=== PATIENT | female | born 1985 | race Caucasian/White ===

== ENCOUNTER → 2017-12-01 13:37 | Outpatient (CLI) | payer MEDICAID, SELFPAY ==
[2017-12-06 11:13] LABS: HPV Reflexed? NOT INDICATED
== END ==
PROVIDERS: PCP Family Medicine; Visit Provider Obstetrics & Gynecology
DX: Z12.4 Encounter for screening for malignant neoplasm of cervix (principal)
CPT/HCPCS: 88175; G0145

== ENCOUNTER → 2018-10-02 | Outpatient (CLI) | payer OTHER, SELFPAY | END | disposition home or self-care (01) | LOC: SL 11:31 | PROVIDERS: Family Provider Family Medicine; PCP Family Medicine; Referring Provider Family Medicine; Visit Provider Family Medicine | DX: G47.10 Hypersomnia, unspecified (principal); E66.01 Morbid (severe) obesity due to excess calories; Z68.41 Body mass index [BMI] 40.0-44.9, adult; R53.83 Other fatigue; R06.83 Snoring | CPT/HCPCS: 95806 ==

== ENCOUNTER → 2018-10-03 | Outpatient (CLI) | payer OTHER, SELFPAY ==
[2017-03-15 10:11] VITALS: BMI 38.4
[2018-10-05 21:08] LABS: Endomysial Antibody IgA Negative (Negative)
[2018-10-08 13:53] LABS: Immunoglobulin A 284 mg/dL (87-352); t-Transglutaminase IgA <2 U/mL (0-3)
== END | disposition home or self-care (01) ==
LOC: MTLAB 16:44
PROVIDERS: Family Provider Family Medicine; PCP Family Medicine; Referring Provider Internal Medicine Gastroenterology; Visit Provider Internal Medicine Gastroenterology
DX: R10.9 Unspecified abdominal pain (principal); R19.7 Diarrhea, unspecified
CPT/HCPCS: 36415; 82784; 83516; 86140; 86255

== ENCOUNTER 2018-10-21 19:49 | Emergency (ER) | payer OTHER, SELFPAY ==
[2018-10-21 19:50] VITALS: BP 160/112; PULSE 80; RESP 20; TEMP 37.3; O2SAT 100; BMI 41.1
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
[2018-10-21 21:48] VITALS: RESP 16
== END 2018-10-21 21:54 | disposition home or self-care (01) ==
LOC: ED 21:35
PROVIDERS: Emergency Provider Emergency Medicine; Family Provider Family Medicine; PCP Family Medicine
DX: S20.229A Contusion of unspecified back wall of thorax, initial encounter (principal); S40.012A Contusion of left shoulder, initial encounter; E06.3 Autoimmune thyroiditis; Z79.899 Other long term (current) drug therapy; Y04.2XXA Assault by strike against or bumped into by another person, initial encounter; Y93.89 Activity, other specified; Y92.009 Unspecified place in unspecified non-institutional (private) residence as the place of occurrence of the external cause; Y99.8 Other external cause status
CPT/HCPCS: 71046; 73010; 99282

== ENCOUNTER → 2019-01-15 10:12 | Outpatient (CLI) | payer MEDICAID, SELFPAY ==
--- NOTE | 2019-01-15 10:14 | US_ITS ---
STUDY: THYROID ULTRASOUND REASON FOR EXAM: Female, 33 years old. Thyromegaly. Jocelyn's. TECHNIQUE: Ultrasound evaluation of the thyroid was performed with real-time and static ortiz-scale imaging. COMPARISON: None. FINDINGS: RIGHT LOBE: The right lobe of the thyroid gland measures 5.0 x 1.5 x 1.7 cm. There is a homogeneous echotexture. There are no demonstrated solid, cystic or complex lesions. LEFT LOBE: The left lobe of the thyroid gland measures 4.4 x 1.5 x 1.3 cm. There is a homogeneous echotexture. There is a 1 cm hypoechoic lower pole nodule. ISTHMUS: The isthmus measures 3 mm . The regional lymph nodes are normal. US/Thyroid IMPRESSION: 1 cm left thyroid nodule which needs follow-up in 1 year. Otherwise unremarkable. Electronically Signed: Henry Gonzalez MD at 23:49 EST , Service support ,
== END ==
PROVIDERS: Family Provider Family Medicine; PCP Family Medicine; Referring Provider Family Medicine; Visit Provider Family Medicine
DX: E06.3 Autoimmune thyroiditis (principal)
CPT/HCPCS: 76536

== ENCOUNTER → 2020-02-04 15:56 | Outpatient (CLI) | payer MEDICAID, SELFPAY ==
[2019-03-15 13:58] VITALS: BMI 38.2
[2020-01-23 15:58] VITALS: BMI 35.2
--- NOTE | 2020-02-04 15:57 | US_ITS ---
HISTORY: NODULAR GOITER COMPARISON: 01/15/2019 TECHNIQUE: Real-time transabdominal imaging of the thyrod gland was performed. # of images incl. paperwork: 68 FINDINGS: RIGHT LOBE: The right lobe of the thyroid gland measures 5.0 x 1.5 x 1.7 cm. Normal parenchymal echogenicity. No focal thyroid nodules. LEFT LOBE: The left lobe of the thyroid gland measures 4.6 x 1.3 x 1.3 cm. Normal parenchymal echogenicity. There is a lower pole well-circumscribed round echogenic lesion that remains unchanged measuring 1.1 x 0.9 x 1.0 cm compatible with TIA-RADS 3. ISTHMUS: The isthmus measures 0.3 cm. OTHER: No adenopathy is seen in either jugular chain. US/Thyroid IMPRESSION: 1. Stable left lower pole 1.1 cm nodule compatible with TI-RADS Category 3: Mildly suspicious. (FNA if equal/greater than 2.5 cm, follow if equal/greater than 1.5 cm at 1, 3, 5 years). at 2323 Reported and signed by: Fred Walton MD Electronically Signed: Fred Walton MD at 23:22 EST Tel , Service support ,
== END ==
PROVIDERS: PCP Family Medicine; Referring Provider Internal Medicine Endocrinology, Diabetes & Metabolism; Visit Provider Internal Medicine Endocrinology, Diabetes & Metabolism
DX: E04.9 Nontoxic goiter, unspecified (principal)
CPT/HCPCS: 76536

== ENCOUNTER 2020-03-03 12:14 | Day surgery (SDC) | payer MEDICAID, SELFPAY ==
[2020-01-23 15:58] VITALS: BMI 35.2
--- NOTE | 2020-03-02 17:19 | PCM.HP.BLA ---
History and Physical Date of Admission: 03/03/20 HISTORY OF PRESENT ILLNESS 34 year old woman presents for evaluation for TBSE. She has concerns about lesions on her right upper lip near the perialar area, left neck, and upper mid back that have increased in size over the last several months and have become more raised in configuration. She denies trauma. She denies fever. She denies any drainage from these lesions. She presents at this time for further evaluation and treatment. PAST MEDICAL HISTORY Neoplasm of skin of upper back excluding scapular region Neoplasm of skin of neck Neoplasm of skin of lip Anemia Anxiety and depression Back pain Fatigue Frequent headaches Gastrointestinal problem Goiter Jocelyn's disease Hormone deficiency Knee pain Thyroid disease PAST SURGICAL HISTORY Gave to child recently tonsillectomy and adenoidectomy ALLERGIES latex penicillin G sulfamethoxazole [From Bactrim] trimethoprim [From Bactrim] MEDICATIONS dextroamphetamine-amphetamine Ropinirole HCl [Requip] Triamcinolone Acetonide [Nasacort] biotin cholecalciferol (vitamin D3) vitamin B complex levothyroxine fluoxetine FAMILY HISTORY Other - Anemia, Anesthesia complication, Asthma, CVA (cerebral vascular accident), Depression, Diabetes, Hypertension, Thyroid disorder SOCIAL HISTORY Smoking Status: Never smoker alcohol intake: current substance use type: does not use REVIEW OF SYSTEMS General - Denies fever and weight loss. Has fatigue. Eyes - Denies cataracts and glaucoma. ENT - Denies nasal congestion and sore throat. Endocrine - Has excessive thirst and urination. Has thyroid disease. Has heat and cold intolerance. Skin - Denies skin cancer. Has enlarging lesions right upper lip near the perialar area, left neck, and upper mid back. Musculoskeletal - Has joint pain, joint stiffness. Denies weakness of muscles and joints, back pain, and arthritis. Neuro - Denies headaches. Cardiovascular - Denies chest pain, fatigue, and shortness of breath with exertion. Psych - Has anxiety. Has depression. Has claustrophobia. Respiratory - Denies chronic cough and shortness of breath. Gastrointestinal - Denies nausea, vomiting, diarrhea, and constipation. Has IBS. Hematologic - Denies abnormal bruising and bleeding. Genitourinary - Denies hematuria. Has urinary frequency. PHYSICAL EXAMINATION General - Alert and Oriented. HEENT - PERRL. EOMI. Throat is clear. On the right upper lip near the perialar area is a lesion that is nodular. Measures 4 mm. Has central scab. Has irregular borders. Is raised in configuration. No ulceration. Lesion is nontender. No other suspicious lesions noted. Neck - Supple and nontender. No cervical adenopathy. On the left neck is a lesion that measures 7 mm. Has irregular borders. Some pigmentation. Is raised in configuration. No ulceration. Lesion is nontender. No other suspicious lesions noted. Lungs - Clear to auscultation. Heart - Regular rate and rhythm. Abdomen - Soft and nondistended. No suspicious lesions noted. Extremities - FROM. No axillary adenopathy. Radial pulses are palpable. No suspicious lesions noted. Back - On the upper mid back is a lesion that measures 8 mm. Has irregular borders. Some pigmentation. Is raised in configuration. No ulceration. Lesion is nontender. No other suspicious lesions noted. Neuro - CN II-XII grossly intact. Psych - Normal mood and affect. ASSESSMENT 1. 4 mm lesion right upper lip near the perialar area. 2. 7 mm lesion left neck. 3. 8 mm lesion upper mid back. PLAN Recommend excising these lesions (right upper lip near the perialar area, left neck, and upper mid back) and send them to Pathology for analysis to rule out carcinoma. If actinic damage or carcinoma is present, then further excision will be done with skin flap reconstruction. Surgery will be done on an outpatient basis under general anesthesia. Patient was informed of the risks and complications of the procedure including alternatives to surgery. These were discussed with the patient personally. Patient voices understanding and wishes to proceed. Some of the risks and complications were included in a form from the [employer]. We discussed the current risks associated with COVID-19. While it is understood that there is a community spread of COVID-19, the risk of ava COVID-19 while at [facility] ([facility]) is very low; however, the risk cannot be completely mitigated because of the community spread of the disease. We discussed in detail the risk of exposure to and/or potential harm posed by the COVID-19 virus with having a surgery/procedure at this time versus the risk of delaying the surgery/procedure. It is not possible to know either the risk of delaying the surgery or procedure or chance of getting an infection with perfect accuracy, but a joint decision was made to proceed at this time with the scheduled surgery/procedure as indicated on the consent form. Patient was notified that we will need to comply with any screening or testing [facility] wishes to perform or that surgery may be delayed for any positive results. Discussed with the patient that I was tested for COVID-19 on 08/15/19 which was negative and on 08/29/19 which was negative and on 09/12/19 which was negative and on 09/26/19 which was negative and on 10/10/19 which was negative and on 10/31/19 which was negative and on 11/21/19 which was negative and on 12/26/19 which was negative and on 01/16/20 which was negative and on 02/04/20 which was negative. My testing regimen at this time is to be COVID-19 tested every 2 weeks or so. I received the COVID-19 vaccine (Moderna) on 02/12/20. Procedure Criteria Procedure Type: Elective COVID Risk Discussion: The surgeon/proceduralist and patient have discussed in detail the risk of exposure to and/or potential harm posed by the COVID-19 virus with having a surgery/procedure at this time versus the risk of delaying the surgery/procedure. It is not possible to know either the risk of delaying the surgery or procedure or chance of getting an infection with perfect accuracy, but a joint decision was made between the patient and the surgeon/proceduralist to proceed at this time with the scheduled surgery/procedure as indicated on the consent form.
[2020-03-03] VITALS (8 sets, daily range): BP systolic 98–127; BP diastolic 61–88; PULSE 71–83; RESP 16–18; TEMP 36.6–36.8; O2SAT 95–98; BMI 35.8
--- NOTE | 2020-03-03 | LES_PTH ---
PATIENT: ELLIOTT KATZ LOC: [facility] [place] U#:[id number] AGE/SX: 35/F ROOM: RE03/03/[address]: Dr. Aman Hollins MD : 1985 BED: DIS: 03/03/2020 SPEC #: [id number] RECD: 03/03/20 14:47 STATUS: TYSHAWN RESara #: [id number] ENA: 03/03/20 00:[address]: Aman Hollins DEPT: SURGICAL PATHOLOGY RECD BY: Sona Moreno ENTERED: 03/03/20 15:06 SP TYPE: Lesion OTHR DR: Dr. Og Hopson DO Tissues: A - Skin of neck, NOS B - Skin of lip, NOS Procedures: Frozen Section (charge) Surgery Specimen Level IV HEADER OPERATION: Excision lesions, right upper lip by perialar area, left neck and upper mid back PRE-OP DIAGNOSIS: 4 mm lesion right upper lip near the perialar area; 7 mm lesion left neck; 8 mm lesion upper mid back TISSUE SUBMITTED: A - 7 mm lesion left neck, FS, B - 4 mm lesion right upper lip near the perialar area, FS, C - 8 mm lesion upper mid back, suture at 12 o'clock FROZEN SECTION DIAGNOSIS A. Skin lesion of left neck, shave biopsy: Intradermal nevus. B. Skin lesion, right upper lip, shave biopsy: Intradermal nevus. AM:clementine 03/03/2020 Case has been reviewed in consultation with Dr. Dukes who concurs with the above diagnosis. IDC:SJ MICROSCOPIC DIAGNOSIS A. Skin lesion of left neck, shave biopsy: Intradermal nevus. B. Skin lesion of right upper lip, shave biopsy: Intradermal nevus. C. Skin lesion of upper mid back, biopsy: Intradermal nevus. AM:clementine 03/05/2020 MICROSCOPIC DESCRIPTION Slides are reviewed. GROSS DESCRIPTION A - Received fresh for frozen section diagnosis labeled with the patient's name is a specimen designated left neck. The specimen consists of a piece of mckinney-brown skin measuring 0.6 x 0.2 x 0.1 cm. The specimen is inked and submitted entirely for frozen section diagnosis in one cassette. / AM:clementine 03/03/20 B - Received fresh for frozen section diagnosis labeled with the patient's name is a specimen designated right hip lip near the perialar area. The specimen consists of a piece of mckinney-brown skin measuring 0.5 x 0.2 x 0.1 cm. The specimen is inked and submitted entirely for frozen section diagnosis in one cassette. / AM:clementine 03/03/20 C - Received in fixative is one container labeled with the patient's name and designated lesion, upper mid back. The specimen consists of an ellipse of light mckinney soft tissue measuring 1.8 x 0.5 cm and a depth of excision measuring 0.7 cm. A suture is present along one aspect. This aspect is inked in black ink. The opposite surface is inked in blue ink. Serial sections reveal an exophytic mckinney lesion measuring 5 mm in greatest dimension. The specimen is serially sectioned and totally submitted in two cassettes as follows: 1 - tips, 2 - remainder of the specimen. / AM:clementine 03/04/20 TC:5 CPT: 07584 x3, 54615 x2
[2020-03-03 12:35] LABS: Internal QC Validated? YES +Cl - CLEAR BKGD; Pregnancy, Urine Negative Negative
[2020-03-03] MEDS: Lactated Ringers 1,000 ML 100 ML IV ×2 (12:46→15:16)
[2020-03-03] MEDS: Mupirocin Ointment 22gm Tube 1 APPLIC (14:55)
[2020-03-03] MEDS: Silver Nitrate (BKC) 1 EACH (14:56)
[2020-03-03] MEDS: Lidocaine 1%/Epi 1:200 (30ml) 30 ML AMPUL (15:00)
--- NOTE | 2020-03-03 15:23 | PCM.OPRPT ---
Report of Operation Date of Procedure: 03/03/20 Pre-Operative Diagnosis: 1. 4 mm lesion right upper lip near the perialar area. 2. 7 mm lesion left neck. 3. 8 mm lesion upper mid back. Post-Operative Diagnosis: 1. 4 mm intradermal nevus right upper lip near the perialar area. 2. 7 mm intradermal nevus left neck. 3. 8 mm lesion upper mid back. Surgery/Procedure Performed:: 1. Intradermal excision 4 mm intradermal nevus right upper lip near the perialar area. 2. Intradermal excision 7 mm intradermal nevus left neck. 3. Excision 8 mm lesion upper mid back with 3 cm layered closure. Description of Surgical Findings:: 34 year old woman presents for evaluation for TBSE. She has concerns about lesions on her right upper lip near the perialar area, left neck, and upper mid back that have increased in size over the last several months and have become more raised in configuration. She denies trauma. She denies fever. She denies any drainage from these lesions. Patient was informed of the risks and complications of the procedure including alternatives to surgery. These were discussed with the patient personally. Patient voices understanding and wishes to proceed. Some of the risks and complications were included in a form from the [employer]. Frozen section right upper lip near the perialar area - intradermal nevus. Frozen section left neck - intradermal nevus. front desk coordinator: None Type of Anesthesia:: Local MAC - xylocaine with epinephrine and IV sedation. Specimen's removed: 1. Lesion right upper lip near the perialar area to Pathology as a frozen section. 2. Lesion left neck to Pathology as a frozen section. 3. Lesion upper mid back to Pathology. Drains: None. Estimated Blood Loss (mL): 2 ml. Description of Procedure: Patient was taken to OR in supine position and was given IV sedation. The face and neck areas were prepped and draped in the usual fashion. SCD's were placed for DVT prophylaxis. Perioperative antibiotics were given intravenously. For the procedure, I wore an N95 mask and wore proper eyewear protection. The lesions right upper lip near the perialar area and the left neck were infiltrated with xylocaine and epinephrine. After waiting 5 minutes for the anesthetic to take effect, I proceeded with intradermal excision of both of these lesions (right upper lip near the perialar area and the left neck). Both lesions were sent to Pathology as a frozen section for analysis to rule out carcinoma. Frozen section showed both of these lesions (right upper lip near the perialar area and the left neck) were intradermal nevi and no carcinoma seen. Hemostasis was obtained with silver nitrate chemical cauterization. The patient was then placed in the lateral position and the back was prepped and draped in the usual fashion. The lesion upper mid back was infiltrated with xylocaine with epinephrine. After waiting 5 minutes for the anesthetic to take effect, I excised this lesion in an oblique elliptical fashion down into the subcutaneous tissue. A suture was marked at the 12 oclock position for pathology orientation. The lesion was sent to Pathology for analysis to rule out carcinoma. I excised the lesion with a 1 mm margin in all directions thus making it a 10 mm excision and a 3 cm layered closure. Hemostasis was obtained with electrocautery. The wound was closed in a layered fashion with 4-0 Monocryl interrupted sutures for the deep dermis and subcutaneous tissue. The skin was approximated with 4-0 Prolene simple interrupted sutures. Antibiotic ointment was applied to the suture line followed by a gauze compression dressing. Antibiotic ointment was also applied to the two shave lesions on the right upper lip near the perialar area and the left neck. Patient tolerated the procedure well and was sent to PACU in satisfactory condition. Patient will be sent home on antibiotics and pain medication. She will keep her head elevated during the initial postoperative period. Patient will followup in a week for a wound check and for discussion of the pathology report and for removal of the sutures. Grafts/Implants Used: None. - Complications None. - Admit VTE Documentation VTE Present on Admission: No VTE Mechan Device Prophylaxis: SCD's VTE Pharm Prophylaxis ordered?: No Surgery Charges CPT - 79956 ICD-10 - D23.30, D49.2 61247 D23.4, D49.2 24956 D49.2 58383 D49.2
--- NOTE | 2020-03-03 15:33 | PCM.DC ---
You will use the following diet at home:: No restrictions Discharge Activity: May not drive while taking narcotic pain medications., May Shower - in two days., - - no heavy lifting. Return to work on:: 03/04/20 - tentative May shower in (days): 2 May resume sexual activity in: No Restrictions Weight Bearing Status: Weight bearing as tolerated Lifting Restrictions: 20 lbs. Keep extremity elevated above heart level: - - elevate head. Call your doctor if your incision/area has: Continuous Slow Oozing, Sudden Increased Bleeding, Increased Pain/ Swelling, Increased Redness, Foul Smelling Discharge, Swelling at the incision site Call your doctor if you observe: Fever of 101 or Higher, Coldness, Increased Pain, Shortness of breath, Chest pain, Calf discomfort, Uncontrolled pain Suture Line Care: - - apply antibiotic ointment to suture line daily. Remove Dressing in (days):: 2 - back dressing. Cleanse incision/area with: - - may get incisions wet in shower in two days. Allergies/Adverse Reactions: Allergies latex Allergy (Intermediate, Verified 03/03/20 12:30) body rash penicillin G Allergy (Verified 03/03/20 12:30) Hives sulfamethoxazole [From Bactrim] Allergy (Verified 03/03/20 12:30) Anaphylaxis trimethoprim [From Bactrim] Allergy (Verified 03/03/20 12:30) Anaphylaxis Medications to take at Discharge dextroamphetamine-amphetamine 10 mg tablet 10 mg PO QDAY 01/20/17 dextroamphetamine-amphetamine 30 mg tablet 30 mg PO QDAY 01/20/17 Ropinirole HCl [Requip] 2 mg PO QHS 10/21/18 Triamcinolone Acetonide [Nasacort] 10.8 ml NS QHS 10/21/18 biotin 2,500 mcg capsule 2,500 mcg PO DAILY 03/15/19 cholecalciferol (vitamin D3) 250 mcg (10,000 unit) capsule 5,000 unit PO DAILY cap 03/15/19 vitamin B complex 1 tab PO DAILY 03/15/19 levothyroxine 112 mcg tablet 112 mcg PO DAILY #30 tab 11/13/19 fluoxetine 40 mg capsule 40 mg PO DAILY 01/23/20 Clindamycin HCl [Cleocin] 300 mg PO TID #12 cap 03/03/20 Oxycodone HCl/Acetaminophen [Percocet 5/325] 1 tablet PO Q6H PRN PRN 4 Days #15 tablet 03/03/20 The following prescriptions were given: Clindamycin HCl [Cleocin] 300 mg PO TID #12 cap Transmission Status: Pending to [facility] Oxycodone HCl/Acetaminophen [Percocet 5/325] 1 tablet PO Q6H PRN PRN 4 Days #15 tablet PRN Reason: Pain Score 6-10 Transmission Status: Sent to [facility] Primary Care Physician: Og Hopson DO [Primary Care Provider] - Test Results: Test results from this visit will be discussed in further detail at your follow-up appointment, if applicable. Please Follow Up With: Aman Hollins MD When: one week. call [phone] for appt. Proposed Discharge Date: 03/03/20
== END 2020-03-03 16:53 | disposition home or self-care (01) ==
LOC: SDC 12:15 → AC 12:15
PROVIDERS: Anesthesiology; PCP Family Medicine; Referring Provider Surgery; Visit Provider Surgery
PROC: (CPT 11400; principal; 2020-03-03 13:20)
DX: D23.0 Other benign neoplasm of skin of lip (principal); D23.4 Other benign neoplasm of skin of scalp and neck; D23.5 Other benign neoplasm of skin of trunk; F41.9 Anxiety disorder, unspecified; F32.9 Major depressive disorder, single episode, unspecified; E06.3 Autoimmune thyroiditis; Z79.899 Other long term (current) drug therapy; Z20.822 Contact with and (suspected) exposure to COVID-19
CPT/HCPCS: 00300; 11400; 11420; 11440; 12032; 81025; 87426; 88305; 88331; C9803; J7120

== ENCOUNTER 2020-04-15 17:41 | Emergency (ER) | payer MEDICAID, SELFPAY ==
[2020-04-15 17:44] VITALS: BP 121/69; PULSE 80; RESP 18; TEMP 37.2; O2SAT 93; BMI 40.4
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
[2020-04-15] MEDS: HYDROmorphone 1 MG/ML Syringe IV (18:01)
--- NOTE | 2020-04-15 18:16 | RAD_ITS ---
STUDY: X-RAY - RIGHT WRIST REASON FOR EXAM: Female, 35 years old. Pain. TECHNIQUE: 3 view(s) of the wrist were obtained. COMPARISON: None. FINDINGS: Normal visualized distal radius and ulna. Normal radiocarpal articulation. Normal distal radioulnar articulation. Normal carpal bones. Normal carpal articulations. Normal carpometacarpal articulation of the thumb. Normal second through fifth carpometacarpal articulations. Normal visualized metacarpal bones. The soft tissue structures are unremarkable. RAD/Wrist min 3 Views IMPRESSION: Normal x-ray examination of the wrist. Electronically Signed: Subhash Vivar DO at 18:39 EST Tel [phone], Service support ,
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
--- NOTE | 2020-04-15 18:36 | ED.RN ---
RN CALLED FOR EKG, NO OLD EKGS IN MUSE
--- NOTE | 2020-04-15 18:45 | EKG12_ITS ---
Test Reason : CHEST HEAVYNESS Blood Pressure : / mmHG Vent. Rate : 073 BPM Atrial Rate : 073 BPM P-R Int : 142 ms QRS Dur : 086 ms QT Int : 392 ms P-R-T Axes : -18 -22 139 degrees QTc Int : 431 ms Normal sinus rhythm Nonspecific T wave abnormality Abnormal ECG Consider repeat EKG Confirmed by RAMÓN QUARLES, ZAN ([id number]), dictionary editor SILVERIO HA ([id number]) on 04/20/2020 2:33:50 PM Referred By: ARTUR Confirmed By:ZAN MELGAR MD
[2020-04-15] MEDS: Lidocaine 1% (20 ml mdv) 20 ML Vial INFILT ×2 (18:57→20:20)
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
[2020-04-15 20:05] VITALS: BP 103/56; PULSE 97; RESP 18; O2SAT 98
[2020-04-15] MEDS: Morphine 4 MG/ML Syringe IV (20:32)
[2020-04-15] MEDS: LORazepam 2 MG/ML Syringe 1 MG IV (20:32)
[2020-04-15 21:43] VITALS: BP 103/70; PULSE 68; RESP 16; TEMP 36.8; O2SAT 98
== END 2020-04-15 21:45 | disposition home or self-care (01) ==
PROVIDERS: Emergency Provider Emergency Medicine; PCP Family Medicine
DX: S81.011A Laceration without foreign body, right knee, initial encounter (principal); S63.501A Unspecified sprain of right wrist, initial encounter; E03.9 Hypothyroidism, unspecified; F32.9 Major depressive disorder, single episode, unspecified; Z79.899 Other long term (current) drug therapy; V27.4XXA Motorcycle driver injured in collision with fixed or stationary object in traffic accident, initial encounter; Y93.55 Activity, bike riding; Y92.410 Unspecified street and highway as the place of occurrence of the external cause; Y99.8 Other external cause status
CPT/HCPCS: 12004; 73110; 73564; 73700; 93005; 96374; 96375; 99285

== ENCOUNTER 2020-04-29 17:39 | Outpatient (RCR) | payer MEDICAID, SELFPAY ==
[2020-04-21 13:41] VITALS: BMI 36.2
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
== END 2020-04-29 19:00 | disposition home or self-care (01) ==
LOC: PT 17:39
PROVIDERS: PCP Family Medicine; Referring Provider Orthopaedic Surgery; Visit Provider Orthopaedic Surgery
DX: S81.011A Laceration without foreign body, right knee, initial encounter (principal)
CPT/HCPCS: 97110; 97161

== ENCOUNTER → 2020-04-30 | Outpatient (CLI) | payer MEDICAID, SELFPAY | END | disposition home or self-care (01) | LOC: LABSPEC 10:38 | PROVIDERS: Visit Provider Orthopaedic Surgery | DX: S81.011D Laceration without foreign body, right knee, subsequent encounter (principal) | CPT/HCPCS: 87070; 87075; 87077; 87186; 87205 ==

== ENCOUNTER 2020-05-01 12:30 | Observation (INO) | payer MEDICAID, SELFPAY ==
[2020-04-21 13:41] VITALS: BMI 36.2
[2020-05-01] VITALS (11 sets, daily range): BP systolic 99–133; BP diastolic 49–82; PULSE 57–72; RESP 14–16; TEMP 36.4–36.7; O2SAT 94–100; BMI 36.6; BMI 36.3
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
[2020-05-01 10:32] LABS: Internal QC Validated? YES +Cl - CLEAR BKGD
[2020-05-01 10:34] LABS: Pregnancy, Urine Negative Negative
[2020-05-01] MEDS: Cefazolin 2 GM in 0.9% Normal Saline 100 ML IV (12:02)
--- NOTE | 2020-05-01 12:30 | SOF_PTH ---
PATIENT: ELLIOTT KATZ LOC: MS3 U#:[id number] AGE/SX: 35/F ROOM: [facility] RE05/01/[address]: Dr. Courtney Ruiz DO : 1985 BED: 1 DIS: 05/02/2020 SPEC #: [id number] RECD: 05/01/20 13:59 STATUS: TYSHAWN BOBBY #: [id number] ENA: 05/01/20 12:[address]: Courtney Ruiz DEPT: SURGICAL PATHOLOGY RECD BY: Mary Kay Sargent ENTERED: 05/04/20 07:54 SP TYPE: SOFT TISS OTHR DR: Dr. Og Hopson, Tissues: Soft tissues, NOS Procedures: Surgery Specimen Level IV HEADER OPERATION: Proximal leg incision/drainage/irrigation/debridement PRE-OP DIAGNOSIS: Laceration of left knee TISSUE SUBMITTED: Right proximal leg tissue MICROSCOPIC DIAGNOSIS Right proximal leg tissue, biopsy: Fibrofatty tissue with fat necrosis and associated reactive change. AM:clementine 05/05/2020 MICROSCOPIC DESCRIPTION Slides are reviewed. GROSS DESCRIPTION Received in fixative is one container labeled with the patient's name and designated right proximal leg tissue. The specimen consists of multiple irregular fragments of yellow fatty tissue that in aggregate measure 2 x 1 x 0.2 cm. The specimen is totally submitted in one cassette. / AM:clementine 05/04/20 TC:5 CPT: 25628
--- NOTE | 2020-05-01 12:36 | PCM.DC.ORTHO ---
Discharge Diet: No Restrictions - wbat left right leg, follow up in ortho in one week, elevate, ankle pumps, ice as tolerated Discharge Activity: May Not Drive May shower in (days): 1 Ice area for (Minutes): 20 - Every hour while awake. Weight Bearing Status: Weight bearing as tolerated Keep extremity elevated above heart level: Operative Extremity Call your doctor if your incision/area has: Continuous Slow Oozing, Sudden Increased Bleeding, Increased Pain/ Swelling, Increased Redness, Foul Smelling Discharge Call your doctor if you observe: Fever of 101 or Higher, Coldness, Increased Pain, Numbness or Tingling, Change in Color, Calf discomfort Allergies/Adverse Reactions: Allergies latex Allergy (Intermediate, Verified 05/01/20 10:11) body rash penicillin G Allergy (Verified 05/01/20 10:11) Hives shellfish derived Allergy (Verified 05/01/20 10:11) Rash sulfamethoxazole [From Bactrim] Allergy (Verified 05/01/20 10:11) Anaphylaxis trimethoprim [From Bactrim] Allergy (Verified 05/01/20 10:11) Anaphylaxis Medications to take at Discharge dextroamphetamine-amphetamine 10 mg tablet 10 mg PO 1300 01/20/17 dextroamphetamine-amphetamine 30 mg tablet 30 mg PO 0630 01/20/17 Ropinirole HCl [Requip] 2 - 4 mg PO QHS 10/21/18 levothyroxine 112 mcg tablet 112 mcg PO DAILY #30 tab 11/13/19 fluoxetine 40 mg capsule 40 mg PO DAILY 01/23/20 Oxycodone HCl/Acetaminophen [Oxycodone-Acetaminophen 5-325] 1 each PO PRN PRN 04/30/20 Oxycodone HCl/Acetaminophen [Percocet 5/325] 1 - 2 tablet PO Q6H PRN PRN 5 Days #28 tablet 05/01/20 The following prescriptions were given: Oxycodone HCl/Acetaminophen [Percocet 5/325] 1 - 2 tablet PO Q6H PRN PRN 5 Days #28 tablet PRN Reason: Pain Transmission Status: Sent to [facility] Primary Care Physician: Og Hopson DO [Primary Care Provider] - Test Results: Test results from this visit will be discussed in further detail at your follow-up appointment, if applicable. Please Follow Up With: Courtney Ruiz DO - [phone]
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
[2020-05-01] MEDS: HYDROcodone Bitartrate/Apap 5/325 Tablet PO ×2 (16:05→23:06)
[2020-05-01 17:19] LABS: Anion Gap 8 (5-15); BUN 13 mg/dL (7-18); BUN/Creat Ratio 15.6 RATIO (10-20); Calcium,Total 8.4 mg/dL (8.5-10.1); Chloride 106 mmol/L (98-107); Creatinine, Serum 0.83 mg/dL (0.55-1.02); EST Glomerular Filtration Rate 83 mL/min (>60); Est Glom Filt Rate - Afr Amer 100 mL/min (>60); Estimated Creatinine Clearance 81.69 ml/min; Glucose 120 mg/dL (74-106); Potassium 4.1 mmol/L (3.5-5.1); Sodium Level 139 mmol/L (136-145)
--- NOTE | 2020-05-01 17:50 | PCM.RX.CS ---
Consult Pharmacy has been consulted to manage selected antiobiotic: Vancomycin Type of Consult: New start Suspected Infection: Skin/Soft tissue Labs: Sodium 139 mmol/L (136-145) 05/01/20 16:40 Potassium 4.1 mmol/L (3.5-5.1) 05/01/20 16:40 Chloride 106 mmol/L (98-107) 05/01/20 16:40 Carbon Dioxide 25.0 mmol/L (21.0-32.0) 05/01/20 16:40 Anion Gap 8 (5-15) 05/01/20 16:40 BUN 13 mg/dL (7-18) 05/01/20 16:40 Creatinine 0.83 mg/dL (0.55-1.02) 05/01/20 16:40 Est GFR (MDRD) Af Amer 100 mL/min (>60) 05/01/20 16:40 Est GFR (MDRD) Non-Af 83 mL/min (>60) 05/01/20 16:40 BUN/Creatinine Ratio 15.6 RATIO (10-20) 05/01/20 16:40 Glucose 120 mg/dL (74-106) H 05/01/20 16:40 Microbiology: Microbiology 05/01/20 12:40 Tissue - Leg, Right Gram Stain - Final 05/01/20 12:40 Wound - Leg, Right Gram Stain - Final 04/30/20 11:55 Interface Orders SARS-CoV-2 Antigen (Rapid) - Final Goal Trough: 15-20 mcg/mL Pharmacy Plan for Drug Dosing: NEW START IV VANCOMYCIN Consulting Physician: Dr. Sterling Indication: Wound infection Goal Trough: 15-20 SrCr: 0.83 CrCl: 82 mL/min Comments: Loding dose 2000mg IV x1 ordered and administered 05/01 @1640 Vancomcyin Dose: 1750 mg IV Q12hr to start 05/02/20 @0500 Pending Level: 05/03/20 @0430, prior to 4th total dose per protocol Pharmacy Service will continue to monitor and adjust dosing as required.
[2020-05-01] MEDS: Pramipexole Di-HCl 1 MG Tablet PO (21:19)
[2020-05-01] MEDS: 0.9% Saline Lock 10 ML Syringe IV (23:09)
[2020-05-02 01:00] VITALS: BP 104/66; PULSE 60; RESP 16; TEMP 36.4; O2SAT 95
[2020-05-02] MEDS: 0.9% Saline Lock 10 ML Syringe IV ×2 (05:09→14:41)
[2020-05-02] MEDS: HYDROcodone Bitartrate/Apap 5/325 Tablet PO ×2 (05:09→12:33)
[2020-05-02] MEDS: Levothyroxine 112 MCG Tablet PO (05:10)
[2020-05-02 05:14] VITALS: BP 104/63; PULSE 59; RESP 16; TEMP 36.4; O2SAT 97
[2020-05-02 09:09] VITALS: BP 125/66; PULSE 64; RESP 16; TEMP 36.6; O2SAT 95
[2020-05-02] MEDS: FLUoxetine 20 MG Capsule 40 MG PO (09:10)
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
[2020-05-02 14:38] VITALS: BP 108/56; PULSE 67; RESP 16; TEMP 37.2; O2SAT 95
== END 2020-05-02 15:30 | disposition home or self-care (01) ==
LOC: SDC 13:49 → MS3 13:51
PROVIDERS: Anesthesiology; Internal Medicine Infectious Disease; Admitting Provider Orthopaedic Surgery; PCP Family Medicine; Visit Provider Orthopaedic Surgery
PROC: (CPT 11043; principal; 2020-05-01 12:20)
DX: S81.011A Laceration without foreign body, right knee, initial encounter (principal); V23.4XXA Motorcycle driver injured in collision with car, pick-up truck or van in traffic accident, initial encounter; Y93.89 Activity, other specified; Y92.9 Unspecified place or not applicable; Y99.9 Unspecified external cause status; F41.9 Anxiety disorder, unspecified; F32.9 Major depressive disorder, single episode, unspecified; E06.3 Autoimmune thyroiditis; E04.9 Nontoxic goiter, unspecified; Z20.828 Contact with and (suspected) exposure to other viral communicable diseases; Z79.899 Other long term (current) drug therapy; G25.81 Restless legs syndrome
CPT/HCPCS: 00400; 11043; 36415; 80048; 81025; 87015; 87070; 87075; 87077; 87102; 87116; 87186; 87205; 87206; 87426; 88305; 96365; 96366; 96367; 99218; C9803; J7040; J7050; J7120; A4216; G0378; G0379; J0295; J2405

== ENCOUNTER → 2020-12-04 14:51 | Outpatient (CLI) | payer MEDICAID, SELFPAY ==
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
== END ==
PROVIDERS: PCP Family Medicine; Referring Provider Family Medicine; Visit Provider Family Medicine
DX: E04.1 Nontoxic single thyroid nodule (principal)
CPT/HCPCS: 76536

== ENCOUNTER 2021-02-25 07:24 | Outpatient (CLI) | payer MEDICAID, SELFPAY ==
--- NOTE | 2021-02-25 07:26 | CT_ITS ---
HISTORY: CHRONIC SINUSITIS. TECHNIQUE: Helically acquired images were obtained of the paranasal sinuses. A radiation dose optimization technique was used for this scan. IV Contrast dosage and agent: None. # of images incl. paperwork: 668. COMPARISON: None. FINDINGS: MAXILLARY SINUSES: Severe opacification of the right maxillary sinus. OSTIOMEATAL COMPLEXES: Patent bilaterally. FRONTAL SINUSES: Well aerated. ETHMOID SINUSES: Mild bubbly fluid in the left posterior ethmoid. SPHENOID SINUSES: Clear. NASAL CAVITY: Clear. NASAL SEPTUM: No severe deviation or obstructing spur. MASTOID AIR CELLS: Clear. ORBITS: Symmetric contents. CT/Sinus/Facial Bone IMPRESSION: Right maxillary sinusitis. Individualized dose optimization techniques were used for this CT. at 0805 Reported and signed by: Carlene Trotter MD Electronically Signed: Carlene Trotter MD at 8:04 EST Tel , Service support ,
== END 2021-02-25 23:59 | disposition short-term general hospital (02) ==
LOC: CT 07:25
PROVIDERS: PCP Family Medicine; Referring Provider Otolaryngology; Visit Provider Otolaryngology
DX: J32.2 Chronic ethmoidal sinusitis (principal)
CPT/HCPCS: 70486

== ENCOUNTER 2021-03-19 07:21 | Day surgery (SDC) | payer MEDICAID, SELFPAY ==
[2021-03-19 07:49] VITALS: BP 110/73; PULSE 59; RESP 18; TEMP 36.5; O2SAT 100; BMI 38.0
[2021-03-19 07:49] LABS: Internal QC Validated? YES +Cl - CLEAR BKGD; Pregnancy, Urine Negative Negative
[2021-03-19] MEDS: Lactated Ringers 1,000 ML 15 ML IV (08:00)
[2021-03-19] MEDS: Oxymetazoline 0.05% 1 SPRAY SPRAY.BTL 15 SPRAY (08:58)
[2021-03-19] MEDS: Lidocaine 4% 50 ML Bottle (08:58)
[2021-03-19] MEDS: Lidocaine 1%/Epi 1:200 (30ml) 30 ML AMPUL OPERA.SITE (08:58)
--- NOTE | 2021-03-19 09:10 | NASAL_PTH ---
PATIENT: ELLIOTT KATZ LOC: [facility] [place] U#:[id number] AGE/SX: 36/F ROOM: RE03/19/[address]: Dr. Burke Hayden MD : [id number] BED: DIS: 03/19/2021 SPEC #: [id number] RECD: 03/22/21 07:22 STATUS: TYSHAWN BOBBY #: [id number] ENA: 03/19/21 09:[address]: Burke Hayden DEPT: SURGICAL PATHOLOGY RECD BY: Mary Kay Sargent ENTERED: 03/22/21 08:02 SP TYPE: NASAL SPEC OTHR DR: Dr. Og Hopson, Tissues: A - Ethmoid sinus, NOS B - Ethmoid sinus, NOS C - Nasal septum, NOS Procedures: Decalcification bone/plaque Surgery Specimen Level III Surgery Specimen Level IV HEADER OPERATION: Septoplasty, anterior ethmoidectomy, limited endoscopy PRE-OP DIAGNOSIS: Chronic maxillary sinusitis, deviated nasal septum, polyp of nasal sinus TISSUE SUBMITTED: A ? Left sinus contents, B ? right sinus contents, C ? Nasal septal submucosal tissue MICROSCOPIC DIAGNOSIS A. Left sinus contents: Fragments of respiratory mucosa with chronic inflammation and bone. B. Right sinus contents: Fragments of respiratory mucosa with chronic inflammation and bone. C. Nasal septal submucosal tissue: Fragments of cartilage and bone, clinically deviated nasal septum. HARRY:clementine 03/25/2021 MICROSCOPIC DESCRIPTION Slides are reviewed. GROSS DESCRIPTION A - Received in fixative is one container labeled with the patient's name and designated left sinus contents. The specimen consists of multiple irregular fragments of mckinney-pink soft tissue mixed with fragments of bone that in aggregate measure 2.5 x 2.5 x 0.2 cm. The specimen is totally submitted in one cassette after decalcification. B - Received in fixative is one container labeled with the patient's name and designated right sinus contents. The specimen consists of multiple irregular fragments of mckinney-pink soft tissue mixed with fragments of bone that in aggregate measure 4 x 3 x 0.2 cm. The specimen is totally submitted in two cassettes after decalcification. C - Received in fixative is one container labeled with the patient's name and designated nasal septal submucosal tissue. The specimen consists of multiple irregular fragments of bone and cartilage that in aggregate measure 5 x 3 x 0.3 cm. The specimen is totally submitted in two cassettes after decalcification. / HARRY:clementine 03/22/2021 TC:3 CPT: 15634 x2, 43506, 06492 x3
[2021-03-19] MEDS: Bacitracin 500 UNITS/GM PACKET (09:48)
--- NOTE | 2021-03-19 09:48 | PCM.OPRPT ---
Problems Associated Problem List Diagnoses (1) Chronic maxillary sinusitis: (2) Chronic ethmoidal sinusitis: (3) Deviated nasal septum: (4) Ethmoid polyps: Report of Operation Date of Procedure: 03/19/21 Pre-Operative Diagnosis: Chronic maxillary, ethmoid sinusitis, nasal polyps, deviated nasal septum Post-Operative Diagnosis: Same Surgery/Procedure Performed:: Septoplasty, bilateral endoscopic maxillary antrostomies, anterior ethmoidectomies Description of Surgical Findings:: Junie is a 36-year-old female with chronic postnasal drip and nasal congestion with exam showing left deviation of nasal septum with obstructing nasal polyps and CT scan showing a chronic right maxillary sinusitis. She had failed to resolve despite appropriate medical therapy and surgery was offered in hopes of relief of these complaints and she was eager to proceed. The risks, alternatives, potential complications, and benefits were discussed at length and any questions answered to the patient and/or caregiver's satisfaction. Witnessed informed consent was obtained in the office, and the patient and/or caregiver was agreeable to proceed. Procedure went as follows: The patient was identified in the preoperative holding and brought to the operating room, was placed under general anesthesia and intubated. When appropriate anesthesia was obtained, pledgets soaked in a 50-50 mixture of oxymetazoline and 4% topical lidocaine were placed to decongest the nasal mucosa. The nasal septum was then injected beginning on the left side with 1% lidocaine with 100,000 epinephrine for a total of 4 mL. The pledgets were then removed and the left nasal cavity examined. There was noted to be significant nasal septal deviation to the left high and posteriorly. Using a 15 blade scalpel, a hemitransfixion incision was then made on the left side and using the [place] elevator a subperichondrial/periosteal flap was elevated. The septum was then transected at the bony cartilaginous junction and a similar flap raised on the contralateral side. Using a Andrea forceps, the septum was then sharply transected superiorly and the deviated portions removed with a Stephen forceps. The hemitransfixion incision was then closed with interrupted 4-0 chromic gut suture followed by a 4-0 plain quilting suture to reapproximate the mucosal flaps. Attention was then turned to the sinus surgery portion of the procedure. Beginning on the left side using a 0? endoscope the nasal cavity examined. The insertion of the middle turbinate and uncinate process was then injected with 1% lidocaine with 100,000 epinephrine for a total of 2 mL, and a similar injection was then carried on the contralateral side. Upon returning to the left side, the middle turbinate was medialized with a [place] elevator. There was noted to be a large polyp which was removed with the microdebrider that arose from the insertion of the middle turbinate. This allowed examination of the maxillary sinus ostia which was then probed with a double ball seeker. The uncinate process was then outfractured with a J curette and transected with a backbiting forceps. This was then removed with the microdebrider creating a wide maxillary antrostomy. The ethmoid bulla was then entered and a anterior ethmoidectomy was then carried out working posteriorly to anterior. Any polyps, scar, and mucous secretions were removed. Pledgets soaked in oxymetazoline were then placed for hemostasis and attention turned to the contralateral side. Similar procedure and findings were then carried out. Scott splints coated with Bacitracin ointment were then applied to each nasal cavity and secured at the columella with a single 3-0 Prolene suture. An NG tube was then placed to decompress the stomach and the patient returned to anesthesia, revived and extubated having tolerated the procedure well. Surgeon: Burke Hayden Type of Anesthesia: General Anesthesiologist: Cedric Barnes Specimen's removed: sinus and septal contents Drains: none Estimated Blood Loss (mL): 50 mL Fluids Replaced: 1100 mL Grafts/Implants Used: Scott splints Complications none Admit VTE Documentation VTE Present on Admission: No VTE Mechan Device Prophylaxis: SCD's VTE Pharm Prophylaxis ordered?: No
--- NOTE | 2021-03-19 09:57 | DCINST_ITS ---
Discharge Instructions Diet Discharge Diet: No restrictions Activity Discharge Activity: Return to Normal Activity Dressing / Incision Call your doctor if your incision/area has: Sudden Increased Bleeding, Increased Pain/ Swelling and Foul Smelling Discharge Call your doctor if you observe: Fever of 101 or Higher and Uncontrolled pain Follow Up Care Please Follow Up With: Burke Hayden MD When: 5 days Test Results: Test results from this visit will be discussed in further detail at your follow-up appointment, if applicable. Discharge Plan Admission Primary Reason for Your Visit: deviated nasal septum, chronic sinusitis Attending Provider: Burke Hayden Primary Care Provider: Og Hopson Discharge Orders/Prescriptions Prescriptions: New hydrocodone-acetaminophen 5-325 mg Tablet 1 tab PO Q6H PRN PRN (Reason: Pain Score 4-10/10) 5 Days Qty: 10 RF: 0 acetaminophen 500 mg Tablet 500 mg PO Q4H PRN PRN (Reason: Pain Score 1-5/10) Qty: 0 RF: 0 ibuprofen 200 mg Tablet 400 mg PO Q6H PRN PRN (Reason: Pain Score 4-10/10) Qty: 0 RF: 0 Continued dextroamphetamine-amphetamine [Adderall] 30 mg tablet 30 mg PO DAILY RF: 0 dextroamphetamine-amphetamine [Adderall] 10 mg tablet 10 mg PO DAILY@1400 RF: 0 norgestimate-ethinyl estradiol 0.18/0.215/0.25 mg-25 mcg tablet 1 ea PO DAILY RF: 0 ropinirole 1 MG tablet 2 - 4 mg PO QHS PRN (Reason: RESTLESS LEGS) RF: 0 alprazolam 0.5 MG tablet 0.5 - 1 tablet PO DAILY PRN PRN (Reason: Anxiety) RF: 0 thyroid (pork) [[employer] Thyroid] 60 mg Tablet 60 mg PO DAILY RF: 0 omeprazole 40 mg Capsule,Delayed Release(Dr/Ec) 40 mg PO DAILY RF: 0 Referrals / Follow Up: Og Hopson DO [Primary Care Provider] - Disposition Disposition (needs filled in before D/C Order can be placed): Home, Self Care
[2021-03-19 10:05] VITALS: BP 110/73; BP 125/95; PULSE 77; RESP 16; TEMP 36.6; O2SAT 98
[2021-03-19 10:15] VITALS: BP 110/73; BP 119/69; PULSE 69; RESP 16; O2SAT 96
[2021-03-19 10:30] VITALS: BP 110/73; BP 118/81; PULSE 64; RESP 16; O2SAT 93
[2021-03-19 10:45] VITALS: BP 110/73; BP 118/71; PULSE 65; RESP 16; TEMP 36.6; O2SAT 93
[2021-03-19 11:35] VITALS: BP 110/73; BP 120/74; PULSE 66; RESP 16; TEMP 36.7; O2SAT 94
== END 2021-03-19 23:59 | disposition home or self-care (01) ==
LOC: SDC 07:22 → AC 07:23
PROVIDERS: Anesthesiology; PCP Family Medicine; Referring Provider Otolaryngology; Visit Provider Otolaryngology
PROC: (CPT 30520; principal; 2021-03-19 08:40)
DX: J34.2 Deviated nasal septum (principal); J32.0 Chronic maxillary sinusitis; J32.2 Chronic ethmoidal sinusitis; J33.8 Other polyp of sinus; J34.3 Hypertrophy of nasal turbinates; E06.3 Autoimmune thyroiditis; K21.9 Gastro-esophageal reflux disease without esophagitis; G25.81 Restless legs syndrome; F41.9 Anxiety disorder, unspecified; Z79.899 Other long term (current) drug therapy; Z86.16 Personal history of COVID-19
CPT/HCPCS: 30520; 31267; 31254; 00160; 81025; 88304; 88305; 88311; J7120; J2405

== ENCOUNTER 2021-05-13 14:02 | Outpatient (CLI) | payer MEDICAID, SELFPAY ==
[2021-05-13 13:26] LABS: Amphetamine Urine VISTA NEGATIVE (<1000 ng/mL); Barbiturate Urine VISTA NEGATIVE (< 200 ng/mL); Benzodiazepine Urine VISTA NEGATIVE (< 200 ng/mL); Cocaine Urine VISTA NEGATIVE (< 300 ng/mL); Ecstacy Urine VISTA NEGATIVE (< 500 ng/mL); Methadone Urine VISTA NEGATIVE (< 300 ng/mL); PCP Urine VISTA NEGATIVE (< 25 ng/mL); THC Urine VISTA NEGATIVE (< 50 ng/mL); Vista UDS pH Range 6
[2021-05-16 09:08] LABS: Chlamydia By Nucleic Acid AMP Negative (Negative)
[2021-05-16 10:20] LABS: Gonococcus By Nucleic Acid AMP Negative (Negative)
[2021-05-19 16:39] LABS: HPV APTIMA, High Risk Negative (Negative)
== END 2021-05-13 23:59 | disposition home or self-care (01) ==
LOC: LABSPEC 14:03
PROVIDERS: PCP Family Medicine; Visit Provider Obstetrics & Gynecology
DX: Z34.90 Encounter for supervision of normal pregnancy, unspecified, unspecified trimester (principal)
CPT/HCPCS: 80307; 87086; 87088; 87491; 87591; 87624; 88175; G0145

== ENCOUNTER 2021-05-21 11:38 | Outpatient (CLI) | payer MEDICAID, SELFPAY ==
[2021-05-21 12:10] LABS: Absolute Lymphocyte Count 2.24 X10^3/uL (0.83-4.51); Absolute Neutrophil Count 6.3 X10^3/uL (2.0-7.7); Basophil# 0.02 X10^3/uL; Basophil% 0.2 % (0-1); Eosinophils% 1.1 % (0-5); Hemoglobin 10.9 g/dL (12.0-15.0); Lymphocyte # 2.24 X10^3/ul (0.83-4.51); Mean Corp Hgb Conc 31.1 g/dL (32-36); Mean Corpuscular Hgb 26.8 pg (27.0-32.0); Mean Corpuscular Volume 86.2 fL (81-99); Mean Platelet Vol. 9.7 fl (6.2-12.0); Monocyte# 0.69 X10^3/uL; Monocyte% 7.4 % (0-10); NRBC Flagged by Analyzer 0 % (0-5); Neutrophil # 6.25 X10^3/uL (2.7-7.7); Neutrophil % 66.9 % (47-70); Platelet Count 310 K/mm3 (150-450); RBC Distribution Width SD 44.3 fl (35.1-43.9); Red Blood Count 4.06 M/mm3 (4.2-5.4); White Blood Count 9.3 K/mm3 (4.4-11.0)
[2021-05-21 12:41] LABS: Glucose Challenge Gest 1H 50g 94 mg/dL (70-140); T4 Free Direct 0.94 ng/dL (0.76-1.46); Thyroid Stim Hormone (TSH) 1.79 uIU/mL (0.358-3.74)
[2021-05-21 13:49] LABS: HIV - WCH Non-Reactive (Nonreactive); Hepatitis B Surface Antigen Non-Reactive (Nonreactive); Hepatitis C Antibody Non-Reactive (Nonreactive); Rubella IgG Reactive (Nonreactive); Syphilis Antibodies Non-reactive
[2021-05-25 12:01] LABS: Thyroid Peroxidase AB 9 IU/mL (0-34)
[2021-05-25 12:19] LABS: Thyroglobulin Antibody < 1.0 IU/mL (0.0-0.9)
== END 2021-05-21 23:59 | disposition home or self-care (01) ==
PROVIDERS: PCP Family Medicine; Referring Provider Obstetrics & Gynecology; Visit Provider Obstetrics & Gynecology
DX: Z34.90 Encounter for supervision of normal pregnancy, unspecified, unspecified trimester (principal); Z31.430 Encounter of female for testing for genetic disease carrier status for procreative management; E06.3 Autoimmune thyroiditis
CPT/HCPCS: 36415; 82950; 84439; 84443; 85025; 86376; 86703; 86762; 86780; 86800; 86803; 86850; 86900; 86901; 87340

== ENCOUNTER → 2021-09-21 | Outpatient (CLI) | payer MEDICAID, SELFPAY ==
[2021-09-21 15:55] LABS: Absolute Lymphocyte Count 2.01 X10^3/uL (0.83-4.51); Absolute Neutrophil Count 7.7 X10^3/uL (2.0-7.7); Basophil# 0.03 X10^3/uL; Basophil% 0.3 % (0-1); Eosinophil# 0.07 X10^3/uL; Eosinophils% 0.7 % (0-5); Hematocrit 33.2 % (37-47); Hemoglobin 10.4 g/dL (12.0-15.0); Lymphocyte # 2.01 X10^3/ul (0.83-4.51); Lymphocyte % 19.1 % (19-41); Mean Corp Hgb Conc 31.3 g/dL (32-36); Mean Corpuscular Hgb 26.5 pg (27.0-32.0); Mean Corpuscular Volume 84.7 fL (81-99); Mean Platelet Vol. 10.1 fl (6.2-12.0); Monocyte# 0.63 X10^3/uL; NRBC Flagged by Analyzer 0 % (0-5); Neutrophil # 7.69 X10^3/uL (2.7-7.7); Neutrophil % 73.1 % (47-70); Platelet Count 259 K/mm3 (150-450); RBC Distribution Width SD 54.1 fl (35.1-43.9); Red Blood Count 3.92 M/mm3 (4.2-5.4); White Blood Count 10.5 K/mm3 (4.4-11.0)
[2021-09-21 16:21] LABS: Glucose Challenge Gest 1H 50g 153 mg/dL (70-140); T4 Free Direct 0.79 ng/dL (0.76-1.46)
[2021-09-23 08:40] LABS: Thyroid Peroxidase AB 19 IU/mL (0-34)
== END | disposition home or self-care (01) ==
LOC: PAVLAB 14:53
PROVIDERS: Nurse Practitioner Women's Health; PCP Family Medicine; Referring Provider Obstetrics & Gynecology; Visit Provider Obstetrics & Gynecology
DX: O26.899 Other specified pregnancy related conditions, unspecified trimester (principal); Z67.91 Unspecified blood type, Rh negative; O99.280 Endocrine, nutritional and metabolic diseases complicating pregnancy, unspecified trimester; E06.3 Autoimmune thyroiditis
CPT/HCPCS: 36415; 82950; 84439; 84443; 85025; 86376; 86900; 86901

== ENCOUNTER → 2021-09-30 | Outpatient (CLI) | payer MEDICAID, SELFPAY ==
[2021-09-30 08:36] LABS: Glucose GTT-Gestation. Fasting 86 mg/dL (<105)
[2021-09-30 09:34] LABS: Glucose GTT-Gestational 1 Hr 193 mg/dL (<190)
[2021-09-30 11:10] LABS: Glucose GTT-Gestational 2 Hr 149 mg/dL (<165)
[2021-09-30 11:45] LABS: Glucose GTT-Gestational 3 Hr 99 L (<145)
== END | disposition home or self-care (01) ==
LOC: LAB 07:49
PROVIDERS: PCP Family Medicine; Visit Provider Nurse Practitioner Women's Health
DX: Z13.1 Encounter for screening for diabetes mellitus (principal)
CPT/HCPCS: 36415; 82951; 82952

== ENCOUNTER → 2021-10-26 | Outpatient (CLI) | payer MEDICAID, SELFPAY ==
[2021-10-26 09:44] LABS: Absolute Lymphocyte Count 2.05 X10^3/uL (0.83-4.51); Absolute Neutrophil Count 7.4 X10^3/uL (2.0-7.7); Basophil# 0.02 X10^3/uL; Basophil% 0.2 % (0-1); Eosinophil# 0.06 X10^3/uL; Eosinophils% 0.6 % (0-5); Hematocrit 36.3 % (37-47); Hemoglobin 11.6 g/dL (12.0-15.0); Lymphocyte # 2.05 X10^3/ul (0.83-4.51); Lymphocyte % 19.9 % (19-41); Mean Corpuscular Hgb 27.6 pg (27.0-32.0); Mean Corpuscular Volume 86.4 fL (81-99); Mean Platelet Vol. 10.4 fl (6.2-12.0); Monocyte% 6.8 % (0-10); NRBC Flagged by Analyzer 0 % (0-5); Neutrophil # 7.42 X10^3/uL (2.7-7.7); Platelet Count 255 K/mm3 (150-450); RBC Distribution Width CV 17.1 % (11.6-14.6); RBC Distribution Width SD 54.4 fl (35.1-43.9); White Blood Count 10.3 K/mm3 (4.4-11.0)
== END | disposition home or self-care (01) ==
LOC: PAVLAB 09:25
PROVIDERS: Nurse Practitioner Women's Health; PCP Family Medicine; Referring Provider Obstetrics & Gynecology; Visit Provider Obstetrics & Gynecology
DX: O99.012 Anemia complicating pregnancy, second trimester (principal)
CPT/HCPCS: 36415; 85025

== ENCOUNTER → 2021-11-11 | Outpatient (CLI) | payer MEDICAID, SELFPAY ==
--- NOTE | 2021-11-11 13:03 | US_ITS ---
STUDY: SECOND AND THIRD TRIMESTER OBSTETRICAL ULTRASOUND - LIMITED REASON FOR EXAM: Female, 36 years old growth -- now and every 4 weeks -- well being LMP: 03/16/2021. PRIOR ULTRASOUND: Prior comparison studies are not available for review at this time. TECHNIQUE: Transabdominal TECHNICAL QUALITY: Adequate. FINDINGS: There is a single intrauterine fetus. The fetus is in an transverse lie with the head on the maternal left side. There is demonstrated cardiac activity with a heart rate of 158 bpm. There is a normal amniotic fluid volume. The largest amniotic fluid pocket measures 8.4 cm. The amniotic fluid index (VERONIQUE) is 19.2 cm. The placenta is anterior in location and is not low lying. There are Grade 0 placental changes. The cervix measures 3.4 cm in length. BIOMETRY: BPD: 8.4 cm: 33 weeks, 6 days HC: 31.47 cm: 35 weeks, 2 days AC: 31.7 cm: 35 weeks, 4 days FL: 6.38 cm: 33 weeks, 0 days Age by LMP: 34 weeks, 2 days. SHANE by LMP: 12/21/2021. age by current US: 35 weeks, 0 days. SHANE by current US: 12/16/2021. Estimated weight: 2492 grams, +/- 374 grams, 57 percentile. IMPRESSION: Single live intrauterine gestation with a mean gestational age of 35 weeks. Electronically Signed: Donnell Garber MD at 15:16 EDT , STUDY: OBSTETRICAL ULTRASOUND - BIOPHYSICAL PROFILE REASON FOR EXAM: Female, 36 years old growth -- now and every 4 weeks -- well being LMP: 03/16/2021 PRIOR ULTRASOUND: None. TECHNIQUE: Transabdominal TECHNICAL QUALITY: Adequate. FINDINGS: BIOPHYSICAL PROFILE: Breathing Movements (FBM): 2 Gross Body Movements (GBM): 2 Tone (FT): 2 Amniotic Fluid Volume (AFV): 2 TOTAL SCORE: US/OB Limited With Biometrics IMPRESSION: Normal biophysical profile of 09/20. Electronically Signed: Donnell Garber MD at 15:17 EDT ,
== END | disposition home or self-care (01) ==
LOC: US 13:02
PROVIDERS: PCP Family Medicine; Visit Provider Obstetrics & Gynecology
DX: O09.513 Supervision of elderly primigravida, third trimester (principal); O99.213 Obesity complicating pregnancy, third trimester; Z3A.35 35 weeks gestation of pregnancy
CPT/HCPCS: 76816; 76819

== ENCOUNTER → 2021-11-17 | Outpatient (CLI) | payer MEDICAID, SELFPAY ==
[2021-11-17 11:34] LABS: Color, Urine Yellow (Yellow); Glucose, Dipstick Normal (Normal); Leukocyte Esterase-Dipstick 100 /ul (Negative); Nitrite-Dipstick Negative (Negative); Occult Blood-Urine 10 /ul (Negative); Protein-Dipstick Negative (Negative); Specific Gravity, Urine 1.015 (1.002-1.030); Urine Bilirubin Dipstick Negative (Negative); Urine Urobilinogen Normal (Normal)
[2021-11-17 11:37] LABS: Urine Clarity Clear (Clear)
[2021-11-17 11:40] LABS: Ketone-Dipstick 150 mg/dl (Negative)
[2021-11-17 12:05] LABS: ROM Internal Control Test YES-OK TO RESULT pt. (Internal QC); ROM Patient Test Negative (Negative)
== END | disposition home or self-care (01) ==
LOC: LABSPEC 11:25
PROVIDERS: PCP Family Medicine; Referring Provider Nurse Practitioner Women's Health; Visit Provider Nurse Practitioner Women's Health
DX: O42.90 Premature rupture of membranes, unspecified as to length of time between rupture and onset of labor, unspecified weeks of gestation (principal); O23.40 Unspecified infection of urinary tract in pregnancy, unspecified trimester
CPT/HCPCS: 81002; 84112; 87086; 87088

== ENCOUNTER 2021-11-19 14:16 | Outpatient (CLI) | payer MEDICAID, SELFPAY ==
--- NOTE | 2021-11-19 14:19 | US_ITS ---
STUDY: OBSTETRICAL ULTRASOUND - BIOPHYSICAL PROFILE REASON FOR EXAM: Female, 36 years old WELL BEING LMP: 03/16/2021. PRIOR ULTRASOUND: Comparison is made with prior study 11/11/2021. TECHNIQUE: Transabdominal TECHNICAL QUALITY: Adequate. FINDINGS: There is a single intrauterine fetus. The fetus is in a cephalic presentation. There is demonstrated cardiac activity with a heart rate of 124 bpm. There is a normal amniotic fluid volume. The largest amniotic fluid pocket measures 5.3 cm. The amniotic fluid index (VERONIQUE) is 13.8 cm. The placenta is anterior in location and is not low lying. There are Grade 1 placental changes. Age by LMP: 35 weeks, 3 days. SHANE by LMP: 12/21/2021. BIOPHYSICAL PROFILE: Breathing Movements (FBM): 0 Gross Body Movements (GBM): 2 Tone (FT): 2 Amniotic Fluid Volume (AFV): 2 TOTAL SCORE: 6 / 8 US/Biophysical Prof W/O Non Stres IMPRESSION: biophysical profile of 6/8. The results were communicated to the referring physician. Electronically Signed: Donnell Garber MD at 15:26 EDT ,
[2021-11-19 16:12] VITALS: BP 106/68; PULSE 80
[2021-11-19 16:15] VITALS: BMI 44.1
--- NOTE | 2021-11-19 19:05 | OB.TRI.HP_ITS ---
HPI - General HPI Narrative ELLIOTT FLORES, is a 36 y/o @35 weeks 4 days who presents to L&D for an NST due to 6/8 bpp. The bpp's are being performed for maternal obesity. Maternal Data Information SHANE Calculator Estimated Delivery Date Method Current WG Current Estimate 12/21/21 LMP (Certain) 35w 5d PFSH PFSH Medical History Alcohol use Anemia Anxiety and depression COVID CPAP (continuous positive airway pressure) dependence Easy bruising Fatigue Frequent headaches Gastric reflux Gastrointestinal problem Goiter Jocelyn's disease Hormone deficiency Hx of hypotension Hypothyroidism (acquired) Intradermal nevus of face Intradermal nevus of neck Intradermal nevus of torso Leg cramps Migraine headache Non-smoker Restless legs Seasonal allergies Shortness of breath on exertion Thyroid disease UTI (urinary tract infection) during Home Medications lactobacillus combination no.9 4 billion cell capsule (Adult 50 Plus Probiotic) PO 05/13/21 [History Last Taken Unknown] prenat.vits,kelly,qss-eihr-xgyfj 1 tab PO DAILY 05/13/21 [History Last Taken Unknown] clindamycin phosphate 1 % topical gel 1 applic topical DAILY 07/06/21 [History Last Taken Unknown] nitrofurantoin macrocrystal 100 mg capsule 100 mg PO BID 7 days #14 caps 11/17/21 [Rx Last Taken Unknown] Allergy/AdvReac Type Severity Reaction Status Date / Time latex Allergy Intermediate body rash Verified 11/19/21 16:16 penicillin G Allergy Hives Verified 11/19/21 16:16 shellfish derived Allergy Rash Verified 11/19/21 16:16 sulfamethoxazole Allergy Anaphylaxis Verified 11/19/21 16:16 [From Bactrim] trimethoprim [From Bactrim] Allergy Anaphylaxis Verified 11/19/21 16:16 Family History Other Anemia Anesthesia complication Asthma CVA (cerebral vascular accident) Depression Diabetes Hypertension Thyroid disorder Surgical History Gave to child recently History of excision of lesion History of incision and drainage History of nasal surgery Hx of arthroscopy of right knee Hx of tonsillectomy Social History household members: spouse and children housing: house current occupational status: employed Smoking Status: Never smoker alcohol intake: current details: pre substance use type: does not use caffeine: Yes seatbelt use: always do you feel safe at home: Yes additional social history: Dario- works at a [employer] patient works at a [employer] office History 4 Elective abortions 0 Hx Para 3 Spontaneous abortions 0 Hx # Term Pregnancies 3 Ectopic pregnancies 0 Hx # Pregnancies 0 Multiple births 0 # of living children 3 Past Pregnancies Del. Date Name GA/Weeks Outcome Route Bth Weight Infant Gen Labor Lgth Anesthesia Del Locatn Provider FOB Unknown 2004 Mae 37 live - full term 6lbs 14oz Fe male 11.5 epidural [facility] Dr. Marte Unknown 2007 Sanna 38 live - full term 7lbs 14oz Female 6.5 epidural [facility] Dr. Marte Unknown 2015 True 39 live - full term 8lbs 5oz Female 10 epidural [facility] Se[facility] Delivery Date: Last Updated by: Verena Smiley no complications to note Delivery Date: Last Updated by: Verena Smiley No complications to note Delivery Date: Last Updated by: eVrena Smiley induction at 39w due to maternal herniated abdominal wall, polyhydramios Visit Details Expected Delivery Route/Plan consider IOL 39 weeks AMA Labor Preferences- CB/BF classes: [] labor support person: [] labor intervention preferences: [] pain management options preferred: [] cut cord/dad catch: [] : [] PP control planned: [] discussed possible routes of delivery and associated risks: [] special requests: [] Plans Covid status: discussed Flu vaccine: discussed Tdap vaccine: [] Rhogam: [] LARC form signed: [] Problem list reviewed and updated with the most current plan of care details and appropriate orders placed. Relevant counseling for the gestational age provided. Continue routine care and follow up unless otherwise noted in visit notes/problem list details OB Flowsheet Initial Weight: 226 lb Date -?-?-?-?-?-?-?-?-?-?-?-?- EGA Weight BP Urine Prot -?-?-?-?-?-?-?-?-?-?-?-?- Glucose FHR FuHt Pres Dilation -?-?-?-?-?-?-?-?-?-?-?-?- Effaced St Visit Note 05/13/21 -?-?-?-?-?-?-?-?-?-?-?-?- 8w 2d 226 lb (+0 oz) 130/80 -?-?-?-?-?-?-?-?-?-?-?-?- 160 -?-?-?-?-?--?-?-?-?-?-?-?- SM- CRL cons wit h LMP 06/07/21 -?-?-?-?-?-?-?-?-?-?-?-?- 11w 6d 228 lb (+2 lb) 122/82 -?-?-?-?-?-?-?-?-?-?-?-?- 145 -?-?-?-?-?-?-?-?-?-?-?-?- SM- no vb crampi ng 07/06/21 -?-?-?-?-?-?-?-?-?-?-?-?- 16w 0d 236 lb (+10 lb) 112/68 Trace -?-?-?-?-?-?-?-?-?-?-?-?- Negative 147 -?-?-?-?-?-?-?-?-?-?-?-?- MH-NO VB, LOF. F eeling some flutters. Enc Fe for anemia. anatomy US 08/0508/05/21 -?-?-?-?-?-?-?-?-?-?-?-?- 20w 2d 241 lb (+15 lb) 132/86 -?-?-?-?-?-?-?-?-?-?-?-?- 150 -?-?-?-?-?-?-?-?-?-?-?-?- SM- no vb lof go od fm no reuglar ctx 09/03/21 -?-?-?-?-?-?-?-?-?-?-?-?- 24w 3d 249 lb 2 oz (+23 lb 2 oz) 118/80 Negative -?-?-?-?-?-?-?-?-?-?-?-?- Negative 140 24 -?-?-?-?-?-?-?-?-?-?-?-?- SM- no vb lof go od fm no regular ctx lost grandmother yesterday, coping appropriately 09/21/21 -?-?-?-?-?-?-?-?-?-?-?-?- 27w 0d 252 lb 4 oz (+26 lb 4 oz) 110/64 Negative -?-?-?-?-?-?-?-?-?-?-?-?- Negative 161 -?-?-?-?-?-?-?-?-?-?-?-?- -Spouse fell o n her abdomen while trying to get up. Happened yesterday but sore at area. No bleeding. Good FM. Needs rhogam and will do 28 wk labs today also. 10/15/21 -?-?-?-?-?-?-?-?-?-?-?-?- 30w 3d 255 lb (+29 lb) 120/68 -?-?-?-?-?-?-?-?-?-?-?-?- 150 32 34 -?-?-?-?-?-?-?-?-?-?-?-?- JV- no lof, vagi nal bleeding, or dec fm. HC measured today with bedside ultrasound and found to be 30 weeks 2 days. could not adequately measure AC. will ge a 36 weeks growth scan due to obesity and start weekly nsts at 36 weeks. 10/26/21 -?-?-?-?-?-?-?-?-?-?-?-?- 32w 0d 256 lb 4 oz (+30 lb 4 oz) 110/70 Negative -?-?-?-?-?-?-?-?-?-?-?-?- Negative 150 34 -?-?-?-?-?-?-?-?-?-?-?-?- SM- no vb lof go od fm no regular ctx 11/09/21 -?-?-?-?-?-?-?-?-?-?-?-?- 34w 0d 258 lb (+32 lb) 114/76 -?-?-?-?-?-?-?-?-?-?-?-?- 130 36 -?-?-?-?-?-?-?-?-?-?-?-?- SM- no vb lof go od fm no regular ctx 11/17/21 -?-?-?-?-?-?-?-?-?-?-?-?- 35w 1d 258 lb 2 oz (+32 lb 2 oz) 110/75 -?-?-?-?-?-?-?-?-?-?-?-?- Negative 143 Transverse -?-?-?-?-?-?-?-?-?-?-?-?- 0 MH-work in for leaking fluid, low back pain. Good FM. Urine culture and ROM pending. ROS Constitutional Constitutional: Reports systems reviewed and no addt'l complaints, except as documented Gastrointestinal Gastrointestinal: Denies bloating, constipation, cramping, diarrhea, nausea or vomiting Genitourinary Genitourinary: Reports other Details: Denies vaginal odor, vaginal bleeding, or vaginal discharge ; Denies difficulty urinating or flank pain NST FHR Rate Baby A Baseline: 150 with change down to 130's Variability:: Moderate Accelerations:: 15 x 15 Decelerations:: None NST Reactive:: Yes FHR Category:: Category I Assessment & Plan (1) Abnormal glucose in , antepartum: COMMENT: Pt passed 3 HR GTT. (2) UTI (urinary tract infection) during : COMMENT: treated with macrobid (3) Rh negative status during : QUALIFIERS: Trimester: second trimester Qualified Code(s): O26.892 - Other specified related conditions, second trimester; Z67.91 - Unspecified blood type, Rh negative COMMENT: rhogam at 28 weeks and PRN (4) Anxiety and depression: COMMENT: well controlled, encouraged counseling, not currently on medication (5) Anemia in preg-unspec: QUALIFIERS: Trimester: second trimester Qualified Code(s): O99.012 - Anemia complicating , second trimester COMMENT: add Fe. repeat nl cbc (6) Jocelyn's disease: COMMENT: labs UP TO DATE done eveyr trimester. nl baseline TSH, Free t4, TPO ab qtrimester (not currently taking her thyroid medication), s/p endo referral. Labs normal on 09/21. (7) Obesity affecting : QUALIFIERS: Trimester: second trimester Qualified Code(s): O99.212 - Obesity complicating , second trimester COMMENT: AMA and BMI 44, weekly BPP after 34 and growth US q 4 weeks. encourage healthy weight gain and diet (8) : QUALIFIERS: Weeks of gestation: 35 weeks Qualified Code(s): Z3A.35 - 35 weeks gestation of COMMENT: NIPT low risk, carrier neg. afp declined. Anatomy US normal, 11/11/21 growth adequate, baby transverse (9) Supervision of high risk , unspecified, first trimester: COMMENT: PRR SHANE: 12/21/21 girl Abdelrahman PC: Sanna Wall Fallyn Boyfriend: Dario (first child) PLAN: Plan nst reactive- bpp now 09/22 ok for dc to home with follow up monday am. Charges/Coding Multi Select Codes Urinary/Genital Urinary/Genital CPT Codes: 08408-83 non-stress test Interp
== END 2021-11-19 16:50 | disposition home or self-care (01) ==
LOC: OPUS 14:16 → WPOUT 16:01 → WP 16:01
PROVIDERS: PCP Family Medicine; Visit Provider Obstetrics & Gynecology
DX: O99.810 Abnormal glucose complicating pregnancy (principal); O23.43 Unspecified infection of urinary tract in pregnancy, third trimester; O26.893 Other specified pregnancy related conditions, third trimester; O99.343 Other mental disorders complicating pregnancy, third trimester; O99.283 Endocrine, nutritional and metabolic diseases complicating pregnancy, third trimester; O99.213 Obesity complicating pregnancy, third trimester; O09.523 Supervision of elderly multigravida, third trimester; O99.013 Anemia complicating pregnancy, third trimester; F41.9 Anxiety disorder, unspecified; F32.A Depression, unspecified; E06.3 Autoimmune thyroiditis; Z86.16 Personal history of COVID-19; Z3A.35 35 weeks gestation of pregnancy; Z67.91 Unspecified blood type, Rh negative
CPT/HCPCS: 59050; 76819; 99218; G0378

== ENCOUNTER 2021-11-23 13:35 | Outpatient (CLI) | payer MEDICAID, SELFPAY ==
[2021-11-23 13:41] VITALS: BMI 44.1
[2021-11-23 13:57] VITALS: TEMP 36.2; O2SAT 99
[2021-11-23 14:06] VITALS: BP 117/63; PULSE 79
[2021-11-23 14:44] LABS: ROM Internal Control Test YES-OK TO RESULT pt. (Internal QC); ROM Patient Test Negative (Negative)
[2021-11-23] MEDS: Lactated Ringers 1,000 ML 999 ML IV (15:00)
--- NOTE | 2021-11-23 15:08 | OB.TRI.NOTE ---
HPI - General HPI Narrative ELLIOTT FLORES, is a 36 y/o @ 36 weeks who presents to L&D with leaking fluid and decreased movement. Maternal Data Information SHANE Calculator Estimated Delivery Date Method Current WG Current Estimate 12/21/21 LMP (Certain) 36w 1d PFSH PFSH Medical History (Updated 11/24/21 @ 15:[address] Adrianne Ingram, DO) Alcohol use Anemia Anxiety and depression COVID CPAP (continuous positive airway pressure) dependence Easy bruising Fatigue Frequent headaches Gastric reflux Gastrointestinal problem Goiter Jocelyn's disease Hormone deficiency Hx of hypotension Hypothyroidism (acquired) Intradermal nevus of face Intradermal nevus of neck Intradermal nevus of torso Leg cramps Migraine headache Non-smoker Restless legs Seasonal allergies Shortness of breath on exertion Thyroid disease UTI (urinary tract infection) during Home Medications lactobacillus combination no.9 4 billion cell capsule (Adult 50 Plus Probiotic) PO gut health 05/13/21 [History Last Taken Unknown] prenat.vits,kelly,gfg-nmce-peflt 1 tab PO DAILY 05/13/21 [History Last Taken Unknown] clindamycin phosphate 1 % topical gel 1 applic topical DAILY acne 07/06/21 [History Last Taken Unknown] loratadine 10 mg tablet (Claritin) 10 mg PO PRN PRN seasonal allergues 11/23/21 [History Last Taken Unknown] nitrofurantoin macrocrystal 100 mg capsule 100 mg PO BID suspected uti 11/23/21 [History Last Taken Unknown] pediatric multivitamin no.76 (Flintstones Complete chewable tablet) tab PO anemia 11/23/21 [History Last Taken 11/22/21 21:00] Allergy/AdvReac Type Severity Reaction Status Date / Time latex Allergy Intermediate body rash Verified 11/23/21 13:44 penicillin G Allergy Hives Verified 11/23/21 13:44 shellfish derived Allergy Rash Verified 11/23/21 13:44 sulfamethoxazole Allergy Anaphylaxis Verified 11/23/21 13:44 [From Bactrim] trimethoprim [From Bactrim] Allergy Anaphylaxis Verified 11/23/21 13:44 Family History Other Anemia Anesthesia complication Asthma CVA (cerebral vascular accident) Depression Diabetes Hypertension Thyroid disorder Surgical History Gave to child recently History of excision of lesion History of incision and drainage History of nasal surgery Hx of arthroscopy of right knee Hx of tonsillectomy Social History household members: spouse and children housing: house current occupational status: employed Smoking Status: Never smoker alcohol intake: current details: pre substance use type: does not use caffeine: Yes seatbelt use: always do you feel safe at home: Yes additional social history: 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 Date Name GA/Weeks Outcome Route Bth Weight Infant Gen Labor Lgth Anesthesia Del Locatn Provider FOB Unknown 2004 Mae 37 live - full term 6lbs 14oz Female 11.5 epidural [facility] Dr. Marte Unknown 2007 Sanna 38 live - full term 7lbs 14oz Female 6.5 epidural [facility] [address]. Marte Unknown 2015 [place] 39 live - full term 8lbs 5oz Female 10 epidural [facility] Seals Delivery Date: Last Updated by: Verena Smiley no complications to note Delivery Date: Last Updated by: Verena Smiley No complications to note Delivery Date: Last Updated by: Verena Smiley induction at 39w due to maternal herniated abdominal wall, polyhydramios Visit Details Expected Delivery Route/Plan consider IOL 39 weeks AMA Labor Preferences- CB/BF classes: [] labor support person: [] labor intervention preferences: [] pain management options preferred: [] cut cord/dad catch: [] : [] PP control planned: [] discussed possible routes of delivery and associated risks: [] special requests: [] Plans Covid status: discussed Flu vaccine: discussed Tdap vaccine: [] Rhogam: [] LARC form signed: [] Problem list reviewed and updated with the most current plan of care details and appropriate orders placed. Relevant counseling for the gestational age provided. Continue routine care and follow up unless otherwise noted in visit notes/problem list details OB Flowsheet Initial Weight: 226 lb Date <del>?</del> EGA Weight BP Urine Prot <del>?</del> Glucose FHR FuHt Pres Dilation <del>?</del> Effaced St Visit Note 05/13/21 <del>?</del> 8w 2d 226 lb (+0 oz) 130/80 <del>?</del> 160 <del>?</del> SM- CRL cons with LMP 06/07/21 <del>?</del> 11w 6d 228 lb (+2 lb) 122/82 <del>?</del> 145 <del>?</del> SM- no vb cramping 07/06/21 <del>?</del> 16w 0d 236 lb (+10 lb) 112/68 Trace <del>?</del> Negative 147 <del>?</del> MH-NO VB, LOF. Feeling some flutters. Enc Fe for anemia. anatomy US 08/0508/05/21 <del>?</del> 20w 2d 241 lb (+15 lb) 132/86 <del>?</del> 150 <del>?</del> SM- no vb lof good fm no reuglar ctx 09/03/21 <del>?</del> 24w 3d 249 lb 2 oz (+23 lb 2 oz) 118/80 Negative <del>?</del> Negative 140 24 <del>?</del> SM- no vb lof good fm no regular ctx lost grandmother yesterday, coping appropriately 09/21/21 <del>?</del> 27w 0d 252 lb 4 oz (+26 lb 4 oz) 110/64 Negative <del>?</del> Negative 161 <del>?</del> MH-Spouse fell on her abdomen while trying to get up. Happened yesterday but sore at area. No bleeding. Good FM. Needs rhogam and will do 28 wk labs today also. 10/15/21 <del>?</del> 30w 3d 255 lb (+29 lb) 120/68 <del>?</del> 150 32 34 <del>?</del> JV- no lof, vaginal bleeding, or dec fm. HC measured today with bedside ultrasound and found to be 30 weeks 2 days. could not adequately measure AC. will ge a 36 weeks growth scan due to obesity and start weekly nsts at 36 weeks. 10/26/21 <del>?</del> 32w 0d 256 lb 4 oz (+30 lb 4 oz) 110/70 Negative <del>?</del> Negative 150 34 <del>?</del> SM- no vb lof good fm no regular ctx 11/09/21 <del>?</del> 34w 0d 258 lb (+32 lb) 114/76 <del>?</del> 130 36 <del>?</del> SM- no vb lof good fm no regular ctx 11/17/21 <del>?</del> 35w 1d 258 lb 2 oz (+32 lb 2 oz) 110/75 <del>?</del> Negative 143 Transverse <del>?</del> 0 MH-work in for leaking fluid, low back pain. Good FM. Urine culture and ROM pending. ROS Constitutional Constitutional: Reports systems reviewed and no addt'l complaints, except as documented Gastrointestinal Gastrointestinal: Denies bloating, constipation, cramping, diarrhea, nausea or vomiting Genitourinary Genitourinary: Reports other Details: Denies vaginal odor, vaginal bleeding, or vaginal discharge ; Denies difficulty urinating or flank pain NST FHR Rate Baby A Baseline: 140's-150's Variability:: Moderate Accelerations:: 15 x 15 Decelerations:: None NST Reactive:: Yes FHR Category:: Category I Assessment & Plan (1) Vaginal discharge during : COMMENT: urine culture and ROM pending (2) Abnormal glucose in , antepartum: COMMENT: Pt passed 3 HR GTT. (3) UTI (urinary tract infection) during : COMMENT: treated with macrobid; Repeat culture negative (4) Anemia in preg-unspec: QUALIFIERS: Trimester: second trimester Qualified Code(s): O99.012 - Anemia complicating , second trimester COMMENT: add Fe. repeat nl cbc (5) Rh negative status during : QUALIFIERS: Trimester: second trimester Qualified Code(s): O26.892 - Other specified related conditions, second trimester; Z67.91 - Unspecified blood type, Rh negative COMMENT: rhogam at 28 weeks and PRN (6) Anxiety and depression: COMMENT: well controlled, encouraged counseling, not currently on medication (7) Jocelyn's disease: COMMENT: labs UP TO DATE done eveyr trimester. nl baseline TSH, Free t4, TPO ab qtrimester (not currently taking her thyroid medication), s/p endo referral. Labs normal on 09/21. (8) Advanced maternal age (AMA) in : COMMENT: low risk NIPT. testing see obesity a/p. (9) Obesity affecting : QUALIFIERS: Trimester: second trimester Qualified Code(s): O99.212 - Obesity complicating , second trimester COMMENT: AMA and BMI 44, weekly BPP after 34 and growth US q 4 weeks. encourage healthy weight gain and diet (10) : QUALIFIERS: Weeks of gestation: 35 weeks Qualified Code(s): Z3A.35 - 35 weeks gestation of COMMENT: GBS Negative, NIPT low risk, carrier neg. afp declined. Anatomy US normal, 11/11/21 growth adequate, baby transverse (11) Supervision of high risk , unspecified, first trimester: COMMENT: PRR SHANE: 12/21/21 girl [place] PC: Sanna Wall Fallyn Boyfriend: Dario (first child) (12) False labor: COMMENT: rom + neg and NST reactive in triage on 11/23/21 Charges/Coding Multi Select Codes Visit Charges Office Visit/Consults: 79660 OV L3 Est Urinary/Genital Urinary/Genital CPT Codes: 56320-38 non-stress test Interp
[2021-11-23 15:47] LABS: Group B Strep DNA By PCR Negative (Negative); Internal Control PASS; Probe Check PASS; Specimen Processing Control PASS
--- NOTE | 2021-11-24 15:08 | OB.TRI.HP_ITS ---
HPI - General HPI Narrative ELLIOTT FLORES, is a 36 y/o @ 36 weeks who presents to L&D with leaking fluid and decreased movement. Maternal Data Information SHANE Calculator Estimated Delivery Date Method Current WG Current Estimate 12/21/21 LMP (Certain) 36w 1d PFSH PFS Medical History (Updated 11/24/21 @ 15:[address] Adrianne Ingram, DO) Alcohol use Anemia Anxiety and depression COVID CPAP (continuous positive airway pressure) dependence Easy bruising Fatigue Frequent headaches Gastric reflux Gastrointestinal problem Goiter Jocelyn's disease Hormone deficiency Hx of hypotension Hypothyroidism (acquired) Intradermal nevus of face Intradermal nevus of neck Intradermal nevus of torso Leg cramps Migraine headache Non-smoker Restless legs Seasonal allergies Shortness of breath on exertion Thyroid disease UTI (urinary tract infection) during Home Medications lactobacillus combination no.9 4 billion cell capsule (Adult 50 Plus Probiotic) PO gut health 05/13/21 [History Last Taken Unknown] prenat.vits,kelly,xmv-ytnv-wekit 1 tab PO DAILY 05/13/21 [History Last T aken Unknown] clindamycin phosphate 1 % topical gel 1 applic topical DAILY acne 07/06/21 [History Last Taken Unknown] loratadine 10 mg tablet (Claritin) 10 mg PO PRN PRN seasonal allergues 11/23/21 [History Last Taken Unknown] nitrofurantoin macrocrystal 100 mg capsule 100 mg PO BID suspected uti 11/23/21 [History Last Taken Unknown] pediatric multivitamin no.76 (Flintstones Complete chewable tablet) tab PO anemia 11/23/21 [History Last Taken 11/22/21 21:00] Allergy/AdvReac Type Severity Reaction Status Date / Time latex Allergy Intermediate body rash Verified 11/23/21 13:44 penicillin G Allergy Hives Verified 11/23/21 13:44 shellfish derived Allergy Rash Verified 11/23/21 13:44 sulfamethoxazole Allergy Anaphylaxis Verified 11/23/21 13:44 [From Bactrim] trimethoprim [From Bactrim] Allergy Anaphylaxis Verified 11/23/21 13:44 Family History Other Anemia Anesthesia complication Asthma CVA (cerebral vascular accident) Depression Diabetes Hypertension Thyroid disorder Surgical History Gave to child recently History of excision of lesion History of incision and drainage History of nasal surgery Hx of arthroscopy of right knee Hx of tonsillectomy Social History household members: spouse and children housing: house current occupational status: employed Smoking Status: Never smoker alcohol intake: current details: pre substance use type: does not use caffeine: Yes seatbelt use: always do you feel safe at home: Yes additional social history: 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 Date Name GA/Weeks Outcome Route Bth Weight Gen Labor Lgth Anes t hesia Del Locatn Provider FOB Unknown 2004 Mae 37 live - full term 6lbs 14oz Fe male 11.5 epidural [facility] Dr. Marte Unknown 2007 Sanna 38 live - full term 7lbs 14oz Female 6.5 epidural [facility] Dr. Marte Unknown 2015 Fallyn 39 live - full term 8lbs 5oz Female 10 epidural [facility] Delivery Date: Last Updated by: Verena Smiley no complications to note Delivery Date: Last Updated by: Verena Smiley No complications to note Delivery Date: Last Updated by: Verena Smiley induction at 39w due to maternal herniated abdominal wall, polyhydramios Visit Details Expected Delivery Route/Plan consider IOL 39 weeks AMA Labor Preferences- CB/BF classes: [] labor support person: [] labor intervention preferences: [] pain management options preferred: [] cut cord/dad catch: [] : [] PP control planned: [] discussed possible routes of delivery and associated risks: [] special requests: [] Plans Covid status: discussed Flu vaccine: discussed Tdap vaccine: [] Rhogam: [] LARC form signed: [] Problem list reviewed and updated with the most current plan of care details and appropriate orders placed. Relevant counseling for the gestational age provided. Continue routine care and follow up unless otherwise noted in visit notes/problem list details OB Flowsheet Initial Weight: 226 lb Date -?-?-?-?-?-?-?-?-?-?-?-?- EGA Weight BP Urine Prot -?-?-?-?-?-?-?-?-?-?-?-?- Glucose FHR FuHt Pres Dilation -?-?-?-?-?-?-?-?-?-?-?-?- Effaced St Visit Note 05/13/21 -?-?-?-?-?-?-?-?-?-?-?-?- 8w 2d 226 lb (+0 oz) 130/80 -?-?-?-?-?-?-?-?-?-?-?-?- 160 -?-?-?-?-?-?-?-?-?-?-?-?- SM- CRL cons wit h LMP 06/07/21 -?-?-?-?-?-?-?-?-?-?-?-?- 11w 6d 228 lb (+2 lb) 122/82 -?-?-?-?-?-?-?-?-?-?-?-?- 145 -?-?-?-?-?-?-?-?-?-?-?-?- SM- no vb crampi 07/06/21 -?-?-?-?-?-?-?-?-?-?-?-?- 16w 0d 236 lb (+10 lb) 112/68 Trace -?-?-?-?-?-?-?-?-?-?-?-?- Negative 147 -?-?-?-?-?-?-?-?-?-?-?-?- MH-NO VB, LOF. F eeling some flutters. Enc Fe for anemia. anatomy US 08/0508/05/21 -?-?-?-?-?-?-?-?-?-?-?-?- 20w 2d 241 lb (+15 lb) 132/86 -?-?-?-?-?-?-?-?-?-?-?-?- 150 -?-?-?-?-?-?-?-?-?-?-?-?- SM- no vb lof go od fm no reuglar ctx 09/03/21 -?-?-?-?-?-?-?-?-?-?-?-?- 24w 3d 249 lb 2 oz (+23 lb 2 oz) 118/80 Negative -?-?-?-?-?-?-?-?-?-?-?-?- Negative 140 24 -?-?-?-?-?-?-?-?-?-?-?-?- SM- no vb lof go od fm no regular ctx lost grandmother yesterday, coping appropriately 09/21/21 -?-?-?-?-?-?-?-?-?-?-?-?- 27w 0d 252 lb 4 oz (+26 lb 4 oz) 110/64 Negative -?-?-?-?-?-?-?-?-?-?-?--?- Negative 161 -?-?-?-?-?-?-?-?-?-?-?-?- MH-Spouse fell o n her abdomen while trying to get up. Happened yesterday but sore at area. No bleeding. Good FM. Needs rhogam and will do 28 wk labs today also. 10/15/21 -?-?-?-?-?-?-?-?-?-?-?-?- 30w 3d 255 lb (+29 lb) 120/68 -?-?-?-?-?-?-?-?-?-?-?-?- 150 32 34 -?-?-?-?-?-?-?-?-?-?-?-?- JV- no lof, vagi nal bleeding, or dec fm. HC measured today with bedside ultrasound and found to be 30 weeks 2 days. could not adequately measure AC. will ge a 36 weeks growth scan due to obesity and start weekly nsts at 36 weeks. 10/26/21 -?-?-?-?-?-?-?-?-?-?-?-?- 32w 0d 256 lb 4 oz (+30 lb 4 oz) 110/70 Negative -?-?-?-?-?-?-?-?-?-?-?-?- Negative 150 34 -?-?-?-?-?-?-?-?-?-?-?-?- SM- no vb lof go od fm no regular ctx 11/09/21 -?-?-?-?-?-?-?-?-?-?-?-?- 34w 0d 258 lb (+32 lb) 114/76 -?-?-?-?-?-?-?-?-?-?-?-?- 130 36 -?-?-?-?-?-?-?-?--?-?-?-?- SM- no vb lof go od fm no regular ctx 11/17/21 -?-?-?-?-?-?-?-?-?-?-?-?- 35w 1d 258 lb 2 oz (+32 lb 2 oz) 110/75 -?-?-?-?-?-?-?-?-?-?-?-?- Negative 143 Transverse -?-?-?-?-?-?-?-?-?-?-?-?- 0 MH-work in for leaking fluid, low back pain. Good FM. Urine culture and ROM pending. ROS Constitutional Constitutional: Reports systems reviewed and no addt'l complaints, except as documented Gastrointestinal Gastrointestinal: Denies bloating, constipation, cramping, diarrhea, nausea or vomiting Genitourinary Genitourinary: Reports other Details: Denies vaginal odor, vaginal bleeding, or vaginal discharge ; Denies difficulty urinating or flank pain NST FHR Rate Baby A Baseline: 140's-150's Variability:: Moderate Accelerations:: 15 x 15 Decelerations:: None NST Reactive:: Yes FHR Category:: Category I Assessment & Plan (1) Vaginal discharge during : COMMENT: urine culture and ROM pending (2) Abnormal glucose in , antepartum: COMMENT: Pt passed 3 HR GTT. (3) UTI (urinary tract infection) during : COMMENT: treated with macrobid; Repeat culture negative (4) Anemia in preg-unspec: QUALIFIERS: Trimester: second trimester Qualified Code(s): O99.012 - Anemia complicating , second trimester COMMENT: add Fe. repeat nl cbc (5) Rh negative status during : QUALIFIERS: Trimester: second trimester Qualified Code(s): O26.892 - Other specified related conditions, second trimester; Z67.91 - Unspecified blood type, Rh negative COMMENT: rhogam at 28 weeks and PRN (6) Anxiety and depression: COMMENT: well controlled, encouraged counseling, not currently on medication (7) Jocelyn's disease: COMMENT: labs UP TO DATE done eveyr trimester. nl baseline TSH, Free t4, TPO ab qtrimester (not currently taking her thyroid medication), s/p endo referral. Labs normal on 09/21. (8) Advanced maternal age (AMA) in : COMMENT: low risk NIPT. testing see obesity a/p. (9) Obesity affecting : QUALIFIERS: Trimester: second trimester Qualified Code(s): O99.212 - Obesity complicating , second trimester COMMENT: AMA and BMI 44, weekly BPP after 34 and growth US q 4 weeks. encourage healthy weight gain and diet (10) : QUALIFIERS: Weeks of gestation: 35 weeks Qualified Code(s): Z3A.35 - 35 weeks gestation of COMMENT: GBS Negative, NIPT low risk, carrier neg. afp declined. Anatomy US normal, 11/11/21 growth adequate, baby transverse (11) Supervision of high risk , unspecified, first trimester: COMMENT: PRR SHANE: 12/21/21 girl [place] PC: Sanna Wall Fallyn Boyfriend: Dario (first child) (12) False labor: COMMENT: rom + neg and NST reactive in triage on 11/23/21 Charges/Coding Multi Select Codes Visit Charges Office Visit/Consults: 43447 OV L3 Est Urinary/Genital Urinary/Genital CPT Codes: 38143-92 non-stress test Interp
== END 2021-11-23 16:46 | disposition home or self-care (01) ==
LOC: WPOUT 13:40 → WP 13:40
PROVIDERS: Obstetrics & Gynecology; PCP Family Medicine; Visit Provider Registered Nurse
DX: O47.03 False labor before 37 completed weeks of gestation, third trimester (principal); O99.891 Other specified diseases and conditions complicating pregnancy; O99.343 Other mental disorders complicating pregnancy, third trimester; M54.50 Low back pain, unspecified; O99.810 Abnormal glucose complicating pregnancy; E06.3 Autoimmune thyroiditis; O99.013 Anemia complicating pregnancy, third trimester; O09.523 Supervision of elderly multigravida, third trimester; F32.A Depression, unspecified; F41.9 Anxiety disorder, unspecified; O99.283 Endocrine, nutritional and metabolic diseases complicating pregnancy, third trimester; Z79.2 Long term (current) use of antibiotics; Z3A.35 35 weeks gestation of pregnancy
CPT/HCPCS: 96360; 59025; 59050; 84112; 87081; 87653; 99218; J7120; G0378

== ENCOUNTER → 2021-11-26 | Outpatient (CLI) | payer MEDICAID, SELFPAY ==
--- NOTE | 2021-11-26 14:32 | US_ITS ---
STUDY: OBSTETRICAL ULTRASOUND - BIOPHYSICAL PROFILE REASON FOR EXAM: Female, 36 years old WELL BEING LMP: 03/16/2021. PRIOR ULTRASOUND: Comparison is made with prior study dated 11/19/2021. TECHNIQUE: Transabdominal TECHNICAL QUALITY: Adequate. FINDINGS: There is a single intrauterine fetus. The fetus is in a cephalic presentation. There is demonstrated cardiac activity with a heart rate of 150 bpm. There is a normal amniotic fluid volume. The largest amniotic fluid pocket measures 5.0 cm. The amniotic fluid index (VERONIQUE) is 15.8 cm. The placenta is anterior in location and is not low lying. There are Grade 1 placental changes. Age by LMP: 36 weeks, 3 days. SHANE by LMP: 12/21/2021. BIOPHYSICAL PROFILE: Breathing Movements (FBM): 2 Gross Body Movements (GBM): 2 Tone (FT): 2 Amniotic Fluid Volume (AFV): 2 TOTAL SCORE: US/Biophysical Prof W/O Non Stres IMPRESSION: Normal biophysical profile of 09/20. Electronically Signed: Donnell Garber MD at 9:20 EDT ,
== END | disposition home or self-care (01) ==
LOC: OPUS 14:27
PROVIDERS: PCP Family Medicine; Referring Provider Obstetrics & Gynecology; Visit Provider Obstetrics & Gynecology
DX: O99.212 Obesity complicating pregnancy, second trimester (principal)
CPT/HCPCS: 76819

== ENCOUNTER → 2021-12-03 | Outpatient (CLI) | payer MEDICAID, SELFPAY ==
--- NOTE | 2021-12-03 14:23 | US_ITS ---
STUDY: OBSTETRICAL ULTRASOUND - BIOPHYSICAL PROFILE REASON FOR EXAM: Female, 36 years old WELL BEING LMP: 03/16/2021 PRIOR ULTRASOUND: 11/26/2021 TECHNIQUE: Transabdominal TECHNICAL QUALITY: Adequate. FINDINGS: There is a single intrauterine fetus. The fetus is in a cephalic presentation. There is demonstrated cardiac activity with a heart rate of 145 bpm. There is a normal amniotic fluid volume. The largest amniotic fluid pocket measures 5.9 cm. The amniotic fluid index (VERONIQUE) is 14.2 cm. The placenta is anterior in location and is not low lying. There are Grade 1 placental changes. Age by LMP: 37 weeks, 3 days. SHANE by LMP: 12/21/2021. BIOPHYSICAL PROFILE: Breathing Movements (FBM): 2 Gross Body Movements (GBM): 2 Tone (FT): 2 Amniotic Fluid Volume (AFV): 2 TOTAL SCORE: 8 / 8 US/Biophysical Prof W/O Non Stres IMPRESSION: Normal biophysical profile of 88. Electronically Signed: Willy De Jesus MD at 14:59 EDT ,
== END | disposition home or self-care (01) ==
LOC: OPUS 14:22
PROVIDERS: PCP Family Medicine; Visit Provider Obstetrics & Gynecology
DX: Z34.93 Encounter for supervision of normal pregnancy, unspecified, third trimester (principal); Z3A.36 36 weeks gestation of pregnancy
CPT/HCPCS: 76819

== ENCOUNTER 2021-12-08 14:30 | Outpatient (CLI) | payer MEDICAID, SELFPAY ==
[2021-12-08 14:38] VITALS: BMI 44.2
[2021-12-08 14:48] VITALS: BP 129/60; PULSE 89
[2021-12-08 15:04] VITALS: BP 125/61; PULSE 82
[2021-12-08 15:04] LABS: Bacteria 0 SEEN /hpf (None Seen); Mucous, Urine 0 SEEN /hpf (<or=2+)
[2021-12-08 15:05] VITALS: TEMP 37.2
[2021-12-08 15:12] LABS: Hematocrit 35.4 % (37-47); Hemoglobin 11.1 g/dL (12.0-15.0); Mean Corp Hgb Conc 31.4 g/dL (32-36); Mean Corpuscular Hgb 25.9 pg (27.0-32.0); Mean Corpuscular Volume 82.7 fL (81-99); Mean Platelet Vol. 10.8 fl (6.2-12.0); Platelet Count 270 K/mm3 (150-450); RBC Distribution Width CV 14.6 % (11.6-14.6); RBC Distribution Width SD 43.3 fl (35.1-43.9); Red Blood Count 4.28 M/mm3 (4.2-5.4); White Blood Count 12.2 K/mm3 (4.4-11.0)
[2021-12-08 15:14] LABS: Color, Urine Yellow (Yellow); Glucose, Dipstick Normal (Normal); Ketone-Dipstick Negative (Negative); Leukocyte Esterase-Dipstick 500 /ul (Negative); Nitrite-Dipstick Positive (Negative); Occult Blood-Urine 10 /ul (Negative); Protein-Dipstick 15 mg/dl (Negative); Urine Bilirubin Dipstick Negative (Negative); Urine Clarity Sl. Cloudy (Clear); Urine Urobilinogen Normal (Normal)
[2021-12-08 15:18] LABS: Protein, Urine (Random) < 6.0 mg/dL (<11.9); Protein:Creat Ratio 145 mg/g CRE (0-200)
[2021-12-08 15:20] VITALS: BP 124/69; PULSE 78
[2021-12-08 15:22] LABS: Red Blood Cells-Urine 10-25 SEEN /hpf (0-5); Squamous Epithelial Cells - UA 0-5 SEEN /hpf (5-10); White Blood Cells 25-50 SEEN /hpf (0-5)
[2021-12-08 15:25] LABS: AST(SGOT) 10 U/L (15-37); Alanine Aminotransfer ALT/SGPT 11 U/L (13-56); Creatinine, Serum 0.46 mg/dL (0.55-1.02); EST Glomerular Filtration Rate 161 mL/min (>60); Est Glom Filt Rate - Afr Amer 195 mL/min (>60)
[2021-12-08 15:30] LABS: ROM Internal Control Test YES-OK TO RESULT pt. (Internal QC); ROM Patient Test Negative (Negative)
[2021-12-08 15:34] VITALS: BP 121/66; PULSE 82
[2021-12-08 15:49] VITALS: BP 123/69; PULSE 92
--- NOTE | 2021-12-08 20:49 | OB.TRI.NOTE ---
HPI - General General Date of Admission: 12/08/21 HPI Narrative ELLIOTT FLORES, is a 36 F G4, P3 at 38+1 who presents at labor and delivery for elevated blood pressures, loose stool/vomiting Maternal Data Information SHANE Calculator Estimated Delivery Date Method Current WG Current Estimate 12/21/21 LMP (Certain) 38w 1d Other Estimates 12/21/21 Ultrasound #1 38w 1d PFSH PFSH Medical History Alcohol use Anemia Anxiety and depression COVID CPAP (continuous positive airway pressure) dependence Easy bruising Fatigue Frequent headaches Gastric reflux Gastrointestinal problem Goiter Jocelyn's disease Hormone deficiency Hx of hypotension Hypothyroidism (acquired) Intradermal nevus of face Intradermal nevus of neck Intradermal nevus of torso Leg cramps Migraine headache Non-smoker Restless legs Seasonal allergies Shortness of breath on exertion Thyroid disease UTI (urinary tract infection) during Home Medications lactobacillus combination no.9 4 billion cell capsule (Adult 50 Plus Probiotic) PO [facility] 05/13/21 [History Last Taken Unknown] prenat.vits,kelly,[id number]-[id number]-pgdkk 1 tab PO DAILY 05/13/21 [History Last Taken Unknown] clindamycin phosphate 1 % topical gel 1 applic topical DAILY acne 07/06/21 [History Last Taken Unknown] loratadine 10 mg tablet (Claritin) 10 mg PO PRN PRN seasonal allergues 11/23/21 [History Last Taken Unknown] nitrofurantoin monohydrate/macrocrystals 100 mg capsule (Macrobid) 100 mg PO BID 7 days #14 caps 12/08/21 [Rx Last Taken Unknown] Allergy/AdvReac Type Severity Reaction Status Date / Time latex Allergy Intermediate body rash Verified 12/08/21 15:04 penicillin G Allergy Hives Verified 12/08/21 15:04 shellfish derived Allergy Rash Verified 12/08/21 15:04 sulfamethoxazole Allergy Anaphylaxis Verified 12/08/21 15:04 [From Bactrim] trimethoprim [From Bactrim] Allergy Anaphylaxis Verified 12/08/21 15:04 Family History Other Anemia Anesthesia complication Asthma CVA (cerebral vascular accident) Depression Diabetes Hypertension Thyroid disorder Surgical History Gave to child recently History of excision of lesion History of incision and drainage History of nasal surgery Hx of arthroscopy of right knee Hx of tonsillectomy Social History household members: spouse and children housing: house current occupational status: employed Smoking Status: Never smoker alcohol intake: current details: pre substance use type: does not use caffeine: Yes seatbelt use: always do you feel safe at home: Yes additional social history: Dario- works at a [employer] patient works at a [employer] office History 4 Elective abortions 0 Hx Para 3 Spontaneous abortions 0 Hx # Term Pregnancies 3 Ectopic pregnancies 0 Hx # Pregnancies 0 Multiple births 0 # of living children 3 Past Pregnancies Del. Date Name GA/Weeks Outcome Route Bth Weight Gen Labor Lgth Anesthesia Del Locatn Provider FOB Unknown 2004 Mae 37 live - full term 6lbs 14oz Female 11.5 epidural [facility] Dr. Marte Unknown 2007 Sanna 38 live - full term 7lbs 14oz Female 6.5 epidural [facility] Dr. Marte Unknown 2015 Fallisa 39 live - full term 8lbs 5oz Female 10 epidural [facility] Delivery Date: Last Updated by: Verena Smiley no complications to note Delivery Date: Last Updated by: Verena Smiley No complications to note Delivery Date: Last Updated by: Verena Smiley induction at 39w due to maternal herniated abdominal wall, polyhydramios Visit Details Expected Delivery Route/Plan consider IOL 39-40 weeks AMA Labor Preferences- CB/BF classes: [] labor support person: [] labor intervention preferences: [] pain management options preferred: [] cut cord/dad catch: [] : [] PP control planned: [] discussed possible routes of delivery and associated risks: [] special requests: [] Plans Covid status: discussed Flu vaccine: discussed Tdap vaccine: given Rhogam: given LARC form signed: declined movement and labor precautions reviewed. Problem list reviewed and updated with the most current plan of care details and appropriate orders placed. Relevant counseling for the gestational age provided. Continue routine care and follow up unless otherwise noted in visit notes/problem list details OB Flowsheet Initial Weight: 226 lb Date <del>?</del> EGA Weight BP Urine Prot <del>?</del> Glucose FHR FuHt Pres Dilation <del>?</del> Effaced St Visit Note 05/13/21 <del>?</del> 8w 2d 226 lb (+0 oz) 130/80 <del>?</del> 160 <del>?</del> SM- CRL cons with LMP 06/07/21 <del>?</del> 11w 6d 228 lb (+2 lb) 122/82 <del>?</del> 145 <del>?</del> SM- no vb cramping 07/06/21 <del>?</del> 16w 0d 236 lb (+10 lb) 112/68 Trace <del>?</del> Negative 147 <del>?</del> MH-NO VB, LOF. Feeling some flutters. Enc Fe for anemia. anatomy US 08/0508/05/21 <del>?</del> 20w 2d 241 lb (+15 lb) 132/86 <del>?</del> 150 <del>?</del> SM- no vb lof good fm no reuglar ctx 09/03/21 <del>?</del> 24w 3d 249 lb 2 oz (+23 lb 2 oz) 118/80 Negative <del>?</del> Negative 140 24 <del>?</del> SM- no vb lof good fm no regular ctx lost grandmother yesterday, coping appropriately 09/21/21 <del>?</del> 27w 0d 252 lb 4 oz (+26 lb 4 oz) 110/64 Negative <del>?</del> Negative 161 <del>?</del> MH-Spouse fell on her abdomen while trying to get up. Happened yesterday but sore at area. No bleeding. Good FM. Needs rhogam and will do 28 wk labs today also. 10/15/21 <del>?</del> 30w 3d 255 lb (+29 lb) 120/68 <del>?</del> 150 32 34 <del>?</del> JV- no lof, vaginal bleeding, or dec fm. HC measured today with bedside ultrasound and found to be 30 weeks 2 days. could not adequately measure AC. will ge a 36 weeks growth scan due to obesity and start weekly nsts at 36 weeks. 10/26/21 <del>?</del> 32w 0d 256 lb 4 oz (+30 lb 4 oz) 110/70 Negative <del>?</del> Negative 150 34 <del>?</del> SM- no vb lof good fm no regular ctx 11/09/21 <del>?</del> 34w 0d 258 lb (+32 lb) 114/76 <del>?</del> 130 36 <del>?</del> SM- no vb lof good fm no regular ctx 11/17/21 <del>?</del> 35w 1d 258 lb 2 oz (+32 lb 2 oz) 110/75 <del>?</del> Negative 143 Transverse <del>?</del> 0 MH-work in for leaking fluid, low back pain. Good FM. Urine culture and ROM pending. 11/26/21 <del>?</del> 36w 3d 258 lb 4 oz (+32 lb 4 oz) 129/76 Negative <del>?</del> Negative 144 38 Cephalic 1 <del>?</del> 30 -3 JV- no lof, vaginal bleeding, or dec fm. willl try vistaril for sleeplessness. and nystatin powder for cutaneous yeast infection in crease of legs. JV- no lof, vaginal bleeding, or dec fm. willl try vistaril for sleeplessness. and nystatin powder for cutaneous yeast infection in crease of legs. pt wants membranese swept and I explained to her that it is too early and also likley ineffective at this dilation 12/02/21 <del>?</del> 37w 2d 259 lb (+33 lb) 104/74 Negative <del>?</del> Negative 140 39 Cephalic 1 <del>?</del> SM- no vb lof good fm no regular ctx. 12/08/21 <del>?</del> 38w 1d 258 lb (+32 lb) 129/60 125/61 124/69 121/66 123/69 15 mg/dl (Negative) H <del>?</del> <del>?</del> NST FHR Rate Baby A Baseline: 110-120 baseline Variability:: Moderate Accelerations:: 15 x 15 Decelerations:: None FHR Category:: Category I Uterine Activity:: occasional Assessment & Plan (1) UTI (urinary tract infection) during : COMMENT: treated with macrobid; Repeat culture negative PLAN: -urine dip on L&D with nitrates, leukes- will treat for UTI Macrobid 100mg BIDx7 days (2) Supervision of high risk , unspecified, first trimester: COMMENT: PRR SHANE: 12/21/21 girl Abdelrahman PC: Sanna Wall Fallyn Boyfriend: Dario (first child) (3) : QUALIFIERS: Weeks of gestation: 37 weeks Qualified Code(s): Z3A.37 - 37 weeks gestation of COMMENT: GBS Negative, NIPT low risk, carrier neg. afp declined. Anatomy US normal, 11/11/21 growth adequate, baby transverse (4) Obesity affecting : QUALIFIERS: Trimester: second trimester Qualified Code(s): O99.212 - Obesity complicating , second trimester COMMENT: AMA and BMI 44, weekly BPP after 34 and growth US q 4 weeks. encourage healthy weight gain and diet, 11/26 BPP nl (5) Advanced maternal age (AMA) in : COMMENT: low risk NIPT. testing see obesity a/p. (6) Anxiety and depression: COMMENT: well controlled, encouraged counseling, not currently on medication (7) Rh negative status during : QUALIFIERS: Trimester: second trimester Qualified Code(s): O26.892 - Other specified related conditions, second trimester; Z67.91 - Unspecified blood type, Rh negative COMMENT: rhogam at 28 weeks and PRN (8) Anemia in preg-unspec: QUALIFIERS: Trimester: second trimester Qualified Code(s): O99.012 - Anemia complicating , second trimester COMMENT: add Fe. repeat nl cbc PLAN: Plan Patient presents for triage evaluation secondary to [BP elevated at home] PEc labs negative. BP stable in triage FHT: [positive] Moderate variability reactive no decelerations category I tracing Gustavus: [occ] Contractions Assessment and plan: Reactive NST, reassuring maternal and status patient discharged to home to follow-up [on monday in office]. See problem list details for additional plan information. Charges/Coding Multi Select Codes Urinary/Genital Urinary/Genital CPT Codes: 13548-44 non-stress test Interp
== END 2021-12-08 16:05 | disposition home or self-care (01) ==
LOC: WPOUT 14:37 → WP 14:38
PROVIDERS: PCP Family Medicine; Visit Provider Registered Nurse
DX: R03.0 Elevated blood-pressure reading, without diagnosis of hypertension (principal); Z33.1 Pregnant state, incidental
CPT/HCPCS: 59050; 81001; 82565; 82570; 84112; 84156; 84450; 84460; 84550; 85027; 99218; G0378

== ENCOUNTER → 2021-12-10 | Outpatient (CLI) | payer MEDICAID, SELFPAY ==
--- NOTE | 2021-12-10 07:54 | US_ITS ---
STUDY: SECOND AND THIRD TRIMESTER OBSTETRICAL ULTRASOUND REASON FOR EXAM: Female, 36 years old growth, well being LMP: 03/16/2021. TECHNIQUE: Transabdominal TECHNICAL QUALITY: Adequate. PRIOR ULTRASOUND: None. FINDINGS: There is a single intrauterine fetus. The fetus is in a cephalic presentation. There is demonstrated cardiac activity with a heart rate of 129 bpm. There is a normal amniotic fluid volume. The largest amniotic fluid pocket measures 3.5 cm. The amniotic fluid index (VERONIQUE) is 10.3 cm. The placenta is anterior in location and is not low lying. There are Grade 2 placental changes. The cervix was not able to be measured due to head positioning. The adnexal regions are not visualized. BIOMETRY: BPD: 9.2 cm: 37 weeks, 2 days HC: 33.8 cm: 38 weeks, 5 days AC: 38 cm: 41 weeks, 6 days FL: 7.5 cm: 38 weeks, 3 days CI: 80% FL/BPD: 82% FL/HC: FL/AC: 20% HC/AC: 0.89 age by current US: 38 weeks, 5 days. SHANE by current US: 12/19/2021. Estimated weight: 4071 grams, +/- 611 grams, 96 %. age by prior US: 39 weeks, 1 days. SHANE by prior US: 12/16/2021. Age by LMP: 38 weeks, 3 days. SHANE by LMP: 12/21/2021. IMPRESSION: Single live uterine gestation with a mean gestational age of 39 weeks and 1 day. The measurements obtained today following thin the normal expected range . Electronically Signed: Donnell Garber MD at 8:58 EDT , STUDY: OBSTETRICAL ULTRASOUND - BIOPHYSICAL PROFILE REASON FOR EXAM: Female, 36 years old growth, well being LMP: 03/16/2021. PRIOR ULTRASOUND: Comparison is made with prior study dated 12/03/2021. TECHNIQUE: Transabdominal TECHNICAL QUALITY: Adequate. FINDINGS: There is a single intrauterine fetus. The fetus is in a cephalic presentation. There is demonstrated cardiac activity with a heart rate of 129 bpm. There is a normal amniotic fluid volume. The largest amniotic fluid pocket measures 3.5 cm. The amniotic fluid index (VERONIQUE) is 10.3 cm. The placenta is anterior in location and is not low lying. There are Grade 0 placental changes. BIOPHYSICAL PROFILE: Breathing Movements (FBM): 2 Gross Body Movements (GBM): 2 Tone (FT): 2 Amniotic Fluid Volume (AFV): 2 TOTAL SCORE: US/OB Limited With Biometrics IMPRESSION: Normal biophysical profile of 09/20. Electronically Signed: Donnell Garber MD at 8:59 EDT ,
== END | disposition home or self-care (01) ==
LOC: OPUS 07:54
PROVIDERS: PCP Family Medicine; Referring Provider Obstetrics & Gynecology; Visit Provider Obstetrics & Gynecology
DX: O99.810 Abnormal glucose complicating pregnancy (principal); O99.212 Obesity complicating pregnancy, second trimester
CPT/HCPCS: 76816; 76819

== ENCOUNTER 2021-12-15 06:50 | Inpatient (IN) | payer MEDICAID, SELFPAY ==
[2021-12-15] VITALS (47 sets, daily range): BP systolic 104–185; BP diastolic 51–140; PULSE 75–104; TEMP 36.3–37.5; O2SAT 82–100; BMI 44.2
[2021-12-15] MEDS: Lactated Ringers 1,000 ML 50 ML IV (07:45)
[2021-12-15 08:10] LABS: Absolute Lymphocyte Count 1.83 X10^3/uL (0.83-4.51); Absolute Neutrophil Count 7.5 X10^3/uL (2.0-7.7); Basophil# 0.02 X10^3/uL; Basophil% 0.2 % (0-1); Eosinophil# 0.05 X10^3/uL; Eosinophils% 0.5 % (0-5); Hematocrit 36.9 % (37-47); Hemoglobin 11.8 g/dL (12.0-15.0); Lymphocyte # 1.83 X10^3/ul (0.83-4.51); Mean Corpuscular Hgb 26.3 pg (27.0-32.0); Mean Corpuscular Volume 82.4 fL (81-99); Mean Platelet Vol. 11.3 fl (6.2-12.0); Monocyte# 0.72 X10^3/uL; Monocyte% 7.1 % (0-10); NRBC Flagged by Analyzer 0 % (0-5); Neutrophil # 7.49 X10^3/uL (2.7-7.7); Neutrophil % 73.5 % (47-70); Platelet Count 251 K/mm3 (150-450); RBC Distribution Width CV 14.6 % (11.6-14.6); RBC Distribution Width SD 43.3 fl (35.1-43.9); Red Blood Count 4.48 M/mm3 (4.2-5.4); White Blood Count 10.2 K/mm3 (4.4-11.0)
[2021-12-15] MEDS: miSOPROStol 50 MCG TABLET BUCCAL (09:32)
[2021-12-15] MEDS: LACTATED RINGERS 500 ML 999 ML IV (12:04)
[2021-12-15] MEDS: fentaNYL-bupivacaine (epidural) 100 ML BAG EPIDURAL (13:44)
[2021-12-15] MEDS: Lactated Ringers 1,000 ML 200 ML IV (16:29)
--- NOTE | 2021-12-15 17:28 | HP.PCM.OB_ITS ---
HPI - General General Date of Admission: 12/15/21 HPI Narrative ELLIOTT FLORES, is a 36 y/o who is a @ 39 weeks 1 day who presents to L&D for IOL due to macrosomia, favorable cervix and obesity. Her baby's estimated weight is 9 pounds. Maternal Data Information SHANE Calculator Estimated Delivery Date Method Current WG Current Estimate 12/21/21 LMP (Certain) 39w 1d Other Estimates 12/21/21 Ultrasound #1 39w 1d PFSH PFSH Medical History (Updated 12/15/21 @ 08:19 by Ermelinda Heller) Alcohol use Anemia Anxiety and depression COVID CPAP (continuous positive airway pressure) dependence Easy bruising Fatigue Frequent headaches Gastric reflux Gastrointestinal problem Goiter Jocelyn's disease Hormone deficiency Hx of hypotension Hypothyroidism (acquired) Intradermal nevus of face Intradermal nevus of neck Intradermal nevus of torso Leg cramps Migraine headache Non-smoker Restless legs Seasonal allergies Shortness of breath on exertion Thyroid disease UTI (urinary tract infection) during Home Medications lactobacillus combination no.9 4 billion cell capsule (Adult 50 Plus Probiotic) PO [employer] [facility] 05/13/21 [History Last Taken Unknown] prenat.vits,kelly,fgo-pndb-iyphl 1 tab PO DAILY 05/13/21 [History Last Taken 12/14/21 19:30] clindamycin phosphate 1 % topical gel 1 applic topical DAILY acne 07/06/21 [History Last Taken Unknown] loratadine 10 mg tablet (Claritin) 10 mg PO PRN PRN seasonal allergues 11/23/21 [History Last Taken Unknown] Macrobid 100 mg PO/SL BID Check with primary doctor 12/15/21 [History Last Taken 12/15/21 05:30] Allergy/AdvReac Type Severity Reaction Status Date / Time latex Allergy Intermediate body rash Verified 12/15/21 07:23 penicillin G Allergy Hives Verified 12/15/21 07:23 shellfish derived Allergy Rash Verified 12/15/21 07:23 sulfamethoxazole Allergy Anaphylaxis Verified 12/15/21 07:23 [From Bactrim] trimethoprim [From Bactrim] Allergy Anaphylaxis Verified 12/15/21 07:23 Family History Other Anemia Anesthesia complication Asthma CVA (cerebral vascular accident) Depression Diabetes Hypertension Thyroid disorder Surgical History (Updated 12/15/21 @ 08:19 by Ermelinda Heller) Gave to child recently History of excision of lesion History of incision and drainage History of nasal surgery Hx of arthroscopy of right knee Hx of tonsillectomy Social History household members: spouse and children housing: house current occupational status: employed Smoking Status: Never smoker alcohol intake: current details: pre substance use type: does not use caffeine: Yes seatbelt use: always do you feel safe at home: Yes additional social history: Dario- works at 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 Date Name GA/Weeks Outcome Route Bth Weight Infant Gen Labor Lgth Anesthesia Del Locatn Provider FOB Unknown 2004 Mae 37 live - full term 6lbs 14oz Fe male 11.[address] [facility] [address]. Marte Unknown 2007 Sanna 38 live - full term 7lbs 14oz Female 6.[address] [facility] [address] Marte Unknown 2015 Fallyn 39 live - full term 8lbs 5oz Female 10 epidural [facility] Delivery Date: Last Updated by: Verena Smiley no complications to note Delivery Date: Last Updated by: Verena Smiley No complications to note Delivery Date: Last Updated by: Verena Smiley induction at 39w due to maternal herniated abdominal wall, polyhydramios Visit Details Expected Delivery Route/Plan consider IOL 39-40 weeks AMA Labor Preferences- CB/BF classes: [] labor support person: [] labor intervention preferences: [] pain management options preferred: [] cut cord/dad catch: [] : [] PP control planned: [] discussed possible routes of delivery and associated risks: [] special requests: [] Plans Covid status: discussed Flu vaccine: discussed Tdap vaccine: given Rhogam: given LARC form signed: declined movement and labor precautions reviewed. Problem list reviewed and updated with the most current plan of care details and appropriate orders placed. Relevant counseling for the gestational age provided. Continue routine care and follow up unless otherwise noted in visit notes/problem list details OB Flowsheet Initial Weight: 226 lb Date -?-?-?-?-?-?-?-?-?-?-?-?- EGA Weight BP Urine Prot -?-?-?-?-?-?-?-?-?-?-?-?- Glucose FHR FuHt Pres Dilation -?-?-?-?-?-?-?-?-?-?-?-?- Effaced St Visit Note 05/13/21 -?-?-?-?-?--?-?-?-?-?-?-?- 8w 2d 226 lb (+0 oz) 130/80 -?-?-?-?-?-?-?-?-?-?-?-?- 160 -?-?-?-?-?-?-?-?-?-?-?-?- SM- CRL cons wit h LMP 06/07/21 -?-?-?-?-?-?-?-?-?-?-?-?- 11w 6d 228 lb (+2 lb) 122/82 -?-?-?-?-?-?-?-?-?-?-?-?- 145 -?-?-?-?-?--?-?-?-?-?-?-?- SM- no vb crampi ng 07/06/21 -?-?-?-?-?-?-?-?-?-?-?-?- 16w 0d 236 lb (+10 lb) 112/68 Trace -?-?-?-?-?-?-?-?-?-?-?-?- Negative 147 -?-?-?-?-?-?-?-?-?-?-?-?- MH-NO VB, LOF. F eeling some flutters. Enc Fe for anemia. anatomy US 08/0508/05/21 -?-?-?-?-?-?-?-?-?-?-?-?- 20w 2d 241 lb (+15 lb) 132/86 -?-?-?-?-?-?-?-?-?-?-?-?- 150 -?-?-?-?-?-?-?-?-?-?-?-?- SM- no vb lof go od fm no reuglar ctx 09/03/21 -?-?-?-?-?-?-?-?-?-?-?-?- 24w 3d 249 lb 2 oz (+23 lb 2 oz) 118/80 Negative -?-?-?-?-?-?-?-?-?-?-?-?- Negative 140 24 -?-?-?-?-?-?-?-?-?-?-?-?- SM- no vb lof go od fm no regular ctx lost grandmother yesterday, coping appropriately 09/21/21 -?-?-?-?-?-?-?-?-?-?-?-?- 27w 0d 252 lb 4 oz (+26 lb 4 oz) 110/64 Negative -?-?-?-?-?-?-?-?-?-?-?-?- Negative 161 -?-?-?-?-?-?-?-?-?-?-?-?- MH-Spouse fell o n her abdomen while trying to get up. Happened yesterday but sore at area. No bleeding. Good FM. Needs rhogam and will do 28 wk labs today also. 10/15/21 -?-?-?-?-?-?--?-?-?-?-?-?- 30w 3d 255 lb (+29 lb) 120/68 -?-?-?-?-?-?-?-?-?-?-?-?- 150 32 34 -?-?-?-?-?-?-?-?-?-?-?-?- JV- no lof, vagi nal bleeding, or dec fm. HC measured today with bedside ultrasound and found to be 30 weeks 2 days. could not adequately measure AC. will ge a 36 weeks growth scan due to obesity and start weekly nsts at 36 weeks. 10/26/21 -?-?-?-?-?-?-?-?-?-?-?-?- 32w 0d 256 lb 4 oz (+30 lb 4 oz) 110/70 Negative -?-?-?-?-?-?-?-?-?-?-?-?- Negative 150 34 -?-?-?-?-?-?-?-?-?-?-?-?- SM- no vb lof go od fm no regular ctx 11/09/21 -?-?-?-?-?-?-?-?-?-?-?-?- 34w 0d 258 lb (+32 lb) 114/76 -?-?-?-?-?-?-?-?-?-?-?-?- 130 36 -?-?-?-?-?-?-?-?-?-?-?-?- SM- no vb lof go od fm no regular ctx 11/17/21 -?-?-?-?-?-?-?-?-?-?-?-?- 35w 1d 258 lb 2 oz (+32 lb 2 oz) 110/75 -?-?-?-?-?-?-?-?-?-?-?-?- Negative 143 Transverse -?-?-?-?-?-?--?-?-?-?-?-?- 0 MH-work in for leaking fluid, low back pain. Good FM. Urine culture and ROM pending. 11/26/21 -?-?-?-?-?-?-?-?-?-?-?-?- 36w 3d 258 lb 4 oz (+32 lb 4 oz) 129/76 Negative -?-?-?-?-?-?-?-?-?-?-?-?- Negative 144 38 Cephalic 1 -?-?-?-?-?-?-?-?-?-?-?-?- 30 -3 JV- no lof , vaginal bleeding, or dec fm. willl try vistaril for sleeplessness. and nystatin powder for cutaneous yeast infection in crease of legs. JV- no lof, vaginal bleeding , or dec fm. willl try vistaril for sleeplessness. and nystatin powder for cutaneous yeast infection in crease of legs. pt wants membranese swept and I explained to her that it is too early and also likley ineffective at this dilation 12/02/21 -?-?-?-?-?-?-?-?-?-?-?-?- 37w 2d 259 lb (+33 lb) 104/74 Negative -?-?-?-?-?-?-?-?-?-?-?-?- Negative 140 39 Cephalic 1 -?-?-?-?-?-?-?-?-?-?-?-?- SM- no vb lof go od fm no regular ctx. 12/10/21 -?-?-?-?-?-?-?-?-?-?-?-?- 38w 3d 262 lb (+36 lb) 128/84 -?-?-?-?-?-?-?-?-?-?-?-?- 140 38 1.5 -?-?-?-?-?-?-?-?-?-?-?-?- SM- no vb lof go od fm no regular ctx plan IOL ROS Constitutional Constitutional: Denies change in weight, fatigue, fever(s), headache(s), poor appetite or weakness Eyes Eyes: Denies blurry vision, change in vision, seeing flashes or spots in vision ENT HEENT: Denies dizziness, headache(s), loss taste/smell or sore throat Cardiovascular Cardiovascular: Denies chest pain, dizziness, dyspnea, irregular heart rhythm, leg edema, palpitations, rapid heart rate or vomiting Respiratory/Chest Respiratory/Chest: Denies chest tightness, cough, dyspnea or breast pain Gastrointestinal Gastrointestinal: Denies abdominal pain, anorexia, constipation, cramping, diarrhea, hemorrhoids, vomiting or weight changes Genitourinary Genitourinary: Denies dysuria, flank pain, genital lesions, genital pain, urinary frequency or urinary urgency Musculoskeletal Musculoskeletal: Denies back pain, difficulty walking, joint pain, limited range of motion, muscle cramps or numbness Integumentary Integumentary: Denies lesions or unusual bruising Neurologic Neurologic: Denies abnormal movements, abnormal speech, dizziness, numbness, seizure-like activity or syncope Psychiatric Psychiatric: Denies anxiety, behavioral changes, change in appetite, change in libido, cognitive impairment, confusion, depression, difficulty concentrating, hallucinations or suicidal thoughts Endocrine Endocrinology: Denies excessive sweating, polydipsia or polyuria Hematologic/Lymphatic Hematologic/Lymphatic: Denies easy bleeding, easy bruising or lymphadenopathy Allergic/Immunologic Allergic/Immunologic: Denies itchy eyes, lip swelling, seasonal rhinorrhea, rhinitis, throat swelling, tongue swelling, eczemia, wheezing or asthma Vital Signs Vital Signs Vital Signs: 12/15/21 07:32 12/15/21 07:33 12/15/21 07:33 Temperature Temperature Source Temporal Pulse Rate 104 H Blood Pressure 120/72 BP Systolic 120 BP Diastolic 72 Pulse Ox 12/15/21 07:32 12/15/21 09:33 12/15/21 09:33 Temperature 97.4 F L Temperature Source Pulse Rate 87 Blood Pressure 109/68 BP Systolic 109 BP Diastolic 68 Pulse Ox 12/15/21 09:33 12/15/21 09:33 12/15/21 10:43 Temperature 98.1 F Temperature Source Temporal Temporal Pulse Rate Blood Pressure BP Systolic BP Diastolic Pulse Ox 12/15/21 10:44 12/15/21 10:44 12/15/21 10:43 Temperature 98.0 F Temperature Source Pulse Rate 83 Blood Pressure 123/63 H BP Systolic 123 BP Diastolic 63 Pulse Ox 12/15/21 11:20 12/15/21 11:20 12/15/21 11:20 Temperature Temperature Source Pulse Rate 83 Blood Pressure BP Systolic BP Diastolic Pulse Ox 82 98 12/15/21 11:22 12/15/21 11:22 12/15/21 11:20 Temperature 99.0 F Temperature Source Pulse Rate 88 Blood Pressure 128/63 H BP Systolic 128 BP Diastolic 63 Pulse Ox 12/15/21 11:20 12/15/21 12:53 12/15/21 12:53 Temperature Temperature Source Temporal Pulse Rate 86 Blood Pressure 113/59 L BP Systolic 113 BP Diastolic 59 Pulse Ox 12/15/21 12:53 12/15/21 12:53 12/15/21 12:53 Temperature 98.0 F Temperature Source Temporal Pulse Rate Blood Pressure BP Systolic BP Diastolic Pulse Ox 98 12/15/21 13:13 12/15/21 13:13 12/15/21 13:18 Temperature Temperature Source Pulse Rate 92 Blood Pressure 135/80 H BP Systolic 135 BP Diastolic 80 Pulse Ox 98 12/15/21 13:18 12/15/21 13:18 12/15/21 13:23 Temperature Temperature Source Pulse Rate 89 Blood Pressure 131/74 H BP Systolic 131 BP Diastolic 74 Pulse Ox 100 12/15/21 13:23 12/15/21 13:23 12/15/21 13:28 Temperature Temperature Source Pulse Rate 89 Blood Pressure 138/69 H BP Systolic 138 BP Diastolic 69 Pulse Ox 100 12/15/21 13:28 12/15/21 13:28 12/15/21 13:33 Temperature Temperature Source Pulse Rate 93 92 Blood Pressure BP Systolic BP Diastolic Pulse Ox 99 12/15/21 13:33 12/15/21 13:34 12/15/21 13:34 Temperature Temperature Source Pulse Rate 93 Blood Pressure 136/79 H BP Systolic 136 BP Diastolic 79 Pulse Ox 99 12/15/21 13:38 12/15/21 13:38 12/15/21 13:38 Temperature Temperature Source Pulse Rate 98 Blood Pressure 150/78 H BP Systolic 150 BP Diastolic 78 Pulse Ox 100 12/15/21 13:44 12/15/21 13:43 12/15/21 13:43 Temperature Temperature Source Pulse Rate 90 Blood Pressure 179/125 H BP Systolic 179 BP Diastolic 125 Pulse Ox 100 12/15/21 13:44 12/15/21 13:44 12/15/21 13:47 Temperature Temperature Source Temporal Pulse Rate 93 Blood Pressure 185/140 H BP Systolic 185 BP Diastolic 140 Pulse Ox 12/15/21 13:47 12/15/21 13:49 12/15/21 13:49 Temperature 98.3 F Temperature Source Pulse Rate 86 Blood Pressure 111/55 L BP Systolic 111 BP Diastolic 55 Pulse Ox 12/15/21 13:48 12/15/21 13:53 12/15/21 13:53 Temperature Temperature Source Pulse Rate 90 Blood Pressure BP Systolic BP Diastolic Pulse Ox 99 100 12/15/21 13:54 12/15/21 13:54 12/15/21 13:59 Temperature Temperature Source Pulse Rate 88 80 Blood Pressure 113/67 BP Systolic 113 BP Diastolic 67 Pulse Ox 12/15/21 13:58 12/15/21 13:59 12/15/21 14:03 Temperature Temperature Source Pulse Rate 94 Blood Pressure 119/70 BP Systolic 119 BP Diastolic 70 Pulse Ox 100 12/15/21 14:03 12/15/21 14:04 12/15/21 14:04 Temperature Temperature Source Pulse Rate 87 Blood Pressure 119/56 L BP Systolic 119 BP Diastolic 56 Pulse Ox 98 12/15/21 14:08 12/15/21 14:08 12/15/21 14:08 Temperature Temperature Source Pulse Rate 79 Blood Pressure 116/55 L BP Systolic 116 BP Diastolic 55 Pulse Ox 100 12/15/21 14:13 12/15/21 14:13 12/15/21 14:15 Temperature Temperature Source Pulse Rate 84 Blood Pressure 109/56 L BP Systolic 109 BP Diastolic 56 Pulse Ox 100 12/15/21 14:15 12/15/21 14:31 12/15/21 14:31 Temperature 97.3 F L Temperature Source Temporal Pulse Rate 84 Blood Pressure BP Systolic BP Diastolic Pulse Ox 12/15/21 14:45 12/15/21 14:45 12/15/21 14:46 Temperature Temperature Source Pulse Rate 76 Blood Pressure 104/51 L BP Systolic 104 BP Diastolic 51 Pulse Ox 100 12/15/21 14:46 12/15/21 15:46 12/15/21 15:46 Temperature Temperature Source Pulse Rate 75 88 Blood Pressure 115/74 BP Systolic 115 BP Diastolic 74 Pulse Ox 12/15/21 14:46 12/15/21 14:46 12/15/21 15:46 Temperature 98.0 F Temperature Source Temporal Temporal Pulse Rate Blood Pressure BP Systolic BP Diastolic Pulse Ox 12/15/21 15:46 12/15/21 16:53 12/15/21 16:53 Temperature 98.7 F Temperature Source Pulse Rate 86 Blood Pressure 123/64 H BP Systolic 123 BP Diastolic 64 Pulse Ox 12/15/21 16:58 12/15/21 16:53 12/15/21 16:58 Temperature 97.9 F Temperature Source Temporal Pulse Rate Blood Pressure BP Systolic BP Diastolic Pulse Ox 100 Weight Weight: 258 lb Body Mass Index (BMI) 44.2 Physical Exam Const alert, oriented x3, no apparent distress and healthy appearing General Appearance: cooperative; Negative for anxious HEENT normocephalic Face and Sinus: normal facial exam Eyes EOMs intact bilaterally and no scleral icterus General Eye: normal appearance of both eyes Neck full ROM and supple Lymph Lymphatic: no lymphadenopathy noted Chest Chest: abnormal inspection of the chest Resp normal respiratory effort Effort and Inspection: able to speak in complete sentences Cardio regular rate GI soft to palpation and non-tender Inspection: gravid Palpation: soft; Negative for tender external exam normal Back/Spine no CVA tenderness Extremity normal to inspection, full ROM and no clubbing, cyanosis or edema General Extremity: Negative for calf tenderness or edema Skin Lesions: no lesions Rashes: no rashes Psych mental status grossly normal Labs Labs Labs: Blood Type AB NEGATIVE Antibody Screen NEGATIVE Hct 36.9 % (37-47) L Hgb 11.8 g/dL (12.0-15.0) L Obstetrics US Syphilis Total Ab Non-reactive Rubella IgG Antibody Reactive (Nonreactive) Hep Bs Antigen Non-Reactive (Nonreactive) Chlamydia DNA (ANGELLA) Negative (Negative) Neisseria gonorrhoeae DNA (ANGELLA) Negative (Negative) HIV 1&2 Antibody Non-Reactive (Nonreactive) Glucose 1 Hr 50 gm 153 mg/dL (70-140) H Group B Strep DNA Negative (Negative) Rhogam given: No Miscellaneous Test Assessment & Plan (1) Supervision of high risk , unspecified, first trimester: COMMENT: PRR SHANE: 12/21/21 girl [place] PC: Sanna Wall Fallyn Boyfriend: Dario (first child) (2) : QUALIFIERS: Weeks of gestation: 38 weeks Qualified Code(s): Z3A.38 - 38 weeks gestation of COMMENT: GBS Negative, NIPT low risk, carrier neg. afp declined. Anatomy US normal, 11/11/21 growth adequate, baby transverse (3) Obesity affecting : QUALIFIERS: Trimester: second trimester Qualified Code(s): O99.212 - Obesity complicating , second trimester COMMENT: AMA and BMI 44, weekly BPP after 34 and growth US q 4 weeks. encourage healthy weight gain and diet, 11/26 BPP nl (4) Advanced maternal age (AMA) in : COMMENT: low risk NIPT. testing see obesity a/p. (5) Jocelyn's disease: COMMENT: labs UP TO DATE done eveyr trimester. nl baseline TSH, Free t4, TPO ab qtrimester (not currently taking her thyroid medication), s/p endo referral. Labs normal on 09/21. (6) Anxiety and depression: COMMENT: well controlled, encouraged counseling, not currently on medication (7) Rh negative status during : QUALIFIERS: Trimester: second trimester Qualified Code(s): O26.892 - Other specified related conditions, second trimester; Z67.91 - Unspecified blood type, Rh negative COMMENT: rhogam at 28 weeks and PRN (8) Anemia in preg-unspec: QUALIFIERS: Trimester: second trimester Qualified Code(s): O99.012 - Anemia complicating , second trimester COMMENT: add Fe. repeat nl cbc (9) Abnormal glucose in , antepartum: COMMENT: Pt passed 3 HR GTT. (10) Macrosomia of fetus affecting management of mother: COMMENT: EFW 96%, EFW 4071 grams +/- 611 grams (11) UTI (urinary tract infection) during : COMMENT: treated with macrobid; Repeat culture negative PLAN: Plan Patient presents IOL, plan management for with cytotec 50 mg buccal + arom and pitocin as needed . Pain management: plans epidural. GBS negative. Management of any complications: none I have reviewed the [facility] and made any clinically relevant updates.
--- NOTE | 2021-12-15 17:32 | PN_ITS ---
Progress Note late entry from 12:30 pt is breathing through regular contractions and consents to AROM. current tracing: FHT: 140's Moderate variability reactive no decelerations category I tracing [place]: q2 min Contractions cx: 4/80/-3, membranes ruptured and clear fluid returned with some blood tinge A/P: pt to get epidural now internal monitors as needed pitocin as needed. The increased for shoulder dystocia due to macrosomia was discussed with the patient. Shoulder dystocia carries risk of injury including permanent neurologic injury, brachial nerve injury, fracture, or . After counseling the patient she chooses to proceed with vaginal delivery.
[2021-12-15] MEDS: Oxytocin 10 UNITS/ML Vial IM (17:56)
--- NOTE | 2021-12-15 18:03 | EX.PCM.OBRPT ---
Assessment & Plan (1) Supervision of high risk , unspecified, first trimester: COMMENT: PRR SHANE: 12/21/21 girl [place] PC: Sanna Wall Fallyn Boyfriend: Dario (first child) (2) : QUALIFIERS: Weeks of gestation: 38 weeks Qualified Code(s): Z3A.38 - 38 weeks gestation of COMMENT: GBS Negative, NIPT low risk, carrier neg. afp declined. Anatomy US normal, 11/11/21 growth adequate, baby transverse (3) Obesity affecting : QUALIFIERS: Trimester: second trimester Qualified Code(s): O99.212 - Obesity complicating , second trimester COMMENT: AMA and BMI 44, weekly BPP after 34 and growth US q 4 weeks. encourage healthy weight gain and diet, 11/26 BPP nl (4) Advanced maternal age (AMA) in : COMMENT: low risk NIPT. testing see obesity a/p. (5) Jocelyn's disease: COMMENT: labs UP TO DATE done eveyr trimester. nl baseline TSH, Free t4, TPO ab qtrimester (not currently taking her thyroid medication), s/p endo referral. Labs normal on 09/21. (6) Anxiety and depression: COMMENT: well controlled, encouraged counseling, not currently on medication (7) Rh negative status during : QUALIFIERS: Trimester: second trimester Qualified Code(s): O26.892 - Other specified related conditions, second trimester; Z67.91 - Unspecified blood type, Rh negative COMMENT: rhogam at 28 weeks and PRN (8) Anemia in preg-unspec: QUALIFIERS: Trimester: second trimester Qualified Code(s): O99.012 - Anemia complicating , second trimester COMMENT: add Fe. repeat nl cbc (9) Abnormal glucose in , antepartum: COMMENT: Pt passed 3 HR GTT. (10) Macrosomia of fetus affecting management of mother: COMMENT: EFW 96%, EFW 4071 grams +/- 611 grams (11) UTI (urinary tract infection) during : COMMENT: treated with macrobid; Repeat culture negative Maternal Data Information SHANE Calculator Estimated Delivery Date Method Current WG Current Estimate 12/21/21 LMP (Certain) 39w 1d Other Estimates 12/21/21 Ultrasound #1 39w 1d Vaginal Delivery Maternal Presentation Maternal Presentation: Medically Indicated Induction Type of Induction: Amniotomy and Cytotec (50 mcg Buccal ) Operative Information Date of Procedure: 12/15/21 Pre-Operative Diagnosis: 39 weeks , maternal morbid obesity, macrosomia Post-Operative Diagnosis: 39 weeks , maternal morbid obesity, macrosomia Surgery / Procedure Performed: Spontaneous Vaginal Delivery Type of Anesthesia: Epidural Estimated Blood Loss: 50cc Findings Description of Procedure: Patient began pushing and delivered the head in the TEVIN presentation. The head was delivered atraumatically. The anterior and posterior shoulders delivered without complication followed by the rest of the infant and the infant was placed on the maternal abdomen. Delayed cord clamping was employed for approximately 60 seconds. Cord was clamped and cut and gentle traction was applied to the cord and the placenta delivered spontaneously immediately following it was noted to be intact with three-vessel cord. The perineum and vagina were inspected and noted to have a 1st degree laceration, repaired with a 3-0 vicryl rapide. EBL was 50cc. Patient and tolerated delivery well. Presentation: Vertex Amniotic Membrane Rupture Type: Artificial Time of Membrane Rupture: 12:30 pm Amniotic Fluid Description: Clear Placental Delivery Description: Spontaneous Placenta Disposition: [facility] Cord Vessel Description: 3 Vessels Cord Entanglement: None Infant A Gender: Female (1 minute): 8 (5 minute): 9 Delayed Cord Clamping: Yes Post Vaginal Delivery Medications Given After Delivery: - (IM pitocin 10 mcg) Episiotomy Description: None Laceration: 1st degree Multi Select Codes Urinary/Genital Urinary/Genital CPT Codes: 96576 Vaginal Delivery [facility]
--- NOTE | 2021-12-15 18:10 | DCINST_ITS ---
Discharge Instructions Diet Discharge Diet: No restrictions Activity Discharge Activity: Return to Normal Activity, May Not Drive (while taking narcotic pain medications.) and May Shower May resume sexual activity in: 4-6 weeks Dressing / Incision Call your doctor if your incision/area has: Continuous Slow Oozing, Sudden Increased Bleeding, Increased Pain/ Swelling, Increased Redness and Foul Smelling Discharge Follow Up Care Please Follow Up With: Adrianne Ingram DO When: Call [phone] to make an appointment with your doctor in 6 weeks. If you had elevated blood pressure or 4th degree laceration, you will need to be seen in 2 weeks. Test Results: Test results from this visit will be discussed in further detail at your follow- up appointment, if applicable. Discharge Plan Admission Admit Date/Time: 12/15/21 06:50 Attending Provider: Adrianne Ingram Primary Care Provider: Og Hopson Discharge Orders/Prescriptions Prescriptions: No Action prenat.vits,kelly,rjj-etva-nqyct Tablet 1 tab PO DAILY Adult 50 Plus Probiotic 4 billion cell capsule PO clindamycin phosphate 1 % gel 1 applic topical DAILY loratadine [Claritin] 10 mg Tablet 10 mg PO PRN PRN (Reason: seasonal allergues) Macrobid 100 mg PO/SL BID Referrals / Follow Up: Og Hopson DO [Primary Care Provider] -
[2021-12-15] MEDS: Ibuprofen 600 MG Tablet PO (20:16)
--- NOTE | 2021-12-15 21:00 | NURSING ---
report given to Chauncey Terrell RN and Negrito Morales RN at this time
[2021-12-16 01:30] VITALS: BP 93/49; PULSE 70; RESP 16; TEMP 36.6; O2SAT 98
[2021-12-16 05:00] VITALS: BP 92/53; PULSE 63; RESP 16; TEMP 36.6; O2SAT 99
[2021-12-16] MEDS: Ibuprofen 600 MG Tablet PO ×2 (06:00→15:09)
[2021-12-16 08:08] VITALS: BP 111/40; PULSE 63; RESP 16; TEMP 36.3; O2SAT 97
--- NOTE | 2021-12-16 08:17 | PCM.PN.OB ---
Objective Data Objective Data Vital Signs: Vital Signs Temp Pulse Resp BP Pulse Ox O2 Del Method 97.3 F L 63 16 111/40 L 97 Room Air 12/16/21 08:08 12/16/21 08:08 12/16/21 08:08 12/16/21 08:08 12/16/21 08:08 12/16/21 08:08 Oxygen Delivery Method Room Air Weight: 258 lb Body Mass Index (BMI) 44.2 Intake & Output: Intake and Output for Last 24 Hours 12/14/21 12/15/21 12/16/21 23:59 23:59 23:59 Intake Total 1799.16 / 1799.16 Output Total 750 / 750 500 / 500 Balance 1049.16 / 1049.16 -500 / -500 Lab / Micro Data Result Diagrams: 12/15/21 07:45 Labs: Laboratory Results - last 24 hr 12/15/21 07:45: Blood Type AB NEGATIVE, Antibody Screen NEGATIVE 12/15/21 19:52: Screen NEGATIVE, Baby's Blood Type A POSITIVE, Baby's ELLEN NEGATIVE Micro: Microbiology 12/15/21 07:50 Nasal Secretion SARS-CoV-2 Antigen (Rapid) - Final ROS Constitutional Constitutional: Denies chills, fatigue, fever(s), poor appetite or weakness Eyes Eyes: Denies blurry vision, change in vision, seeing flashes or spots in vision ENT HEENT: Denies dizziness, headache(s), loss taste/smell or sore throat Cardiovascular Cardiovascular: Denies chest pain, dizziness, dyspnea, irregular heart rhythm, palpitations or rapid heart rate Respiratory/Chest Respiratory/Chest: Denies chest tightness, cough, dyspnea or breast pain Gastrointestinal Gastrointestinal: Denies abdominal pain, constipation or vomiting Genitourinary Genitourinary: Denies dysuria or flank pain Musculoskeletal Musculoskeletal: Denies difficulty walking, joint pain, limited range of motion or numbness Neurologic Neurologic: Denies abnormal movements, abnormal speech, dizziness, numbness, seizure-like activity or syncope Psychiatric Psychiatric: Denies anxiety, behavioral changes, change in appetite, confusion, depression or suicidal thoughts Physical Exam Const alert, oriented x3 and no apparent distress General Appearance: cooperative and comfortable Resp normal respiratory effort Cardio regular rate GI normal to inspection, nondistended, normoactive bowel sounds GI Narrative: uterus is firm below umbilicus Palpation: soft Back/Spine no CVA tenderness and thoraco-lumbar ROM normal Extremity normal to inspection, no clubbing, cyanosis or edema, no calf tenderness and no pedal edema Psych mental status grossly normal, thought process normal, cooperative, affect normal, speech normal, activity/motor behavior normal, denies homicidal ideation and denies suicidal ideation Assessment & Plan (1) Status post vaginal delivery: COMMENT: BB girl Abdelrahman- 8 lbs 11 oz , JV PLAN: s/p PPD # 1 1. routine post delivery care 2. breast feeding- support given 3. rh positive 4. rubella immune 5. discussed 24 hour discharge only if ok with peds. baby was 8 lbs 11 oz and may need monitored for glucose levels (2) Supervision of high risk , unspecified, first trimester: COMMENT: PRR SHANE: 12/21/21 girl Abdelrahman PC: Sanna Wall Fallyn Boyfriend: Dario (first child)
--- NOTE | 2021-12-16 13:45 | CASEMGMT ---
Social Work Assessment Labor and Delivery Unit Date of Referral: 12/15/2021 Time of Referral: 19:21 Referred By: Dr. Adrianne Ingram Date of Intervention: 12/16/2021 Time of Intervention: 13:40 Reason for Referral: Mother of baby (MOB) with history of depression and anxiety. History obtained from: MOB, chart, and nursing staff Household composition: MOB, Father of baby (FOB), Mae Cobb (born in 2004), Sanna Cobb (born in 2007), True Kwong (born in 2015) and now this infant Adiel Judd live in a private home together. Patient's parent/guardian status: MOB and FOB have been together for about one year per MOB. This is first for FOB. MOB reports that Mae and Sanna share paternity. True has own paternity. MOB reports to have custody of all children, MOB is mother to all listed children. MOB reports that was not planed but accepted. MOB reports to plan to look into a tubal when I am healed. Medical History: MOB with history prior to delivery of this on 12/15/2021. MOB with induction of labor that resulted in a vaginal delivery. born on 12/[birth year]/2021 with apgars of 8 and 9 at 1min and 5min. MOB plans to breastfeed. to be seen by Dr. Kleber Traylor in the community. Educational Status: MOB denies concerns with comprehension or understanding. Financial Status: MOB denies financial concerns. MOB works for [employer] and will have 6 weeks off work. MOB plans to return to work after 6 weeks maternity leave. Supplies: MOB reports to have all needed supplies as well as crib and car seat. Childcare/Caregiver(s): MOB plans to be primary caregiver until returning to work. Family is supportive and assist with care of children. MOB's other children are with family members while MOB is in the hospital with this . Transportation: MOB denies transportation concerns. Programs/Agencies Involved: MOB active with [employer] for medical insurance. MOB denies any other community services. Children Services/Legal Issues: MOB denies history of children services or legal issues. Mental Health History: MOB reports history of anxiety and depression several years ago. MOB reports to have had a hard time 2-3 years ago and to have been started on medication for anxiety and depression and did some counseling. MOB reports to be good now. MOB denies any active counseling services or medication for mental health. MOB denies any history of depression with prior pregnancies. This social worker school able to facilitate conversation with MOB about signs and symptoms of depression. MOB denies history of suicidal thoughts, plans, intents. Substance Use History: MOB reports social drinking of alcohol when I am not . MOB denies any other substance abuse/use. Maternal and Infant Drug Screens: MOB with negative tox screen on 05/13/2021. No other drug screens obtained. PHQ9: MOB did not trigger. Family/Social Stressors: MOB denies any current family/social stressors. Support Systems: MOB reports to have support from FOB. FOB involved at and during MOB/'s hospital stay. MOB reports to have support from family. Depression and Anxiety/Shaken Baby/Safe Sleeping: This social worker school provided MOB with resources on depression/anxiety, safe sleeping, [facility] general resources, and shaken baby. MOB responding appropriately to prompts for safe sleeping and shaken baby. ASSESSMENT: This social worker school met with MOB, FOB and in room. This social worker school introduced self and social worker school role. MOB agreeable to speak with this social worker school and provided verbal permission to speak openly with FOB present. FOB currently appears to be sleeping on recliner. MOB holding . MOB gazing towards infant often and report to be having a connection. MOB reports that is going well. MOB appropriate affect throughout assessment and engaged in talking with this social worker school. MOB denies concerns on returning to the community. PLAN: MOB to discharge to home with . No other services requested or indicated. Tamara GRACE, ANTHONY
[2021-12-16 13:52] VITALS: BP 90/34; PULSE 75; RESP 16; TEMP 36.8; O2SAT 97
== END 2021-12-16 19:40 | disposition home or self-care (01) | DRG 560 ==
PROVIDERS: Obstetrics & Gynecology; Admitting Provider Obstetrics & Gynecology; PCP Family Medicine; Referring Provider Obstetrics & Gynecology; Visit Provider Obstetrics & Gynecology
DX: O99.214 Obesity complicating childbirth (principal); Z37.0 Single live birth; O99.344 Other mental disorders complicating childbirth; E06.3 Autoimmune thyroiditis; E66.01 Morbid (severe) obesity due to excess calories; F41.9 Anxiety disorder, unspecified; Z3A.39 39 weeks gestation of pregnancy; O99.284 Endocrine, nutritional and metabolic diseases complicating childbirth; O70.0 First degree perineal laceration during delivery; O99.02 Anemia complicating childbirth; F32.A Depression, unspecified
CPT/HCPCS: 59025; 59050; 85025; 85461; 86850; 86900; 86901; 87426; 99218; J7120; G0378; J2790

== ENCOUNTER 2022-02-22 10:08 | Day surgery (SDC) | payer MEDICAID, SELFPAY ==
--- NOTE | 2022-02-21 16:58 | PCM.HP.STD ---
HPI - General HPI Narrative ELLIOTT FLORES, is a 36 F who presents for sterilization surgery. [facility] Medical History (Updated 02/16/22 @ 14:07 by Inga Syed) Advanced maternal age (AMA) in Alcohol use Anemia Anxiety and depression COVID CPAP (continuous positive airway pressure) dependence Easy bruising Fatigue Gastric reflux Gastric reflux Gastrointestinal problem Goiter Jocelyn's disease Hormone deficiency Hx of hypotension Hypothyroidism (acquired) Intradermal nevus of face Intradermal nevus of neck Intradermal nevus of torso Leg cramps Macrosomia of fetus affecting management of mother Migraine headache Migraine headache Non-smoker Restless legs Restless legs Rh negative status during Seasonal allergies Shortness of breath on exertion Supervision of high risk , unspecified, first trimester Thyroid disease Home Medications prenat.vits,kelly,edr-nooy-sgpoh 1 tab PO DAILY 05/13/21 [History Last Taken 12/14/21 19:30] Allergy/AdvReac Type Severity Reaction Status Date / Time latex Allergy Intermediate body rash Verified 02/16/22 13:59 penicillin G Allergy Hives Verified 02/16/22 13:59 shellfish derived Allergy Rash Verified 02/16/22 13:59 sulfamethoxazole Allergy Anaphylaxis Verified 02/16/22 13:59 [From Bactrim] trimethoprim [From Bactrim] Allergy Anaphylaxis Verified 02/16/22 13:59 Family History Other Anemia Anesthesia complication Asthma CVA (cerebral vascular accident) Depression Diabetes Hypertension Thyroid disorder Surgical History Gave to child recently History of excision of lesion History of incision and drainage History of nasal surgery Hx of arthroscopy of right knee Hx of tonsillectomy Status post vaginal delivery Social History household members: spouse and children housing: house current occupational status: employed Smoking Status: Never smoker alcohol intake: current details: pre substance use type: does not use caffeine: Yes seatbelt use: always do you feel safe at home: Yes additional social history: Dario- works at a [employer] 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 ROS Review of Systems ROS Unobtainable: due to mental status and other Constitutional Constitutional: Reports systems reviewed and no addt'l complaints, except as documented; Denies as per HPI, change in weight, fatigue, fever(s), malaise, weakness or other Eyes Eyes: Reports systems reviewed and no addt'l complaints, except as documented; Denies as per HPI, change in vision or other ENT HEENT: Reports systems reviewed and no addt'l complaints, except as documented Respiratory/Chest Respiratory/Chest: Reports systems reviewed and no addt'l complaints, except as documented Gastrointestinal Gastrointestinal: Reports systems reviewed and no addt'l complaints, except as documented and as per HPI Genitourinary Genitourinary: Reports as per HPI Musculoskeletal Musculoskeletal: Reports systems reviewed and no addt'l complaints, except as documented Neurologic Neurologic: Reports systems reviewed and no addt'l complaints, except as documented Psychiatric Psychiatric: Reports systems reviewed and no addt'l complaints, except as documented Endocrine Endocrinology: Reports systems reviewed and no addt'l complaints, except as documented Hematologic/Lymphatic Hematologic/Lymphatic: Reports systems reviewed and no addt'l complaints, except as documented Physical Exam Const alert, oriented x3 and no apparent distress HEENT normocephalic Head and Scalp: atraumatic Eyes EOMs intact bilaterally and conjunctivae normal Neck full ROM, no lymphadenopathy, supple and thyroid normal General: trachea midline Lymph Lymphatic: no lymphadenopathy noted Resp normal respiratory effort, no retractions, no use of accessory muscles and clear to auscultation bilaterally Cardio regular rhythm GI normal to inspection, nondistended, normoactive bowel sounds, soft to palpation, non-distended and no masses Inspection: Negative for abdominal distention Back/Spine no CVA tenderness Extremity normal to inspection Skin no rashes or lesions noted Neuro moves all extremities and deep tendon reflexes 2+ bilaterally Psych mental status grossly normal Assessment & Plan Assessment/Plan (1) Contraception management: PLAN: Plan plan lap BS After discussing the patient's diagnosis and treatment plan options, patient wishes to proceed with surgical management. I have discussed with the patient the risks, benefits, and alternatives of the procedure which include but are not limited to risks of anesthesia, bleeding, infection, possible damage to bowel, bladder, or surrounding vasculature which could lead to additional surgery to evaluate any complications. Patient agrees to procedure and wishes to proceed. ACOG/uptodate references given for additional information regarding procedure. UPDATE- I have seen the patient and performed any clinically relevant updates to the history and physical exam. Cindy Jolly MD
[2022-02-22] VITALS (8 sets, daily range): BP systolic 97–124; BP diastolic 52–97; PULSE 60–89; RESP 16–18; TEMP 36.6–37.3; O2SAT 93–100; BMI 42.0
[2022-02-22] MEDS: Lactated Ringers 1,000 ML 15 ML IV (10:52)
[2022-02-22 11:00] LABS: Absolute Lymphocyte Count 2.46 X10^3/uL (0.83-4.51); Absolute Neutrophil Count 3.5 X10^3/uL (2.0-7.7); Basophil# 0.03 X10^3/uL; Basophil% 0.4 % (0-1); Eosinophil# 0.14 X10^3/uL; Eosinophils% 2.1 % (0-5); Hematocrit 38.7 % (37-47); Lymphocyte # 2.46 X10^3/ul (0.83-4.51); Lymphocyte % 36.6 % (19-41); Mean Corpuscular Hgb 26.8 pg (27.0-32.0); Mean Corpuscular Volume 86.6 fL (81-99); Mean Platelet Vol. 9.6 fl (6.2-12.0); Monocyte# 0.53 X10^3/uL; Monocyte% 7.9 % (0-10); NRBC Flagged by Analyzer 0 % (0-5); Neutrophil # 3.54 X10^3/uL (2.7-7.7); Neutrophil % 52.7 % (47-70); Platelet Count 294 K/mm3 (150-450); RBC Distribution Width CV 16.4 % (11.6-14.6); RBC Distribution Width SD 51.5 fl (35.1-43.9); Red Blood Count 4.47 M/mm3 (4.2-5.4); White Blood Count 6.7 K/mm3 (4.4-11.0)
[2022-02-22 11:08] LABS: Internal QC Validated? YES +Cl - CLEAR BKGD; Pregnancy, Urine Negative Negative
[2022-02-22 11:19] LABS: International Normalized Ratio 1.1; Prothrombin Time (Protime)PT. 13.5 SECONDS (11.7-14.9)
[2022-02-22 11:20] LABS: Partial Thromboplast Time 32.1 Seconds (24.1-36.2)
[2022-02-22 11:32] LABS: AST(SGOT) 11 U/L (15-37); Alanine Aminotransfer ALT/SGPT 21 U/L (13-56); Albumin, Serum 3.3 g/dL (3.2-5.0); Alkaline Phosphatase 98 U/L (45-117); Bilirubin, Direct 0.08 mg/dL (0.00-0.30); Globulin 4.1 g/dL (2.2-4.2); Protein, Total 7.4 g/dL (6.4-8.2); Thyroid Stim Hormone (TSH) 1.28 uIU/mL (0.358-3.74)
--- NOTE | 2022-02-22 11:50 | FALS_PTH ---
PATIENT: ELLIOTT KATZ LOC: [facility] [place] U#:[id number] AGE/SX: 36/F ROOM: RE02/22/[address]: Dr. Cindy Jolly MD : 1985 BED: DIS: 02/22/2022 SPEC #: [id number] RECD: 02/22/22 16:01 STATUS: TYSHAWN BOBBY #: [id number] ENA: 02/22/22 11:[address]: Cindy Jolly DEPT: SURGICAL PATHOLOGY RECD BY: Mary Kay Sargent ENTERED: 02/23/22 07:20 SP TYPE: FALL TUBES OTHR DR: Dr. Og Hopson, Tissues: Fallopian tube Procedures: Surgery Specimen Level II Surgery Specimen Level IV HEADER OPERATION: Laparoscopic bilateral salpingectomy PRE-OP DIAGNOSIS: Contraception management TISSUE SUBMITTED: Bilateral fallopian tubes MICROSCOPIC DIAGNOSIS Bilateral fallopian tubes, salpingectomies: Complete cross-sections of fallopian tubes. One fallopian tube with benign paratubal cyst. AM:clementine 02/24/2022 MICROSCOPIC DESCRIPTION Slides are reviewed. GROSS DESCRIPTION Received in fixative is one container labeled with the patient's name and designated bilateral fallopian tubes. The specimen consists of two fallopian tubes with an average length of 7 cm and has an average diameter of 0.8 cm. Both fallopian tubes have normal fimbriated ends. No mass lesions are identified. One fallopian tube contains a fluid-filled cyst measuring 0.5 cm in diameter. Typing Section Chief sections are submitted in two cassettes as follows: 1 - fallopian tube with cyst, 2 - fallopian tube without cyst. / AM:clementine 02/23/2022 TC:5 CPT: 53546, 95522
--- NOTE | 2022-02-22 12:22 | DCINST_ITS ---
Discharge Instructions Follow Up Care Test Results: Test results from this visit will be discussed in further detail at your follow- up appointment, if applicable. Discharge Plan Admission Attending Provider: Cindy Jolly Primary Care Provider: Og Hopson Discharge Orders/Prescriptions Prescriptions: No Action prenat.vits,kelly,gtz-ribi-wnbwf Tablet 1 tab PO DAILY Referrals / Follow Up: Og Hopson DO [Primary Care Provider] -
--- NOTE | 2022-02-22 12:22 | PCM.OPRPT ---
Report of Operation Pre-Operative Diagnosis: see problem list Post-Operative Diagnosis: same Surgery/Procedure Performed:: laparoscopic bilateral salpingectomy Description of Surgical Findings:: nl uterus tubes ovaries Type of Anesthesia: General and Local Specimen's removed: tubes Drains: none Estimated Blood Loss (mL): 50 Fluids Replaced: crystalloid Description of Procedure: Patient was taken in the operating room and was placed under general anesthesia was prepped and draped in normal sterile fashion in the dorsal lithotomy position. Bladder was drained of clear urine and SCDs were on preoperatively. Uterus was sounded and a uterine manipulator was placed after dilating. Attention was then paid to the abdominal portion of the procedure and the umbilicus was elevated with towel clamps and injected with Marcaine and after a 5 mm incision was made and the Veress needle was entered into the abdomen confirmed to be intra-abdominal with a low opening pressure of less than 5 mmHg. Abdomen was insufflated with CO2 gas and a 5 mm optical trocar was placed under direct visualization. A 5 mm port suprapubically was placed under direct visualization. Uterus was well visualized and bilateral fallopian tubes identified and bilateral tubes were elevated and transecting across the mesosalpinx and the attachment to the uterine corpus bilaterally the tubes were removed without complication. Excellent hemostasis was noted. Fallopian tubes were removed through the lower port site without complication. Liver and upper abdomen were visualized notably within normal limits and no other gross abnormalities were seen in the abdomen. small bleeding noted on top of the uterus so justine applied and hemostatic. All instruments removed from the abdomen after gas was desufflated. Port sites were closed with 3-0 Monocryl Steri's and op sites were applied. All instruments removed from the vagina and patient was awoken and taken recovery in stable condition. Grafts/Implants Used: none Complications none Admit VTE Documentation VTE Present on Admission: No VTE Mechan Device Prophylaxis: SCD's Multi Select Codes Urinary/Genital Urinary/Genital CPT Codes: 08871 Laproscopic BS/O
--- NOTE | 2022-02-22 12:22 | PCM.DC ---
Discharge Instructions Follow Up Care Test Results: Test results from this visit will be discussed in further detail at your follow-up appointment, if applicable. Discharge Plan Admission Attending Provider: Cindy Jolly Primary Care Provider: Og Hopson Discharge Orders/Prescriptions Prescriptions: No Action prenat.vits,kelly,vog-xyso-slstv Tablet 1 tab PO DAILY Referrals / Follow Up: Og Hopson DO [Primary Care Provider] -
[2022-02-22] MEDS: Sugammadex Sodium 200 MG/2 ML VIAL IV (12:47)
--- NOTE | 2022-02-22 15:20 | DCINST_ITS ---
Discharge Instructions Diet Discharge Diet: No restrictions Activity Discharge Activity: Return to Normal Activity, May Drive (when pain free) and May Shower May resume sexual activity in: 1 week Weight Bearing Status: Full weight bearing Lifting Restrictions: 30 lbs for 2 weeks Dressing / Incision Call your doctor if your incision/area has: Continuous Slow Oozing, Sudden Increased Bleeding, Increased Pain/ Swelling, Increased Redness and Foul Smelling Discharge Call your doctor if you observe: Fever of 101 or Higher, Using more than 1 pad per hour, Shortness of breath, Chest pain and Uncontrolled pain Suture Line Care: Avoid Pulling/Pushing and Avoid Pinching/Bending Remove Dressing in: 1 week (if present) Cleanse incision/area with: Soap & Water and Keep Dressing Clean & Dry Follow Up Care Please Follow Up With: Cindy Jolly MD When: Call to make an appointment with your doctor for a postop visit in 2 weeks Test Results: Test results from this visit will be discussed in further detail at your follow- up appointment, if applicable. Discharge Plan Admission Attending Provider: Cindy Jolly Primary Care Provider: Og Hopson Discharge Orders/Prescriptions Prescriptions: New oxycodone-acetaminophen [Percocet] 5-325 mg tablet 1 tab PO Q6H PRN (Reason: pain) 7 Days Qty: 20 0RF naproxen [naproxen] 500 mg tablet 500 mg PO BID PRN PRN (Reason: Pain) Qty: 30 1RF No Action prenat.vits,kelly,iew-dyjj-gqbsw Tablet 1 tab PO DAILY Referrals / Follow Up: Og Hopson DO [Primary Care Provider] - Disposition Discharge Orders: Discharge Patient (Routine); Ordered 02/22/22 Ordered By: Dr. Cindy Jolly
== END 2022-02-22 16:20 | disposition home or self-care (01) ==
LOC: SDC 10:10 → AC 10:12
PROVIDERS: Anesthesiology; PCP Family Medicine; Referring Provider Obstetrics & Gynecology; Visit Provider Obstetrics & Gynecology
PROC: (CPT 58661; principal; 2022-02-22 11:35)
DX: Z30.2 Encounter for sterilization (principal); N83.8 Other noninflammatory disorders of ovary, fallopian tube and broad ligament; E06.3 Autoimmune thyroiditis; Z86.16 Personal history of COVID-19
CPT/HCPCS: 58661; 00840; 80076; 81025; 84443; 85025; 85610; 85730; 86850; 86900; 86901; 88302; 88305; 93005; J7120; J2405

== ENCOUNTER 2022-03-19 11:15 | Outpatient (CLI) | payer MEDICAID, SELFPAY | END 2022-03-19 12:10 | disposition home or self-care (01) | LOC: WPOUT 12:17 → WP 12:17 | PROVIDERS: PCP Family Medicine; Referring Provider Obstetrics & Gynecology; Visit Provider Obstetrics & Gynecology | DX: O92.4 Hypogalactia (principal) | CPT/HCPCS: 96158 ==

== ENCOUNTER 2022-11-09 10:36 | Observation (INO) | payer MEDICAID, SELFPAY ==
--- NOTE | 2022-11-08 22:43 | HP.PCM_ITS ---
History and Physical Date of Admission: 11/09/22 HISTORY OF PRESENT ILLNESS 37 year old woman presents with worsening pain and redness and some odor in her abdominal wall skin crease. She has some intertrigo for which she has used powders and antifungals with minimal relief and no resolution. She recently gave 10 months ago. She also has bilateral inguinal hidradenitis but not bothering her at this time. She denies fever. She denies trauma. She denies recent infection. We have received medical approval for her panniculectomy. It is scheduled for 11/09/22. She comes in today for a preop visit to answer any remaining questions she may have and to sign the office consent. PAST MEDICAL HISTORY Abdominal panniculus Advanced maternal age (AMA) in Alcohol use Anemia Anxiety and depression COVID CPAP (continuous positive airway pressure) dependence Easy bruising Fatigue Gastric reflux Gastrointestinal problem Goiter Jocelyn's disease Hidradenitis Hormone deficiency Hx of hypotension Hypothyroidism (acquired) Intertrigo Intradermal nevus of face Intradermal nevus of neck Intradermal nevus of torso Leg cramps Macrosomia of fetus affecting management of mother Migraine headache Non-smoker Panniculitis Restless legs Rh negative status during Shortness of breath on exertion Supervision of high risk , unspecified, first trimester Thyroid disease PAST SURGICAL HISTORY Gave to child recently H/O bilateral salpingectomy History of excision of lesion History of incision and drainage History of nasal surgery Hx of arthroscopy of right knee Hx of tonsillectomy Status post vaginal delivery ALLERGIES latex penicillin G shellfish sulfamethoxazole [From Bactrim] trimethoprim [From Bactrim] MEDICATIONS prenat.vits,kelly,[id number]-nyhgg nystatin topical powder (Nystop) nystatin-triamcinolone topical cream FAMILY HISTORY Anemia, Anesthesia complication, Asthma, CVA (cerebral vascular accident), Depression, Diabetes, Hypertension, Thyroid disorder SOCIAL HISTORY Smoking Status: Never smoker alcohol intake: current substance use type: does not use REVIEW OF SYSTEMS General - Denies fever and weight loss. Has fatigue. Eyes - Denies cataracts and glaucoma. ENT - Denies nasal congestion and sore throat. Has chronic sinus problems. Has history of sore throat. Has history swollen glands in neck. Endocrine - Denies excessive thirst and urination. Skin - Denies suspicious lesions and skin cancer. Has abdominal panniculus with panniculitis. Has abdominal wall skin crease intertrigo. Has bilateral inguinal hidradenitis, but not bothering her at this time. Musculoskeletal - Denies joint pain, joint stiffness, weakness of muscles and joints, back pain, and arthritis. Neuro - Has headaches. Cardiovascular - Denies chest pain, fatigue, and shortness of breath with exertion. Psych - Denies anxiety and depression. Respiratory - Denies chronic cough and shortness of breath. Gastrointestinal - Denies nausea, vomiting, diarrhea, and constipation. Hematologic - Denies abnormal bruising and bleeding. Has anemia. Genitourinary - Denies hematuria and urinary frequency. PHYSICAL EXAMINATION General - Alert and Oriented. HEENT - PERRL. EOMI. Throat is clear. Neck - Supple and nontender. No cervical adenopathy. Lungs - Clear to auscultation. Heart - Regular rate and rhythm. Abdomen - Soft and nondistended. Has large abdominal panniculus with panniculitis with some tenderness. Has extensive abdominal wall skin crease intertrigo that extends into mons pubis and superiorly to the umbilicus. Has bilateral inguinal hidradenitis. Tender to palpation. Redness and induration present. No purulent drainage noted. Extremities - FROM. No axillary adenopathy. Radial pulses are palpable. Neuro - CN II-XII grossly intact. Psych - Normal mood and affect. ASSESSMENT 1. Abdominal panniculus. 2. Abdominal panniculitis. 3. Abdominal wall skin crease intertrigo. 4. Bilateral inguinal hidradenitis, stable. PLAN Has large abdominal panniculus that is symptomatic with panniculitis. Has associated abdominal wall skin crease intertrigo that she treats with powders. Also has bilateral inguinal hidradenitis that is stable and not bothering her at this time. She would benefit from an abdominal panniculectomy. The skin overhang causes skin to rub on skin which increases moisture and sweat. Surgery would remove the skin rubbing on skin which should minimize further intertrigo as well. We have received medical approval for her surgery for abdominal panniculectomy. If there is too much swelling and the skin edges are too edematous, I will leave the wound open and begin wound care with the VAC. Usually around 4 weeks after surgery, we discuss the options for wound closure, i.e., complex secondary wound closure vs. skin flaps vs skin grafts vs combination of two. She gave 10 months ago. I had told the patient that we had to wait at least 6 months after to proceed with nonemergent surgery. Tissue that is removed at surgery will be sent to Pathology for analysis to rule out carcinoma and to Microbiology for culture. A positive culture will necessitate antibiotic therapy. After surgery will followup at the [facility]ound Center. If there is a plateau in the wound healing process, can proceed with delayed secondary wound closure or skin grafting. Patient was informed of the risks and complications of the procedure including alternatives to surgery. These were discussed with the patient personally. Patient voices understanding and wishes to proceed. Some of the risks and complications were included in a form from the [place] [employer]. She had preop questions regarding her upcoming surgery. They were answered personally and to her satisfaction. Her office consent was signed. The date of her surgery is 11/09/22. It will be done under general anesthesia with a surgical observation overnight stay in the hospital.
[2022-11-09] VITALS (10 sets, daily range): BP systolic 100–126; BP diastolic 59–84; PULSE 65–94; RESP 14–18; TEMP 36.3–36.9; O2SAT 85–100; BMI 42.0
[2022-11-09] MEDS: Lactated Ringers 1,000 ML 15 ML IV (06:38)
--- NOTE | 2022-11-09 07:30 | PANN_PTH ---
PATIENT: ELLIOTT KATZ LOC: MS3 U#:[id number] AGE/SX: 37/F ROOM: DC317 RE11/09/[address]: Dr. Aman Hollins MD : 1985 BED: 1 DIS: 11/11/2022 SPEC #: [id number] RECD: 11/09/22 10:13 STATUS: TYSHAWN RESara #: [id number] ENA: 11/09/22 07:[address]: Aman Hollins DEPT: SURGICAL PATHOLOGY RECD BY: Mary Kay Sargent ENTERED: 11/09/22 12:04 SP TYPE: PANNUS OTHR DR: Dr. Og Hopson DO Tissues: Abdomen, NOS Procedures: Surgery Specimen Level IV HEADER OPERATION: Abdominal panniculectomy PRE-OP DIAGNOSIS: Abdominal panniculus, panniculitis, intertrigo TISSUE SUBMITTED: Abdominal pannus MICROSCOPIC DIAGNOSIS Abdominal pannus, panniculectomy: Dermal fibrosis and minimal chronic inflammation. AM:clementine 11/11/2022 MICROSCOPIC DESCRIPTION Slides are reviewed. GROSS DESCRIPTION Received in fixative is one container labeled with the patient's name and designated abdominal pannus. The specimen consists of two triangular pieces of mckinney-white skin with underlying tissue measuring 33.0 x 20.0 x 5.0 cm and 30.0 x 18.0 x 5.0 cm. Also present in the container are multiple detached pieces of adipose tissue measuring in aggregate 7.0 x 6.0 x 2.0 cm. No obvious skin lesion is identified. Sections do not reveal any mass lesion. Stuffer sections are submitted in six cassettes. Sections will be submitted after additional fixation. / SJ:clementine 11/09/2022 TC:5 CPT: 32042
[2022-11-09] MEDS: Clindamycin 900 MG/50 ML BAG 75 MG IV (07:47)
[2022-11-09] MEDS: Lidocaine 1% /Epi 1:100 (50ml) 50 ML VIAL (09:46)
--- NOTE | 2022-11-09 10:32 | PCM.OPRPT ---
Problems Associated Problem List Diagnoses (1) Abdominal panniculus: (2) Panniculitis: (3) Intertrigo: (4) Hidradenitis: Report of Operation Date of Procedure: 11/09/22 Pre-Operative Diagnosis: 1. Abdominal panniculus. 2. Abdominal panniculitis. 3. Abdominal wall skin crease intertrigo. 4. Bilateral inguinal hidradenitis, stable. Post-Operative Diagnosis: Same. Surgery/Procedure Performed:: Abdominal panniculectomy. Description of Surgical Findings:: 37 year old woman presents with worsening pain and redness and some odor in her abdominal wall skin crease. She has some intertrigo for which she has used powders and antifungals with minimal relief and no resolution. She recently gave 10 months ago. She also has bilateral inguinal hidradenitis but not bothering her at this time. She denies fever. She denies trauma. She denies recent infection. We have received medical approval for her panniculectomy. It is scheduled for 11/09/22. Patient was informed of the risks and complications of the procedure including alternatives to surgery. These were discussed with the patient personally. Patient voices understanding and wishes to proceed. Some of the risks and complications were included in a form from the [place] [employer]. Potential risks and complications included but not inclusive of bleeding, infection, seroma, hematoma, bruising, swelling, loss of sensation to skin, wound breakdown, need for wound care, poor scarring, poor aesthetic outcome, intra operative cardiac or neurologic events, DVT, PE, and reaction to anesthesia. Size of lower anterior abdominal wall wound - 55 x 12 x 6 cm. Surgeon: Aman Hollins MD supervisor sewing department: Alfreda Samano RNFA Type of Anesthesia: General Anesthesiologist: Srinivas Perdomo MD and Christina Hunt CRNA Specimen's removed: Abdominal panniculus to Pathology. Drains: None. Estimated Blood Loss (mL): 50. Fluids Replaced: Urine Output 200 ml Description of Procedure: Patient was taken to OR in supine position and was placed under general anesthesia. The abdominal wall was prepped and draped in the usual fashion. SCD's were placed for DVT prophylaxis. Perioperative antibiotics were given intravenously. A gunter catheter was placed. The abdominal wall skin crease was marked in the preop area prior to coming to the operating room. Using xylocaine with epinephrine, this marking was infiltrated. After waiting 5 minutes for the anesthetic to take effect, I made an inferior horizontal incision through the marking in the abdominal wall skin crease by the pubic area and including some redundant mons pubis tissue down through Doug's fascia until the abdominal wall fascia was seen. I then marked the upper portion of the abdominal panniculus to be excised in the infra-umbilical area. Incision was made and dissection was carried down through Doug's fascia down to the abdominal wall fascia. A lot of fat necrosis was present and was excised. Patient had associated panniculitis with dependent edematous tissue. Laterally I was more superficial in my excision and left some subcutaneous tissue on the abdominal wall fascia to minimize injury to the lateral femoral cutaneous nerve bilaterally. Hemostasis was obtained using electrocautery. The wound was irrigated with saline. The horizontal elliptical excision of the abdominal panniculus was excised and was sent to Pathology for analysis to rule out carcinoma. There is no evidence of active bleeding at this time. The size of the lower anterior abdominal wall wound is 55 x 12 x 6 cm or 660 cm2. The abdominal wall wound was dressed with Mepitel nonadherent dressing followed with Kerlix gauze and Betadine and finished with dry Kerlix gauze and ABD pads compression dressing. An abdominal binder was applied. Patient tolerated the procedure well and was sent to PACU in satisfactory condition. Patient will be sent upstairs for continued postop care. She will be discharged once she is tolerating po analgesia and is steady on her feet with ambulation. The VAC will be applied tomorrow. She will wear her abdominal binder for several weeks postoperatively. Grafts/Implants Used: None. Procedure Start Time: 08:24 Procedure Stop Time: 09:55 Complications None. Admit VTE Documentation VTE Present on Admission: No VTE Mechan Device Prophylaxis: SCD's VTE Pharm Prophylaxis ordered?: Yes Addendum Addendum: Surgery Charges CPT - 16136 ICD-10 - E65, M79.3, L30.4, L73.2
[2022-11-09] MEDS: Lactated Ringers 1,000 ML 60 ML IV (11:51)
[2022-11-09] MEDS: oxyCODONE 5 MG Tablet 10 MG PO ×3 (12:37→22:28)
--- NOTE | 2022-11-09 15:01 | CASEMGMT ---
Discharge Planning A list of HH?providers including quality and resource use data and consistent with the patient's preferred geographic region, medical needs, and insurance network was created in CarePort Guide.? This list was provided to the RN NATHALIE. Ronda Nicole, Discharge Planning Asst.
[2022-11-09] MEDS: Juven (unflavored) Packet 1 PACKET PO (16:08)
[2022-11-09] MEDS: Clindamycin 600 MG/50 ML BAG 100 MG IV ×2 (16:08→22:27)
[2022-11-09] MEDS: Docusate Sodium 100 MG Capsule PO (22:28)
[2022-11-09] MEDS: Enoxaparin 40 MG/0.4 ML Syringe SC (22:35)
[2022-11-10 02:51] VITALS: BP 119/69; PULSE 72; RESP 15; TEMP 36.9; O2SAT 99
[2022-11-10] MEDS: oxyCODONE 5 MG Tablet 10 MG PO ×5 (02:53→20:03)
[2022-11-10] MEDS: Lactated Ringers 1,000 ML 60 ML IV ×2 (03:00→20:03)
[2022-11-10] MEDS: Clindamycin 600 MG/50 ML BAG 100 MG IV ×3 (05:40→21:07)
[2022-11-10] MEDS: Thyroid 60 MG Tablet PO (05:40)
[2022-11-10] MEDS: Ondansetron 4 MG/2 ML Vial IV ×2 (05:54→20:03)
[2022-11-10 06:38] LABS: Hemoglobin 11.6 g/dL (12.0-15.0); Mean Corp Hgb Conc 31.4 g/dL (32-36); Mean Corpuscular Hgb 27.7 pg (27.0-32.0); Mean Corpuscular Volume 88.3 fL (81-99); Mean Platelet Vol. 9.9 fl (6.2-12.0); Platelet Count 314 K/mm3 (150-450); RBC Distribution Width CV 13.2 % (11.6-14.6); RBC Distribution Width SD 42.7 fl (35.1-43.9); Red Blood Count 4.19 M/mm3 (4.2-5.4); White Blood Count 14.7 K/mm3 (4.4-11.0)
[2022-11-10 07:24] LABS: Anion Gap 4 (5-15); BUN 10 mg/dL (7-18); BUN/Creat Ratio 13.4 RATIO (10-20); Calcium,Total 8.6 mg/dL (8.5-10.1); Chloride 111 mmol/L (98-107); Creatinine, Serum 0.75 mg/dL (0.55-1.02); EST Glomerular Filtration Rate 92 mL/min (>60); Est Glom Filt Rate - Afr Amer 112 mL/min (>60); Estimated Creatinine Clearance 88.68 ml/min; Glucose 125 mg/dL (74-106); Potassium 3.5 mmol/L (3.5-5.1); Prealbumin 21.6 mg/dL (20.0-40.0); Sodium Level 140 mmol/L (136-145)
[2022-11-10 08:20] VITALS: BP 109/65; PULSE 80; RESP 16; TEMP 36.8; O2SAT 97
[2022-11-10] MEDS: Juven (unflavored) Packet 1 PACKET PO ×2 (08:32→17:33)
[2022-11-10] MEDS: HYDROmorphone 1 MG/ML Syringe IV (09:28)
[2022-11-10] MEDS: Enoxaparin 40 MG/0.4 ML Syringe SC ×2 (10:26→21:08)
[2022-11-10] MEDS: Docusate Sodium 100 MG Capsule PO ×2 (10:26→20:04)
--- NOTE | 2022-11-10 10:30 | WOUNDNOTE ---
wound photo: lower abdomen
--- NOTE | 2022-11-10 10:35 | CASEMGMT ---
RN NATHALIE Face to Face with patient for initial transition planning/care coordination assessment. RN CM introduced self and role at [facility]. Patient lying in bed, alert and oriented. Patient willing to participate in assessment and is able to answer all questions appropriately. Care providers, pharmacy, and demographics verified. Patient wishes to discharge home, she is aware that she will need [facility] for wound vac. Provided list created by dc hearing and speech assistant. Pt chose [facility] as first choice and states no further preference. Pt states her sig other is/was a medic and would be her teachable cg for her wound care. TC to Shirlene at [facility], referral made, will await acceptance. Pt requesting rx for shower chair as well. Patient states he has no further needs or concerns at this time. CM to follow for discharge planning needs that may arise. PCP:Emiliana Specialists:YVON Hollins Pharmacy:[facility] Insurance:[facility] Community Plan MARELY Prescription Benefit: yes LNOK:Ainsley and Kendell Cobb, parents; Dario Judd, sig other Living Arrangements:Pt lives in a two story home with 3 steps to enter with her sig other and 7 year old and 10 mo. old. Pt reports she was I in ADL's prior to surgery and her sig other is able to assist her post surgery. Pt denies concerns at home. Transportation: Pt drives self and denies concerns with transportation. Pt family is also able to transport her. DME:CPAP but does not use HHC:Denies SNF:Denies Disposition Plan: Home with HHC
--- NOTE | 2022-11-10 11:14 | CASEMGMT ---
[facility] HHC declined referral. Requested dc assistant women's soccer coach send referral to all [facility] agencies for accepting agency as pt did not have preference.
--- NOTE | 2022-11-10 11:37 | CASEMGMT ---
Discharge Planning HH referral sent via CarePort to DOROTHY, Viktor, Byron, Narendra, Angy, [facility] Ronda Nicole, Discharge Planning Asst.
[2022-11-10 13:36] VITALS: BP 113/59; PULSE 82; RESP 16; TEMP 37.2; O2SAT 98
--- NOTE | 2022-11-10 15:22 | CASEMGMT ---
Discharge Planning Patient has been declined by DOROTHY, Viktor, Angy, Narendra, Faheem Pl[facility]mer, Bernabe, [facility], [facility], [facility], and [facility]. Discharge Planning Asst.
--- NOTE | 2022-11-10 15:23 | WOUNDNOTE ---
Home VAC approved. still awaiting a home health agency that will accept patient for VAC changes. WADE Lao in to see patient. states if unable to get home health care, patient can get VAC changes at the wound center on Monday's and . Reviewed home VAC with patient and . reviewed canister change, charging VAC, how to return VAC, etc. all questions answered.
--- NOTE | 2022-11-10 15:37 | DCINST_ITS ---
Discharge Instructions Diet Discharge Diet: Carb Control Diet (high protein diet) Activity May resume sexual activity in: 4-6 weeks Lifting Restrictions: 15 lb weight lifting restriction Additional Activity Instructions:: Wear abdominal binder for compression. Dressing / Incision Call your doctor if your incision/area has: Sudden Increased Bleeding, Increased Pain/ Swelling, Increased Redness and Foul Smelling Discharge Call your doctor if you observe: Fever of 101 or Higher, Inability to urinate, Inability to have a bowel movement, Shortness of breath, Chest pain, Calf discomfort and Uncontrolled pain Additional Dressing/Incision Instructions:: Wound vac at 150 mmHg dressing change 3 times per week (next dressing on Monday, then can be M-W-F). At the time of the dressing change, wash wound with SOAP AND WATER. When patient is comfortable removing the wound vac dressing, she may remove it right before home health comes and get into the shower and wash with soap and water. Follow Up Care Please Follow Up With: Aman Hollins MD When: At [facility] on Monday November 14, 2022 at 3:00 pm. Their number is [phone]. Test Results: Test results from this visit will be discussed in further detail at your follow- up appointment, if applicable. Discharge Plan Admission Admit Date/Time: 11/09/22 10:36 Attending Provider: Aman Hollins Primary Care Provider: Og Hopson Discharge Orders/Prescriptions Prescriptions: New clindamycin HCl 300 mg capsule 300 mg PO TID 10 Days Qty: 30 0RF Acidophilus Capsule 5,000 mmu cells PO DAILY 15 Days Qty: 15 0RF oxycodone-acetaminophen [Percocet] 5-325 mg tablet 1 tab PO Q6H PRN (Reason: pain (scale score 7-10)) 7 Days Qty: 28 0RF diazepam [Valium] 5 mg tablet 5 mg PO BID PRN (Reason: muscle spasm) 7 Days Qty: 14 0RF docusate sodium [Colace] 100 mg capsule 100 mg PO DAILY 30 Days Qty: 30 0RF Continued nystatin [Nystop] 100,000 unit/gram powder 1 applic topical BID Qty: 45 7RF dextroamphetamine-amphetamine [Adderall] 30 mg tablet 30 mg PO DAILY dextroamphetamine-amphetamine [Adderall] 10 mg tablet 10 mg PO 1200 ropinirole 2 mg tablet 2 mg PO QHS PRN PRN (Reason: restless leg(s)) thyroid (pork) [Niva Thyroid] 60 mg tablet 60 mg PO DAILY nystatin-triamcinolone 100,000-0.1 unit/g-% cream 1 applic topical BID 7 Days Qty: 60 1RF Referrals / Follow Up: Og Hopson DO [Primary Care Provider] - Disposition Disposition (needs filled in before D/C Order can be placed): Home, Self Care
--- NOTE | 2022-11-10 15:39 | CASEMGMT ---
Discharge Planning [facility]. Ronda Nicole, Discharge Planning Asst.
[2022-11-10 15:41] VITALS: BP 122/45; PULSE 92; RESP 16; TEMP 36.7; O2SAT 98
--- NOTE | 2022-11-10 16:03 | CASEMGMT ---
Addendum entered by Shanique Esquivel 11/10/22 16:09: Provided pt with rx for shower chair per request. Original Note: TC to [facility], corporation secretary states they accept pt insurance. Referral sent via careport. Spoke with HAND TUFTER who is aware of difficutly setting up [facility]. Pt to stay for this set up. RN CM made pt aware of status of HHC referral.
--- NOTE | 2022-11-10 16:22 | PN.SURG_ITS ---
Subjective Subjective Postop #1 Resting quietly in bed. Objective Data Objective Data Vital Signs: Vital Signs Temp Pulse Resp BP Pulse Ox O2 Del Method O2 Flow Rate 98.1 F 92 16 122/45 H 98 Room Air 2 11/10/22 15:41 11/10/22 15:41 11/10/22 15:41 11/10/22 15:41 11/10/22 15:41 11/10/22 15:41 11/10/22 02:51 Oxygen Flow Rate (L/min) 2 Oxygen Delivery Method Room Air Weight: 244 lb 11.41 oz Body Mass Index (BMI) 42.0 Intake & Output: Intake and Output for Last 24 Hours 11/08/22 11/09/22 11/10/22 23:59 23:59 23:59 Intake Total 1832 / 2632 2559 / 2559 Output Total 1000 / 2100 1700 / 1700 Balance 832 / 532 859 / 859 Lab / Micro Data Attestation: I reviewed the patient's lab results. 11/10/22 06:15 11/10/22 06:15 Labs: Laboratory Results - last 24 hr 11/10/22 06:15: WBC 14.7 H, RBC 4.19 L, Hgb 11.6 L, Hct 37.0, MCV 88.3, MCH 27.7, MCHC 31.4 L, RDW Std Deviation 42.7, RDW Coeff of Sarika 13.2, Plt Count 314, MPV 9.9, Sodium 140, Potassium 3.5, Chloride 111 H, Carbon Dioxide 25.0, Anion Gap 4 L, BUN 10, Creatinine 0.75, Estim Creat Clear Calc 88.68, Est GFR (MDRD) Af Amer 112, Est GFR (MDRD) Non-Af 92, BUN/Creatinine Ratio 13.4, Glucose 125 H, Calcium 8.6, Prealbumin 21.6 Physical Exam Narrative PHYSICAL EXAMINATION General - Alert and oriented. HEENT - PERRL. EOMI. Lungs- Respirations regular. Heart - Regular rate Abdomen - Tender to palpation. Wound VAC dressing in place. She tolerated the placement well. Extremities - FROM. Assessment & Plan Assessment/Plan (1) Abdominal panniculus: (2) Panniculitis: (3) Hidradenitis: (4) Intertrigo: PLAN: Plan Patient states she is doing ok. She is having pain with movement but pain controlled with oral pain meds. Wound VAC in place at 150 mmHg. Wound VAC to be changed 3 times a week. Waiting for home health to be found. Continue to wear abdominal binder. Restrict lifting to 15 lbs. Cobb needs to be removed chris. Prealbumin 21.6. Encouraged increase protein intake to help with increased met abolic demands of wound healing. She is scheduled to be seen in the wound center on Monday11/14/22 at 3:[address] Hollins. Prescriptions sent to [facility] retail pharmacy. She may be discharged home once home health is found for wound VAC management.
[2022-11-10 19:57] VITALS: BP 109/63; PULSE 90; RESP 15; TEMP 38.1; O2SAT 93
[2022-11-10] MEDS: Acetaminophen 500 MG Tablet PO (21:06)
[2022-11-11 03:00] VITALS: BP 105/76; PULSE 83; RESP 14; TEMP 37; O2SAT 93
[2022-11-11] MEDS: oxyCODONE 5 MG Tablet 10 MG PO ×3 (03:07→15:17)
[2022-11-11] MEDS: Acetaminophen 500 MG Tablet PO ×2 (03:07→12:32)
[2022-11-11 04:20] LABS: Mucous, Urine 0 SEEN /hpf (<or=2+)
[2022-11-11 04:22] LABS: Color, Urine Yellow (Yellow); Glucose, Dipstick Normal (Normal); Ketone-Dipstick Negative (Negative); Leukocyte Esterase-Dipstick 500 /ul (Negative); Nitrite-Dipstick Negative (Negative); Occult Blood-Urine 150 /ul (Negative); Protein-Dipstick 30 mg/dl (Negative); Urine Bilirubin Dipstick Negative (Negative); Urine Clarity Clear (Clear); Urine Urobilinogen Normal (Normal)
[2022-11-11 04:40] LABS: Bacteria RARE /hpf (None Seen); Red Blood Cells-Urine 0-5 SEEN /hpf (0-5); Squamous Epithelial Cells - UA 0-5 SEEN /hpf (5-10); White Blood Cells 5-10 SEEN /hpf (0-5)
--- NOTE | 2022-11-11 05:35 | RAD_ITS ---
EXAM: XR CHEST, 1 VIEW CLINICAL INDICATION: Increased temp TECHNIQUE: Frontal view of the chest. COMPARISON: 2 view chest 10/21/2018 FINDINGS: LUNGS AND PLEURAL SPACES: Unremarkable. No consolidation or edema. No pneumothorax. No effusion. HEART: Unremarkable. Cardiac silhouette not enlarged. MEDIASTINUM: Central airways and mediastinal contour are unremarkable. BONES/JOINTS: Unremarkable. SOFT TISSUES: Unremarkable. RAD/Chest 1 View (Portable) IMPRESSION: No radiographic evidence of acute cardiopulmonary disease. Electronically Signed: Evin Chatman MD at 6:43 EDT ,
[2022-11-11] MEDS: Thyroid 60 MG Tablet PO (05:36)
[2022-11-11] MEDS: Clindamycin 600 MG/50 ML BAG 100 MG IV ×2 (05:36→13:02)
[2022-11-11 06:35] LABS: Absolute Lymphocyte Count 2.79 X10^3/uL (0.83-4.51); Absolute Neutrophil Count 8.5 X10^3/uL (2.0-7.7); Basophil# 0.05 X10^3/uL; Basophil% 0.4 % (0-1); Eosinophil# 0.03 X10^3/uL; Eosinophils% 0.2 % (0-5); Hematocrit 35.4 % (37-47); Hemoglobin 10.8 g/dL (12.0-15.0); Lymphocyte # 2.79 X10^3/ul (0.83-4.51); Lymphocyte % 22.2 % (19-41); Mean Corp Hgb Conc 30.5 g/dL (32-36); Mean Corpuscular Hgb 27.3 pg (27.0-32.0); Mean Corpuscular Volume 89.4 fL (81-99); Monocyte# 1.15 X10^3/uL; Monocyte% 9.1 % (0-10); NRBC Flagged by Analyzer 0 % (0-5); Neutrophil # 8.46 X10^3/uL (2.7-7.7); Neutrophil % 67.4 % (47-70); Platelet Count 290 K/mm3 (150-450); RBC Distribution Width CV 13.7 % (11.6-14.6); RBC Distribution Width SD 44.9 fl (35.1-43.9); Red Blood Count 3.96 M/mm3 (4.2-5.4); White Blood Count 12.6 K/mm3 (4.4-11.0)
[2022-11-11 07:03] LABS: Anion Gap 3 (5-15); BUN 14 mg/dL (7-18); BUN/Creat Ratio 21.3 RATIO (10-20); Calcium,Total 8.4 mg/dL (8.5-10.1); Chloride 104 mmol/L (98-107); Creatinine, Serum 0.66 mg/dL (0.55-1.02); EST Glomerular Filtration Rate 107 mL/min (>60); Est Glom Filt Rate - Afr Amer 130 mL/min (>60); Estimated Creatinine Clearance 100.78 ml/min; Glucose 123 mg/dL (74-106); Potassium 3.5 mmol/L (3.5-5.1); Sodium Level 134 mmol/L (136-145)
[2022-11-11 07:24] VITALS: BP 102/58; PULSE 76; RESP 16; TEMP 36.4; O2SAT 93
[2022-11-11] MEDS: Juven (unflavored) Packet 1 PACKET PO (07:29)
--- NOTE | 2022-11-11 09:18 | CASEMGMT ---
RYDER will only take if her PCP is from , [facility] and [facility] declined pt for HHC.
[2022-11-11] MEDS: Enoxaparin 40 MG/0.4 ML Syringe SC (09:28)
[2022-11-11] MEDS: Docusate Sodium 100 MG Capsule PO (09:32)
--- NOTE | 2022-11-11 11:07 | WOUNDNOTE ---
Wound VAC dressing remains intact with good seal noted at 150mmHg low continuous suction. Awaiting home health agency for VAC changes at home. pt will follow up at the wound healing center as well. pt states she feels she is moving better today with less discomfort.
[2022-11-11 12:27] VITALS: BP 107/65; PULSE 87; RESP 16; TEMP 36.9; O2SAT 95
--- NOTE | 2022-11-11 12:48 | CASEMGMT ---
Addendum entered by Shanique Esquivel 11/11/22 13:02: NADEGE ZELAYA into pt room, pt is aware [facility] was not able to be secured and that [facility] appts were set up for her and placed on her dc instructions. Wound nurse will speak with pt and family regarding vac care at home and troubleshooting. Pt denies further needs. Original Note: TC to [facility], set up appts for Monday at 9am with Tashia Bourne NP and 11/17 at 1pm for nurse visit for wound vac change. Added to dc instructions.
[2022-11-11] MEDS: Lactated Ringers 1,000 ML 60 ML IV (13:01)
--- NOTE | 2022-11-11 14:10 | PCM.PN.SRG ---
Subjective Subjective Postop #2 She had a temperature of 100.6 last night. No other elevated temperatures since then. She states she is tired. Pain controlled with oral pain meds. Objective Data Objective Data Vital Signs: Vital Signs Temp Pulse Resp BP Pulse Ox O2 Del Method O2 Flow Rate 98.4 F 87 16 107/65 95 Room Air 2 11/11/22 12:11/11/22 12:11/11/22 12:11/11/22 12:11/11/22 12:11/11/22 12:11/10/22 02:51 Oxygen Flow Rate (L/min) 2 Oxygen Delivery Method Room Air Weight: 244 lb 11.41 oz Body Mass Index (BMI) 42.0 Intake & Output: Intake and Output for Last 24 Hours 11/09/22 11/10/22 11/11/22 23:59 23:59 23:59 Intake Total 1832 / 2632 3659 / 4459 2250 / 2250 Output Total 1000 / 2100 1700 / 1700 Balance 832 / 532 1959 / 2759 2250 / 2250 Lab / Micro Data Attestation: I reviewed the patient's lab results. 11/11/22 06:16 11/11/22 06:16 Labs: Laboratory Results - last 24 hr 11/11/22 01:53: Urine Color Yellow, Urine Clarity Clear, Urine pH 6.0, Ur Specific Thornton 1.020, Urine Protein 30 H, Urine Glucose (UA) Normal, Urine Ketones Negative, Urine Occult Blood 150 H, Urine Nitrite Negative, Urine Bilirubin Negative, Urine Urobilinogen Normal, Ur Leukocyte Esterase 500 H, Urine RBC 0-5 SEEN, Urine WBC 5-10 SEEN, Ur Squamous Epith Cells 0-5 SEEN, Urine Bacteria RARE, Urine Mucus 0 SEEN 11/11/22 06:16: WBC 12.6 H, RBC 3.96 L, Hgb 10.8 L, Hct 35.4 L, MCV 89.4, MCH 27.3, MCHC 30.5 L, RDW Std Deviation 44.9 H, RDW Coeff of Sarika 13.7, Plt Count 290, MPV 10.0, Immature Gran % (Auto) 0.700, Neut % (Auto) 67.4, Lymph % (Auto) 22.2, Lumpkin % (Auto) 9.1, Eos % (Auto) 0.2, Baso % (Auto) 0.4, Absolute Neuts (auto) 8.5 H, Absolute Lymphs (auto) 2.79, Nucleated RBC % 0, Sodium 134 L, Potassium 3.5, Chloride 104, Carbon Dioxide 27.0, Anion Gap 3 L, BUN 14, Creatinine 0.66, Estim Creat Clear Calc 100.78, Est GFR (MDRD) Af Amer 130, Est GFR (MDRD) Non-Af 107, BUN/Creatinine Ratio 21.3 H, Glucose 123 H, Calcium 8.4 L Radiography Diagnostic Testing: Radiology Impression Chest X-Ray 11/11/22 05:35 IMPRESSION: No radiographic evidence of acute cardiopulmonary disease. Electronically Signed: Evin Chatman MD at 6:43 EDT , Physical Exam Narrative PHYSICAL EXAMINATION General - Alert and oriented. HEENT - PERRL. EOMI. Lungs- Respirations regular. Heart - Regular rate Abdomen - Wound VAC dressing in place, she is tolerating it well. Extremities - FROM. Assessment & Plan Assessment/Plan (1) Abdominal panniculus: (2) Panniculitis: (3) Hidradenitis: (4) Intertrigo: (5) UTI (urinary tract infection): PLAN: Plan Patient states she is doing ok. She is having pain with movement but pain controlled with oral pain meds. Wound VAC in place at 150 mmHg. Since unable to find home health, she will go to Wound center on Mondays and for a wound VAC change. Continue to wear abdominal binder. Restrict lifting to 15 lbs. She has UTI symptoms with elevated Leukocyte Esterase and Urine occult blood. Will switch her home antibiotic to Levaquin so it has urinary coverage. Cxry is clear. Stressed importance of using incentive spirometer, even at home. Encouraged her to be ambulating hourly while awake when she gets home. Increase her water intake due to her UTI. Prealbumin 21.6. Encouraged increase protein intake to help with increased metabolic demands of wound healing. She is scheduled to be seen in the wound center on Monday11/14/22 at 9:00 am. Prescriptions sent to [facility] retail pharmacy. She will be discharged home today.
--- NOTE | 2022-11-11 14:40 | WOUNDNOTE ---
Pt switched over to home VAC for discharge home. CM unable to find an accepting home health care agency. plan will be for patient to get VAC changes at the wound center on Monday's and '.
== END 2022-11-11 15:52 | disposition home or self-care (01) ==
LOC: SDC 11:39 → MS3 11:39
PROVIDERS: Nurse Practitioner Family; Admitting Provider Surgery; PCP Family Medicine; Referring Provider Surgery; Visit Provider Surgery
PROC: 0JB80ZZ Excision of Abdomen Subcutaneous Tissue and Fascia, Open Approach (ICD-10-PCS; CPT 15830; principal; 2022-11-09 07:15)
DX: M79.3 Panniculitis, unspecified (principal); L73.2 Hidradenitis suppurativa; L30.4 Erythema intertrigo; K21.9 Gastro-esophageal reflux disease without esophagitis; F41.9 Anxiety disorder, unspecified; F32.A Depression, unspecified; Z79.899 Other long term (current) drug therapy
CPT/HCPCS: 15830; 00802; 36415; 71045; 80048; 81001; 84134; 85025; 85027; 88305; 94668; 96365; 96366; 96372; 96375; 96376; 99221; J7120; G0378; J2405

== ENCOUNTER 2022-12-12 10:15 | Outpatient (RCR) | payer MEDICAID, SELFPAY ==
[2022-11-14 09:04] VITALS: BP 126/61; PULSE 105; RESP 16; TEMP 35.4
--- NOTE | 2022-11-14 12:54 | PCM.WC.HP ---
History of Present Illness Date of Service: 11/14/22 Chief Complaint: Abdominal panniculectomy History of Wound: 37 year old woman presents with worsening pain and redness and some odor in her abdominal wall skin crease. She has some intertrigo for which she has used powders and antifungals with minimal relief and no resolution. She recently gave 10 months ago. She also has bilateral inguinal hidradenitis but not bothering her at this time. She denies fever. She denies trauma. She denies recent infection. We have received medical approval for her panniculectomy. Surgery 11/09/22 - Abdominal panniculectomy. She was discharged home 11/11/22 with a wound VAC. Unable to find home health, so she is coming into the wound center twice a week for wound vac dressing changes. She developed a fever on 11/10/22, CXRY was negative but her urine had 500 Leukocyte Esterase High urine protein of 30. She was sent home with Levaquin upon discharge. Wound care - Wound VAC at 150 mmHg to be changed twice a week. Prealbumin on 11/10/22 - 21.6. She denies fever, chills, nausea and vomiting. She comes in today for further evaluation. Progress of Wound: Postop #5 days. She is not having issues with the wound vac except for having significant discomfort when removing it. There was adaptic placed in the base of the wound and since this was the first wound VAC change since it was placed, it was difficult to remove the adaptic and very painful. She is going through a canister a day with her drainage. She states her pain has been controlled. She has a skin tear from the drape on her lower left abdomen. [facility] Medical History Abdominal panniculus Advanced maternal age (AMA) in Alcohol use Anemia Anxiety and depression COVID CPAP (continuous positive airway pressure) dependence Fatigue Gastric reflux Goiter Jocelyn's disease Hidradenitis Hormone deficiency Hx of hypotension Hypothyroidism (acquired) Intertrigo Intradermal nevus of face Intradermal nevus of neck Intradermal nevus of torso Leg cramps Macrosomia of fetus affecting management of mother Migraine headache Migraine headache Non-smoker Panniculitis Rash Restless legs Rh negative status during Seasonal allergies Shortness of breath on exertion Supervision of high risk , unspecified, first trimester Thyroid disease Home Medications nystatin 100,000 unit/gram topical powder (Nystop) 1 applic topical BID #45 ea 03/11/22 [Rx Last Taken Unknown] nystatin-triamcinolone 100,000 unit/g-0.1 % topical cream 1 applic topical BID 7 days #60 grams 04/20/22 [Rx Last Taken Unknown] dextroamphetamine-amphetamine 10 mg tablet (Adderall) 10 mg PO 1200 10/31/22 [History Last Taken 11/08/22] dextroamphetamine-amphetamine 30 mg tablet (Adderall) 30 mg PO DAILY 10/31/22 [History Last Taken Unknown] ropinirole 2 mg tablet 2 mg PO QHS PRN PRN restless leg(s) 10/31/22 [History Last Taken Unknown] thyroid (pork) 60 mg tablet (Niva Thyroid) 60 mg PO DAILY 11/01/22 [History Last Taken Unknown] Lactobacillus acidophilus (Acidophilus capsule) 5,000 mmu cells PO DAILY 15 days #15 caps 11/10/22 [Rx Last Taken Unknown] diazepam 5 mg tablet (Valium) 5 mg PO BID PRN muscle spasm 7 days #14 tabs 11/10/22 [Rx Last Taken Unknown] docusate sodium 100 mg capsule (Colace) 100 mg PO DAILY 30 days #30 caps 11/10/22 [Rx Last Taken Unknown] oxycodone-acetaminophen 5 mg-325 mg tablet (Percocet) 1 tab PO Q6H PRN pain (scale score 7-10) 7 days #28 tabs 11/10/22 [Rx Last Taken Unknown] levofloxacin 500 mg tablet 500 mg PO DAILY 7 days #7 tabs 11/11/22 [Rx Last Taken Unknown] Allergy/AdvReac Type Severity Reaction Status Date / Time latex Allergy Intermediate body rash Verified 11/14/22 09:37 penicillin G Allergy Hives Verified 11/14/22 09:37 shellfish derived Allergy Rash Verified 11/14/22 09:37 sulfamethoxazole Allergy Anaphylaxis Verified 11/14/22 09:37 [From Bactrim] trimethoprim [From Bactrim] Allergy Anaphylaxis Verified 11/14/22 09:37 hydrocodone AdvReac Intermediate Nausea/Vom/ Verified 11/14/22 09:37 Diarrhea Family History Other Anemia Anesthesia complication Asthma CVA (cerebral vascular accident) Depression Diabetes Hypertension Thyroid disorder Surgical History H/O bilateral salpingectomy History of excision of lesion History of incision and drainage History of nasal surgery Hx of arthroscopy of right knee Hx of tonsillectomy Status post vaginal delivery Social History household members: spouse and children housing: house current occupational status: employed Smoking Status: Never smoker alcohol intake: current details: pre substance use type: does not use caffeine: Yes seatbelt use: always do you feel safe at home: Yes additional social history: Dario- works at [employer] patient works at a [employer] Constitutional Constitutional: Reports systems reviewed and no addt'l complaints, except as documented; Denies fever(s) Eyes Eyes: Reports systems reviewed and no addt'l complaints, except as documented ENT HEENT: Reports systems reviewed and no addt'l complaints, except as documented Cardiovascular Cardiovascular: Reports systems reviewed and no addt'l complaints, except as documented Respiratory/Chest Respiratory/Chest: Denies cough, difficulty clearing secretions or dyspnea Gastrointestinal Gastrointestinal: Denies constipation, diarrhea or nausea Genitourinary Genitourinary: Denies burning urination or difficulty urinating Musculoskeletal Musculoskeletal: Reports systems reviewed and no addt'l complaints, except as documented Integumentary Integumentary: Reports as per HPI and wounds Neurologic Neurologic: Reports none Psychiatric Psychiatric: Reports none Vital Signs Vital Signs Vital Signs: 11/14/22 09:04 Temperature 95.7 F L Temperature Source Temporal Pulse Rate 105 H Respiratory Rate 16 Blood Pressure 126/61 H Blood Pressure Mean 82 Blood Pressure Source Monitor Blood Pressure Position Sitting Blood Pressure Location Left Arm Oxygen Delivery Method Room Air Physical Exam Const alert and oriented x3 General Appearance: cooperative HEENT normocephalic Head and Scalp: atraumatic Eyes General Eye: normal appearance of both eyes Neck full ROM Resp normal respiratory effort, normal air movement and clear to auscultation bilaterally Effort and Inspection: able to speak in complete sentences Cardio regular rate and regular rhythm GI soft to palpation Back/Spine normal ROM Extremity full ROM and normal capillary refill Skin Wound Narrative: Lower abdominal panniculectomy wound is stable, no active bleeding, wound bed is beefy pink. There are a few areas of fat necrosis, that we will monitor. She has a skin tear from the drape on her left abdomen above the wound. Neuro oriented x3 and CN's II-XII intact bilaterally Psych mental status grossly normal, thought process normal and cooperative Debridement Note Debridement Note No debridement was completed: No debridement was completed today Post-Debridement Measurements and Additional Note: Post-Debridement Measurements/Treatment - Nurse 1 - General Ulcer Assessment Start: 11/14/22 09:03 Freq: Status: Active Protocol: SHAMIKA.LOWROSIBELT Activity Type Activity Date Activity User E-sign Co-sign Detail Recorded Client Recorded Date Recorded By Document 11/14/22 09:04 [facility] Desktop 11/14/22 09:36 [facility] 11/14/22 09:04 - Today's Visit Information Type of service Initial Visit Arrival Mode Ambulatory Transfer Assistance None Accompanied by Patient Identification Verified (Name & Yes ) Patient Requires Transmission-Based No Precautions Height and Weight Height 5 ft 4 in Vital Signs Temperature (97.8 F-99.1 F) 95.7 F L Temperature Source Temporal Pulse Rate (60-100) 105 H Pulse Location Monitor Respiratory Rate (12-18) 16 Respiratory rate source Observation Oxygen Delivery Method Room Air Blood Pressure (90/60-120/80) 126/61 H Blood Pressure Mean 82 Source Monitor Position Sitting Blood Pressure Location Left Arm History Since Last Visit- (Skip if this is Patient's initial visit) Left Footwear Regular Shoe Right Footwear Regular Shoe Pain Scale: 0-10 Numeric Is Patient Pain Free? 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 Required No Able to Read Yes Able to Write Yes Communication Tools None Right Hearing Abillity Normal Left Hearing Abillity Normal Visual Assistive Devices None Teaching Assessment Preferences Verbal,Written, Audio/Visual, Demonstration Barriers to Learning None Readiness To Learn Excellent Willingness to Engage in Self Management High Activies Readiness to Engage in Self Management High Activities Anxiety Level Calm Cooperation Cooperative Perception Coherent Interest in Health Problem Asks Questions Education Importance Acknowledges Need Does Patient Smoke tobacco or other No substances Smoking Status Never smoker Is Patient Diabetic No Functional Assessment Recent Decline in Ability to Perform Denies Any Declines Teaching: Wound Center *Welcome to the Wound Center -Person Taught Patient, Significant Other -Teaching Method Discussion -Response to teaching Verbalize understanding Welcome to the Wound Care Center Vietnamese WC - Nurse 1 - General Ulcer Measurement Start: 11/14/22 09:03 Freq: Status: Active Protocol: Activity Type Activity Date Activity User E-sign Co-sign Detail Recorded Client Recorded Date Recorded By Document 11/14/22 09:04 [facility] Desktop 11/14/22 09:36 [facility] 11/14/22 09:04 Wound Center Nurse 1 #1- ABDOMEN POST OP -Combined with other wound No -Current Size (cm) - Length 2.3 -Current Size (cm) - Width 65.4 -Current Size (cm) - Depth 6.8 -Total Square Cm 150.42 -Date of Last Picture (Recall this 11/14/22 field) -Photo Taken Yes -Epithelialization None Present -Exudate Amt Large -Exudate Type Sanguineous -Wound Margin Distinct, Outline Attached -Granulation Amt Medium (34-66%) -Granulation Quality Red -Slough/Fibrin Yes -Necrosis Amt Medium (34-66%) -Necrotic Tissue Type Adherent Slough -Texture (Hayley-wound Skin Appearance) Assessed -Moisture (Hayley-wound Skin Appearance) Assessed -Color (Hayley-wound Skin Appearance) Assessed -Temperature (Hayley-wound Skin No Abnormality Appearance) (Pt Warm) -Tenderness on Palpation (Hayley-wound No Skin Appearance) -Ulcer Cleansing Soap and Water -Foul Odor after Cleansing No -Anesthetic Used 4% Lidocaine Solution - Nurse 2 - General Ulcer CM Notes Start: 11/14/22 09:03 Freq: Status: Active Protocol: Activity Type Activity Date Activity User E-sign Co-sign Detail Recorded Client Recorded Date Recorded By Document 11/14/22 09:59 Laptop 11/14/22 10:00 11/14/22 09:59 Wound Center Nurse 2 -Correct Patient No -Correct Side, Site, Position No -Correct Procedure No -Procedure Performed No -Wound/Ulcer Outcome Not Healed Pain Scale: 0-10 Numeric Is Patient Pain Free? Yes WC - Nurse 3 - General Ulcer D/C NN Start: 11/14/22 09:03 Freq: Status: Active Protocol: Activity Type Activity Date Activity User E-sign Co-sign Detail Recorded Client Recorded Date Recorded By Document 11/14/22 11:28 [facility] Desktop 11/14/22 11:29 [facility] 11/14/22 11:28 Wound Care Center Nurse 3 #1- ABDOMEN POST OP -Ulcer Cleansing Rinsed/ Irrigated with Saline -Foul Odor after Cleansing No -Negative Pressure Wound Therapy Continue -Setting (mmHg) 150 -Negative Pressure is Continuous -NPWT Application Charge NPWT > 50 sq cm ($) Treatment Response Procedure Tolerated Well Pain Scale: 0-10 Numeric Is Patient Pain Free? Yes WC - Visit Discharge Discharge Condition Stable Ambulatory Status Ambulatory Transportation Private Auto Accompanied by husb Charges/Coding Procedures Integumentary [id number]: [id number] Global Visit Assessment/Plan Assessment/Plan (1) Abdominal panniculus: CODE(S): E65 - Localized adiposity (2) Panniculitis: CODE(S): M79.3 - Panniculitis, unspecified (3) Intertrigo: CODE(S): L30.4 - Erythema intertrigo (4) Hidradenitis: CODE(S): L73.2 - Hidradenitis suppurativa (5) Status post panniculectomy: CODE(S): Z98.890 - Other specified postprocedural states PLAN: Plan Patient evaluated at the wound healing center today. Wound care - Wound VAC at 150 mmHg to be changed on Monday and . She will come into the wound center for the wound VAC dressing changes since unable to obtain home health. At the time of the wound VAC dressing changes wash the wound and hayley wound with soap and water. Encouraged high protein diet to help with wound healing. She is to continue the Levaquin until it is completed. Follow up one week. for nurse visit.
[2022-11-17 13:32] VITALS: BP 145/70; PULSE 72; RESP 18; TEMP 36.1
[2022-11-21 09:25] VITALS: BP 119/68; PULSE 91; RESP 16; TEMP 36.1
--- NOTE | 2022-11-21 11:21 | PCM.WC.PN ---
History of Present Illness Date of Service: 11/21/22 Chief Complaint: Abdominal panniculectomy History of Wound: 37 year old woman presents with worsening pain and redness and some odor in her abdominal wall skin crease. She has some intertrigo for which she has used powders and antifungals with minimal relief and no resolution. She recently gave 10 months ago. She also has bilateral inguinal hidradenitis but not bothering her at this time. She denies fever. She denies trauma. She denies recent infection. We have received medical approval for her panniculectomy. Surgery 11/09/22 - Abdominal panniculectomy. She was discharged home 11/11/22 with a wound VAC. Unable to find home health, so she is coming into the wound center twice a week for wound vac dressing changes. She developed a fever on 11/10/22, CXRY was negative but her urine had 500 Leukocyte Esterase High urine protein of 30. She was sent home with Levaquin upon discharge. Wound care - Wound VAC at 150 mmHg to be changed twice a week. Prealbumin on 11/10/22 - 21.6. She denies fever, chills, nausea and vomiting. She comes in today for further evaluation. Progress of Wound: She is tolerating her wound VAC well. She understandably has increased pain with wound VAC dressing changes. She states that her drainage is starting to slow down to only needing to change the canister every 1-1.5 days. Wound bed is a nice beefy pink. There are a couple areas of fat necrosis. Objective Data Objective Data Vital Signs: Vital Signs Temp Pulse Resp BP O2 Del Method 97 F L 91 16 119/68 Room Air 11/21/22 09:25 11/21/22 09:25 11/21/22 09:25 11/21/22 09:25 11/21/22 09:25 Oxygen Delivery Method Room Air Charges/Coding Procedures Integumentary 111xxx-[id number]: [id number] Global Visit Debridement Note Debridement Note Wound debrided: Lower abdominal wound Laterality: Not Applicable Type of Debridement: Excisional debridement Anesthesia Used: 4% Lidocaine Solution and 5% Lidocaine Gel Depth: Down to and including healthy tissue and in the subcutaneous layer Percentage of wound debrided: 100 Instrument Used: 7mm curette Tissue Removed: Non viable tissue and slough Severity: Fat Layer Exposed Amount of bleeding with debridement: Mild Bleeding Controlled with: Pressure and Compression and gauze Patient tolerated procedure: Patient tolerated procedure well Post-Debridement Measurements and Additional Note: Post-Debridement Measurements/Treatment - Nurse 1 - General Ulcer Assessment Start: 11/14/22 09:03 Freq: Status: Active Protocol: FRANTZ Activity Type Activity Date Activity User E-sign Co-sign Detail Recorded Client Recorded Date Recorded By Document 11/14/22 09:04 [facility] Desktop 11/14/22 09:36 BMF Document 11/17/22 13:32 RB Desktop 11/17/22 13:34 RB Document 11/21/22 09:25 BM Desktop 11/21/22 09:46 BMF 11/14/22 11/17/22 11/21/22 09:04 13:32 09:25 - Today's Visit Information Type of service Initial Visit Follow-up Visit Follow-up Visit (Physician/RAILROAD MECHANIC (Physician/RAILROAD MECHANIC ) ) Arrival Mode Ambulatory Ambulatory Ambulatory Transfer Assistance None None None Accompanied by Patient Identification Verified (Name & Yes Yes Yes ) Patient Requires Transmission-Based No No No Precautions Height and Weight Height 5 ft 4 in Vital Signs Temperature (97.8 F-99.1 F) 95.7 F L 97 F L 97 F L Temperature Source Temporal Temporal Temporal Pulse Rate (60-100) 105 H 72 91 Pulse Location Monitor Monitor Monitor Respiratory Rate (12-18) 16 18 16 Respiratory rate source Observation Observation Observation Oxygen Delivery Method Room Air Room Air Blood Pressure (90/60-120/80) 126/61 H 145/70 H 119/68 Blood Pressure Mean (mm Hg) 82 95 85 Source Monitor Monitor Monitor Position Sitting Semi-Fowlers Sitting Blood Pressure Location Left Arm Left Arm Left Arm History Since Last Visit- (Skip if this is Patient's initial visit) Have you changed medications since your No No last visit? Any new allergies or adverse reactions No No Had a fall/change in ADL's that may No No increase risk of falls Signs or symptoms of abuse and/or No No neglect since last visit Have you been in the hospital since your No No last visit? Has dressing in place as prescribed Yes Yes Has compression in place as prescribed No N/A Has offloadiing in place as prescribed No N/A Experienced any changes in pain level or No No management Left Footwear Regular Shoe Regular Shoe Right Footwear Regular Shoe Regular Shoe Pain Scale: 0-10 Numeric Is Patient Pain Free? No Yes Yes abdomen -Description Tightness -Intensity 10 -Duration (hours) Acute -Pain Behavior Withdrawal from Touch,Facial Grimacing -Pain Aggravating Factors Sitting -Alleviating Factors/Interventions Distraction, Will continue to monitor, Patient denies need for intervention, Emotional Support -Comments took 2 pain pills prior to visit Communication Assessment Preferred language Bulgarian Cross Tie Maker Required No Able to Read Yes Able to Write Yes Communication Tools None Right Hearing Abillity Normal Left Hearing Abillity Normal Visual Assistive Devices None Teaching Assessment Preferences Verbal,Written, Audio/Visual, Demonstration Barriers to Learning None Readiness To Learn Excellent Willingness to Engage in Self Management High Activies Readiness to Engage in Self Management High Activities Anxiety Level Calm Cooperation Cooperative Perception Coherent Interest in Health Problem Asks Questions Education Importance Acknowledges Need Does Patient Smoke tobacco or other No substances Smoking Status Never smoker Is Patient Diabetic No Functional Assessment Recent Decline in Ability to Perform Denies Any Declines Teaching: Wound Center *Welcome to the Wound Center -Person Taught Patient, Significant Other -Teaching Method Discussion -Response to teaching Verbalize understanding Welcome to the Wound Care Center English WICK - Nurse 1 - General Ulcer Measurement Start: 11/14/22 09:03 Freq: Status: Active Protocol: Activity Type Activity Date Activity User E-sign Co-sign Detail Recorded Client Recorded Date Recorded By Document 11/14/22 09:04 [facility] Desktop 11/14/22 09:36 [facility] Document 11/17/22 13:32 RB Desktop 11/17/22 13:34 RB Document 11/21/22 09:25 [facility] Desktop 11/21/22 09:46 [facility] 11/14/22 11/17/22 11/21/22 09:04 13:32 09:25 Wound Center Nurse 1 #1- ABDOMEN POST OP -Combined with other wound No No -Current Size (cm) - Length 2.3 66.5 -Current Size (cm) - Width 65.4 5.3 -Current Size (cm) - Depth 6.8 5.3 -Total Square Cm 150.42 352.45 -Date of Last Picture (Recall this 11/14/22 11/21/22 field) -Photo Taken Yes Yes -Epithelialization None Present Small 1-33% -Tunneling No -Undermining/Tunneling No -Circular Undermining No -Exudate Amt Large Large Large -Exudate Type Sanguineous Serosanguineous Serosanguineous -Wound Margin Distinct, Distinct, Distinct, Outline Outline Outline Attached Attached Attached -Granulation Amt Medium (34-66%) Large (67-100%) Large (67-100%) -Granulation Quality Red Kirklin,Red Red -Slough/Fibrin Yes Yes -Necrosis Amt Medium (34-66%) Small (1-33%) Small (1-33%) -Necrotic Tissue Type Adherent Slough Adherent Slough Adherent Slough -Structure Exposed N/A -Texture (Dhiraj-wound Skin Appearance) Assessed Assessed Assessed -Moisture (Dhiraj-wound Skin Appearance) Assessed Assessed Assessed -Color (Dhiraj-wound Skin Appearance) Assessed Assessed Assessed -Temperature (Dhiraj-wound Skin No Abnormality No Abnormality No Abnormality Appearance) (Pt Warm) (Pt Warm) (Pt Warm) -Tenderness on Palpation (Dhiraj-wound No No No Skin Appearance) -Ulcer Cleansing Soap and Water Wound Cleanser Soap and Water -Foul Odor after Cleansing No No No -Anesthetic Used 4% Lidocaine 4% Lidocaine Solution Solution WC - Nurse 2 - General Ulcer CM Notes Start: 11/14/22 09:03 Freq: Status: Active Protocol: Activity Type Activity Date Activity User E-sign Co-sign Detail Recorded Client Recorded Date Recorded By Document 11/14/22 09:59 Movable Laptop 11/14/22 10:00 Document 11/21/22 10:07 Laptop 11/21/22 10:09 11/14/22 11/21/22 09:59 10:07 Wound Center Nurse 2 #1- ABDOMEN POST OP -Time 10:07 -Correct Patient No Yes -Correct Side, Site, Position No Yes -Correct Procedure No Yes -Procedure Performed No Yes -Type of Procedure Debridement -Clinical Debridement Subcutaneous -Tissue Removed Subcutaneous -Post Debridement (cm) - Length 7 -Post Debridement (cm) - Width 67 -Post Debridement (cm) - Depth 7 -Total Square (Post) (cm) 469 -Area of Debridement (cm) - Length 7 -Area of Debridement (cm) - Width 67 -Total Square (Area) (cm) 469 -Tunneling No -Undermining/Tunneling No -Circular Undermining No -Wound/Ulcer Outcome Not Healed Not Healed -Ulcer Cleansing Rinsed/ Irrigated with Saline -Foul Odor after Cleansing No -Bioengineered Tissue No -Bleeding Controlled with Pressure -Treatment Response Procedure Tolerated Well -Offloading No -Debridement - Subq, 1st 20sq cm Yes -Debridement, SubQ, ea addt'l 20sq cm 23 or part thereof Pain Scale: 0-10 Numeric Is Patient Pain Free? Yes Yes WC - Nurse 3 - General Ulcer D/C NN Start: 11/14/22 09:03 Freq: Status: Active Protocol: Activity Type Activity Date Activity User E-sign Co-sign Detail Recorded Client Recorded Date Recorded By Document 11/14/22 11:28 BMF Desktop 11/14/22 11:29 BMF Document 11/17/22 13:32 RB Desktop 11/17/22 13:34 RB Document 11/21/22 10:12 DL Desktop 11/21/22 10:14 DL 11/14/22 11/17/22 11/21/22 11:28 13:32 10:12 Wound Care Center Nurse 3 #1- ABDOMEN POST OP -Ulcer Cleansing Rinsed/ Wound Cleanser Soap and Water Irrigated with Saline -Foul Odor after Cleansing No No -Negative Pressure Wound Therapy Continue Continue Continue -Setting (mmHg) 150 150 150 -Negative Pressure is Continuous Continuous Continuous -NPWT Application Charge NPWT > 50 sq cm NPWT > 50 sq cm NPWT & ($) ($) Debridement (nc ) Treatment Response Procedure Procedure Procedure Tolerated Well Tolerated Well Tolerated Well Vital Signs Temperature (97.8 F-99.1 F) 97 F L Temperature Source Temporal Pulse Rate (60-100) 72 Pulse Location Monitor Respiratory Rate (12-18) 18 Respiratory rate source Observation Blood Pressure (90/60-120/80) 145/70 H Blood Pressure Mean (mm Hg) 95 Source Monitor Position Semi-Fowlers Blood Pressure Location Left Arm Pain Scale: 0-10 Numeric Is Patient Pain Free? Yes Yes Yes WC - Visit Discharge Discharge Condition Stable Stable Stable Ambulatory Status Ambulatory Ambulatory Ambulatory Transportation Private Auto Private Auto Private Auto Accompanied by marla Medication Reconcilliation completed & No provided to patient/care provider Clinical Summary of Care Provided Yes Notes: abdominal binder Assessment/Plan Assessment/Plan (1) Open wound, abdominal wall, lateral: CODE(S): S31.109A - Unspecified open wound of abdominal wall, unspecified quadrant without penetration into peritoneal cavity, initial encounter (2) Abdominal panniculus: CODE(S): E65 - Localized adiposity (3) Panniculitis: CODE(S): M79.3 - Panniculitis, unspecified (4) Intertrigo: CODE(S): L30.4 - Erythema intertrigo (5) Hidradenitis: CODE(S): L73.2 - Hidradenitis suppurativa (6) Status post panniculectomy: CODE(S): Z98.890 - Other specified postprocedural states PLAN: Plan Patient evaluated at the wound healing center today. Wound care - Wound VAC at 150 mmHg to be changed on Monday and . She will come into the wound center for the wound VAC dressing changes since unable to obtain home health. At the time of the wound VAC dressing changes wash the wound and dhiraj wound with soap and water. Encouraged high protein diet to help with wound healing. She completed the Levaquin. Renewed Percocet (21 tabs) and Valium (14 tabs). PDMP reviewed. Follow up one week. for nurse visit.
[2022-11-28 09:59] VITALS: BP 138/78; PULSE 108; RESP 16; TEMP 36
--- NOTE | 2022-11-28 12:00 | PCM.WC.PN ---
History of Present Illness Date of Service: 11/28/22 Chief Complaint: Abdominal panniculectomy History of Wound: 37 year old woman presents with worsening pain and redness and some odor in her abdominal wall skin crease. She has some intertrigo for which she has used powders and antifungals with minimal relief and no resolution. She recently gave 10 months ago. She also has bilateral inguinal hidradenitis but not bothering her at this time. She denies fever. She denies trauma. She denies recent infection. We have received medical approval for her panniculectomy. Surgery 11/09/22 - Abdominal panniculectomy. She was discharged home 11/11/22 with a wound VAC. Unable to find home health, so she is coming into the wound center twice a week for wound vac dressing changes. She developed a fever on 11/10/22, CXRY was negative but her urine had 500 Leukocyte Esterase High urine protein of 30. She was sent home with Levaquin upon discharge. Wound care - Dakins moistened gauze covered with ABD/super absorber. Wound VAC holiday Prealbumin on 11/10/22 - 21.6. She denies fever, chills, nausea and vomiting. She comes in today for further evaluation. Progress of Wound: She developed pain with the wound VAC removal last . A wound culture was obtained at that time and the wound VAC was placed on hold. She has been doing Dakins 0.25% moistened gauze dressing changes. The wound is beefy pink. There are no longer any areas of fat necrosis. Her dhiraj wound is clearing up with the daily dressing changes and being able to shower daily. Objective Data Objective Data Vital Signs: Vital Signs Temp Pulse Resp BP O2 Del Method 96.8 F L 108 H 16 138/78 H Room Air 11/28/22 09:59 11/28/22 09:59 11/28/22 09:59 11/28/22 09:59 11/28/22 09:59 Oxygen Delivery Method Room Air Lab / Micro Data Micro: Microbiology 11/24/22 14:45 Wound - Abdominal Gram Stain - Final 11/24/22 14:45 Wound - Abdominal Wound Culture - Final Staphylococcus aureus Enterococcus faecalis Corynebacterium striatum 11/24/22 14:45 Wound - Abdominal Anaerobic Culture - Preliminary Checking for anaerobes, further studies to follow. Charges/Coding Procedures Integumentary [id number]: [id number] Global Visit Debridement Note Debridement Note Wound debrided: Lower abdominal wound Laterality: Not Applicable Type of Debridement: Excisional debridement Anesthesia Used: 4% Lidocaine Solution and 5% Lidocaine Gel Depth: Down to and including healthy tissue and in the subcutaneous layer Percentage of wound debrided: 100 Instrument Used: 7mm curette Tissue Removed: Non viable tissue and slough Severity: Fat Layer Exposed Amount of bleeding with debridement: Mild Bleeding Controlled with: Pressure and Compression and gauze Patient tolerated procedure: Patient tolerated procedure well Post-Debridement Measurements and Additional Note: Post-Debridement Measurements/Treatment - Nurse 1 - General Ulcer Assessment Start: 11/14/22 09:03 Freq: Status: Active Protocol: FRANTZ Activity Type Activity Date Activity User E-sign Co-sign Detail Recorded Client Recorded Date Recorded By Document 11/14/22 09:04 BMF Desktop 11/14/22 09:36 [facility] Document 11/17/22 13:32 RB Desktop 11/17/22 13:34 RB Document 11/21/22 09:25 BMF Desktop 11/21/22 09:46 [facility] Document 11/24/22 15:08 JF Desktop 11/24/22 15:18 Document 11/28/22 09:59 [facility] Desktop 11/28/22 10:05 F 11/14/22 11/17/22 11/21/22 09:04 13:32 09:25 - Today's Visit Information Type of service Initial Visit Follow-up Visit Follow-up Visit (Physician/[facility] ROOM (Physician/[facility] ROOM ) ) Arrival Mode Ambulatory Ambulatory Ambulatory Transfer Assistance None None None Accompanied by Patient Identification Verified (Name & Yes Yes Yes ) Patient Requires Transmission-Based No No No Precautions Height and Weight Height 5 ft 4 in Vital Signs Temperature (97.8 F-99.1 F) 95.7 F L 97 F L 97 F L Temperature Source Temporal Temporal Temporal Pulse Rate (60-100) 105 H 72 91 Pulse Location Monitor Monitor Monitor Respiratory Rate (12-18) 16 18 16 Respiratory rate source Observation Observation Observation Oxygen Delivery Method Room Air Room Air Blood Pressure (90/60-120/80) 126/61 H 145/70 H 119/68 Blood Pressure Mean (mm Hg) 82 95 85 Source Monitor Monitor Monitor Position Sitting Semi-Fowlers Sitting Blood Pressure Location Left Arm Left Arm Left Arm History Since Last Visit- (Skip if this is Patient's initial visit) Have you changed medications since your No No last visit? Any new allergies or adverse reactions No No Had a fall/change in ADL's that may No No increase risk of falls Signs or symptoms of abuse and/or No No neglect since last visit Have you been in the hospital since your No No last visit? Has dressing in place as prescribed Yes Yes Has compression in place as prescribed No N/A Has offloadiing in place as prescribed No N/A Experienced any changes in pain level or No No management Left Footwear Regular Shoe Regular Shoe Right Footwear Regular Shoe Regular Shoe Pain Scale: 0-10 Numeric Is Patient Pain Free? No Yes Yes abdomen -Description Tightness -Intensity 10 -Duration (hours) Acute -Pain Behavior Withdrawal from Touch,Facial Grimacing -Pain Aggravating Factors Sitting -Alleviating Factors/Interventions Distraction, Will continue to monitor, Patient denies need for intervention, Emotional Support -Comments took 2 pain pills prior to visit Communication Assessment Preferred language [place] [employer] Required No Able to Read Yes Able to Write Yes Communication Tools None Right Hearing Abillity Normal Left Hearing Abillity Normal Visual Assistive Devices None Teaching Assessment Preferences Verbal,Written, Audio/Visual, Demonstration Barriers to Learning None Readiness To Learn Excellent Willingness to Engage in Self Management High Activies Readiness to Engage in Self Management High Activities Anxiety Level Calm Cooperation Cooperative Perception Coherent Interest in Health Problem Asks Questions Education Importance Acknowledges Need Does Patient Smoke tobacco or other No substances Smoking Status Never smoker Is Patient Diabetic No Functional Assessment Recent Decline in Ability to Perform Denies Any Declines Teaching: Wound Center *Welcome to the Wound Center -Person Taught Patient, Significant Other -Teaching Method Discussion -Response to teaching Verbalize understanding Welcome to the Wound Care Center [place] 11/24/22 11/28/22 15:08 09:59 WC - Today's Visit Information Type of service Nurse-only Follow-up Visit Visit (Physician/[facility] ROOM ) Arrival Mode Ambulatory Ambulatory Transfer Assistance None Accompanied by Patient Identification Verified (Name & Yes Yes ) Patient Requires Transmission-Based No No Precautions Height and Weight Height Vital Signs Temperature (97.8 F-99.1 F) 96.8 F L Temperature Source Temporal Pulse Rate (60-100) 108 H Pulse Location Monitor Respiratory Rate (12-18) 16 Respiratory rate source Observation Oxygen Delivery Method Room Air Blood Pressure (90/60-120/80) 138/78 H Blood Pressure Mean (mm Hg) 98 Source Monitor Position Sitting Blood Pressure Location Left Arm History Since Last Visit- (Skip if this is Patient's initial visit) Have you changed medications since your No last visit? Any new allergies or adverse reactions No Had a fall/change in ADL's that may No increase risk of falls Signs or symptoms of abuse and/or No neglect since last visit Have you been in the hospital since your No last visit? Has dressing in place as prescribed Yes Has compression in place as prescribed Yes Has offloadiing in place as prescribed N/A Experienced any changes in pain level or No management Left Footwear Regular Shoe Regular Shoe Right Footwear Regular Shoe Regular Shoe Pain Scale: 0-10 Numeric Is Patient Pain Free? Yes Yes abdomen -Description -Intensity -Duration (hours) -Pain Behavior -Pain Aggravating Factors -Alleviating Factors/Interventions -Comments Communication Assessment Preferred speech language specialist Required Able to Read Able to Write Communication Tools Right Hearing Abillity Left Hearing Abillity Visual Assistive Devices Teaching Assessment Preferences Barriers to Learning Readiness To Learn Willingness to Engage in Self Management Activies Readiness to Engage in Self Management Activities Anxiety Level Cooperation Perception Interest in Health Problem Education Importance Does Patient Smoke tobacco or other substances Smoking Status Is Patient Diabetic Functional Assessment Recent Decline in Ability to Perform Teaching: Wound Center *Welcome to the Wound Center -Person Taught -Teaching Method -Response to teaching Welcome to the Wound Care Center WC - Nurse 1 - General Ulcer Measurement Start: 11/14/22 09:03 Freq: Status: Active Protocol: Activity Type Activity Date Activity User E-sign Co-sign Detail Recorded Client Recorded Date Recorded By Document 11/14/22 09:04 BMF Desktop 11/14/22 09:36 BMF Document 11/17/22 13:32 RB Desktop 11/17/22 13:34 RB Document 11/21/22 09:25 BMF Desktop 11/21/22 09:46 BMF Document 11/24/22 15:08 JF Desktop 11/24/22 15:18 JF Document 11/28/22 09:59 BMF Desktop 11/28/22 10:05 BMF 11/14/22 11/17/22 11/21/22 09:04 13:32 09:25 Wound Center Nurse 1 #1- ABDOMEN POST OP -Combined with other wound No No -Current Size (cm) - Length 2.3 66.5 -Current Size (cm) - Width 65.4 5.3 -Current Size (cm) - Depth 6.8 5.3 -Total Square Cm 150.42 352.45 -Date of Last Picture (Recall this 11/14/22 11/21/22 field) -Photo Taken Yes Yes -Epithelialization None Present Small 1-33% -Tunneling No -Undermining/Tunneling No -Circular Undermining No -Exudate Amt Large Large Large -Exudate Type Sanguineous Serosanguineous Serosanguineous -Wound Margin Distinct, Distinct, Distinct, Outline Outline Outline Attached Attached Attached -Granulation Amt Medium (34-66%) Large (67-100%) Large (67-100%) -Granulation Quality Red [place],Red Red -Slough/Fibrin Yes Yes -Necrosis Amt Medium (34-66%) Small (1-33%) Small (1-33%) -Necrotic Tissue Type Adherent Slough Adherent Slough Adherent Slough -Structure Exposed N/A -Texture (Dhiraj-wound Skin Appearance) Assessed Assessed Assessed -Moisture (Dhiraj-wound Skin Appearance) Assessed Assessed Assessed -Color (Dhiraj-wound Skin Appearance) Assessed Assessed Assessed -Temperature (Dhiraj-wound Skin No Abnormality No Abnormality No Abnormality Appearance) (Pt Warm) (Pt Warm) (Pt Warm) -Tenderness on Palpation (Dhiraj-wound No No No Skin Appearance) -Ulcer Cleansing Soap and Water Wound Cleanser Soap and Water -Foul Odor after Cleansing No No No -Anesthetic Used 4% Lidocaine 4% Lidocaine Solution Solution -Wound Comment(s) 11/24/22 11/28/22 15:08 09:59 Wound Center Nurse 1 #1- ABDOMEN POST OP -Combined with other wound No No -Current Size (cm) - Length 6 -Current Size (cm) - Width 61 -Current Size (cm) - Depth 7 -Total Square Cm 366 -Date of Last Picture (Recall this field) -Photo Taken No -Epithelialization Small 1-33% Small 1-33% -Tunneling No No -Undermining/Tunneling No No -Circular Undermining No No -Exudate Amt Large Large -Exudate Type Serosanguineous Serosanguineous -Wound Margin Flat & Intact Distinct, Outline Attached -Granulation Amt Large (67-100%) Large (67-100%) -Granulation Quality Red Red -Slough/Fibrin Yes Yes -Necrosis Amt Small (1-33%) Small (1-33%) -Necrotic Tissue Type Adherent Slough Adherent Slough -Structure Exposed N/A -Texture (Dhiraj-wound Skin Appearance) Assessed, Assessed, Excoriation Scarring -Moisture (Dhiraj-wound Skin Appearance) Assessed,Dry/ Assessed Scaly -Color (Dhiraj-wound Skin Appearance) Assessed Assessed -Temperature (Dhiraj-wound Skin No Abnormality No Abnormality Appearance) (Pt Warm) (Pt Warm) -Tenderness on Palpation (Dhiraj-wound No No Skin Appearance) -Ulcer Cleansing Wound Cleanser Soap and Water -Foul Odor after Cleansing No No -Anesthetic Used 4% Lidocaine 4% Lidocaine Solution Solution -Wound Comment(s) Wound adhered to wound quite a bit even having machine turned off 45 mins prior to visit and 3 vials of saline pushed down vac tubing. Patient started screaming while drape was being removed from periwound and then patient proceeded to scream and crying hysterical stating she wants to be done with all of this and wants her surgery done now and not wait until December. Attempted several times to remove sponge from wound but patient continued to be in pain screaming even after warm water rinsed to ulcer. Patient states she wants to see Tashia now and crying to done and over with all of this. 4% lidocaine applied to wound and Tashia notified of intense pain and aggravation that patient was experiencing. Tashia came down to see patient and assisted me with the removal of the sponge. Successfully, after 10 mins of removing sponge, it all came out and wound cleanser was performed to clean the ulcer and the dhiraj-wound. New orders was to place vac on hold and to show the application of daily 0.25% Dakin's kerlix to ulcer. Advised patient to take a shower and get the dressing wet prior to removing the dressing. They both verbalized understanding and minimal tape used for comfort, abd binder applied to reinforce the dressings in place. WC - Nurse 2 - General Ulcer CM Notes Start: 11/14/22 09:03 Freq: Status: Active Protocol: Activity Type Activity Date Activity User E-sign Co-sign Detail Recorded Client Recorded Date Recorded By Document 11/14/22 09:59 JF Laptop 11/14/22 10:00 JF Document 11/21/22 10:07 Laptop 11/21/22 10:09 Document 11/28/22 10:24 Laptop 11/28/22 10:35 11/14/22 11/21/22 11/28/22 09:59 10:07 10:24 Wound Center Nurse 2 #1- ABDOMEN POST OP -Time 10:07 10:27 -Correct Patient No Yes Yes -Correct Side, Site, Position No Yes Yes -Correct Procedure No Yes Yes -Procedure Performed No Yes Yes -Type of Procedure Debridement Debridement -Clinical Debridement Subcutaneous Subcutaneous -Tissue Removed Subcutaneous Subcutaneous -Post Debridement (cm) - Length 7 6.5 -Post Debridement (cm) - Width 67 67.8 -Post Debridement (cm) - Depth 7 5.5 -Total Square (Post) (cm) 469 440.70 -Area of Debridement (cm) - Length 7 6.5 -Area of Debridement (cm) - Width 67 67.8 -Total Square (Area) (cm) 469 440.70 -Tunneling No No -Undermining/Tunneling No No -Circular Undermining No No -Wound/Ulcer Outcome Not Healed Not Healed Not Healed -Ulcer Cleansing Rinsed/ Rinsed/ Irrigated with Irrigated with Saline Saline -Foul Odor after Cleansing No No -Bioengineered Tissue No No -Bleeding Controlled with Pressure Silver Nitrate -Treatment Response Procedure Procedure Not Tolerated Well Tolerated Well -Offloading No No -Debridement - Subq, 1st 20sq cm Yes Yes -Debridement, SubQ, ea addt'l 20sq cm 23 22 or part thereof Pain Scale: 0-10 Numeric Is Patient Pain Free? Yes Yes Yes WC - Nurse 3 - General Ulcer D/C NN Start: 11/14/22 09:03 Freq: Status: Active Protocol: Activity Type Activity Date Activity User E-sign Co-sign Detail Recorded Client Recorded Date Recorded By Document 11/14/22 11:28 BMF Desktop 11/14/22 11:29 BMF Document 11/17/22 13:32 RB Desktop 11/17/22 13:34 RB Document 11/21/22 10:12 DL Desktop 11/21/22 10:14 DL Document 11/24/22 15:08 JF Desktop 11/24/22 15:18 JF Document 11/28/22 10:40 DL Desktop 11/28/22 10:42 DL 11/14/22 11/17/22 11/21/22 11:28 13:32 10:12 Wound Care Center Nurse 3 #1- ABDOMEN POST OP -Ulcer Cleansing Rinsed/ Wound Cleanser Soap and Water Irrigated with Saline -Foul Odor after Cleansing No No -Negative Pressure Wound Therapy Continue Continue Continue -Setting (mmHg) 150 150 150 -Negative Pressure is Continuous Continuous Continuous -Primary Dressing Applied -Other Dressing -Primary Dressing Covered/Secured with -NPWT Application Charge NPWT > 50 sq cm NPWT > 50 sq cm NPWT & ($) ($) Debridement (nc ) -Optilok 6.5x10 -Optilok 8x12 Treatment Response Procedure Procedure Procedure Tolerated Well Tolerated Well Tolerated Well Vital Signs Temperature (97.8 F-99.1 F) 97 F L Temperature Source Temporal Pulse Rate (60-100) 72 Pulse Location Monitor Respiratory Rate (12-18) 18 Respiratory rate source Observation Blood Pressure (90/60-120/80) 145/70 H Blood Pressure Mean (mm Hg) 95 Source Monitor Position Semi-Fowlers Blood Pressure Location Left Arm Pain Scale: 0-10 Numeric Is Patient Pain Free? Yes Yes Yes WC - Visit Discharge Discharge Condition Stable Stable Stable Ambulatory Status Ambulatory Ambulatory Ambulatory Transportation Private Auto Private Auto [facility] Reconcilliation completed & No provided to patient/care provider Clinical Summary of Care Provided Yes Notes: abdominal binder 11/24/22 11/28/22 15:08 10:40 Wound Care Center Nurse 3 #1- ABDOMEN POST OP -Ulcer Cleansing Wound Cleanser Soap and Water -Foul Odor after Cleansing No No -Negative Pressure Wound Therapy -Setting (mmHg) -Negative Pressure is -Primary Dressing Applied Hysept ($), Optilok 6.5x10 Optilok 8x12 -Other Dressing dakins -Primary Dressing Covered/Secured with Dry Gauze, Secured with Tape -NPWT Application Charge -Optilok 6.5x10 1 -Optilok 8x12 6 Treatment Response Procedure Tolerated Well Vital Signs Temperature (97.8 F-99.1 F) Temperature Source Pulse Rate (60-100) Pulse Location Respiratory Rate (12-18) Respiratory rate source Blood Pressure (90/60-120/80) Blood Pressure Mean (mm Hg) Source Position Blood Pressure Location Pain Scale: 0-10 Numeric Is Patient Pain Free? Yes Yes WC - Visit Discharge Discharge Condition Stable Stable Ambulatory Status Ambulatory Ambulatory Transportation Private Auto Private Auto Accompanied by Medication Reconcilliation completed & provided to patient/care provider Clinical Summary of Care Provided Notes: Ambulated with at side to private car . Denied dizziness or weakness. Just recovering from the painful dressing removal and states she will be okay. Water provided for the ride home. Wound cultures performed per Tashia's request. Assessment/Plan Assessment/Plan (1) Open wound, abdominal wall, lateral: CODE(S): S31.109A - Unspecified open wound of abdominal wall, unspecified quadrant without penetration into peritoneal cavity, initial encounter (2) Abdominal panniculus: CODE(S): E65 - Localized adiposity (3) Panniculitis: CODE(S): M79.3 - Panniculitis, unspecified (4) Intertrigo: CODE(S): L30.4 - Erythema intertrigo (5) Hidradenitis: CODE(S): L73.2 - Hidradenitis suppurativa (6) Status post panniculectomy: CODE(S): Z98.890 - Other specified postprocedural states PLAN: Plan Patient evaluated at the wound healing center today. Wound care - Wound VAC holiday. Dakins 0.25% moistened gauze/kerlix covered with ABD or super absorbers daily and as needed. Wash with soap and water daily at the time of the dressing change. Encouraged high protein diet to help with wound healing. Wound culture from 11/24/22 positive for Staphylococcus aureus, Enterococcus faecalis, and Corynebacterium striatum. Anaerobic culture still pending. They are sensitive to Augmentin and Linezolid. Patient has a PCN allergy as a baby but she has taken amoxicillin and Augmentin in the past with no issues and is willing to take Augmentin. Follow up one week.
[2022-12-05 10:30] VITALS: BP 133/70; PULSE 101; RESP 20; TEMP 35.9
--- NOTE | 2022-12-05 11:18 | PN.PCM_ITS ---
History of Present Illness Date of Service: 12/05/22 Chief Complaint: Abdominal panniculectomy History of Wound: 37 year old woman presents with worsening pain and redness and some odor in her abdominal wall skin crease. She has some intertrigo for which she has used powders and antifungals with minimal relief and no resolution. She recently gave 10 months ago. She also has bilateral inguinal hidradenitis but not bothering her at this time. She denies fever. She denies trauma. She denies recent infection. We have received medical approval for her panniculectomy. Surgery 11/09/22 - Abdominal panniculectomy. She was discharged home 11/11/22 with a wound VAC. Unable to find home health, so she is coming into the wound center twice a week for wound vac dressing changes. She developed a fever on 11/10/22, CXRY was negative but her urine had 500 Leukocyte Esterase High urine protein of 30. She was sent home with Levaquin upon discharge. Wound care - Dakins moistened gauze covered with ABD/super absorber. Wound VAC holiday Prealbumin on 11/10/22 - 21.6. She denies fever, chills, nausea and vomiting. She comes in today for further evaluation. Progress of Wound: Wound is smaller overall. It is a nice beefy red color. No areas of fat n ecrosis. Hayley wound is stable. She is tolerating the Dakins dressing changes well. Objective Data Objective Data Vital Signs: Vital Signs Temp Pulse Resp BP O2 Del Method 96.7 F L 101 H 20 H 133/70 H Room Air 12/05/22 10:30 12/05/22 10:30 12/05/22 10:30 12/05/22 10:30 11/28/22 09:59 Oxygen Delivery Method Room Air Lab / Micro Data Micro: Microbiology 11/24/22 14:45 Wound - Abdominal Gram Stain - Final 11/24/22 14:45 Wound - Abdominal Wound Culture - Final Staphylococcus aureus Enterococcus faecalis Corynebacterium striatum 11/24/22 14:45 Wound - Abdominal Anaerobic Culture - Final No anaerobic bacteria isolated. Charges/Coding Procedures Integumentary [id number]: [id number] Global Visit Debridement Note Debridement Note Wound debrided: Lower abdominal wound Laterality: Not Applicable Type of Debridement: Excisional debridement Anesthesia Used: 4% Lidocaine Solution and 5% Lidocaine Gel Depth: Down to and including healthy tissue and in the subcutaneous layer Percentage of wound debrided: 100 Instrument Used: 7mm curette Tissue Removed: Non viable tissue and slough Severity: Fat Layer Exposed Amount of bleeding with debridement: Mild Bleeding Controlled with: Pressure and Compression and gauze Patient tolerated procedure: Patient tolerated procedure well Post-Debridement Measurements and Additional Note: Post-Debridement Measurements/Treatment - Nurse 1 - General Ulcer Assessment Start: 11/14/22 09:03 Freq: Status: Active Protocol: FRANTZ Activity Type Activity Date Activity User E-sign Co-sign Detail Recorded Client Recorded Date Recorded By Document 11/14/22 09:04 BMF Desktop 11/14/22 09:36 BMF Document 11/17/22 13:32 RB Desktop 11/17/22 13:34 RB Document 11/21/22 09:25 BMF Desktop 11/21/22 09:46 BM Document 11/24/22 15:08 JF Desktop 11/24/22 15:18 JF Document 11/28/22 09:59 BMF Desktop 11/28/22 10:05 [facility] Document 12/05/22 10:30 DL Desktop 12/05/22 10:37 DL 11/14/22 11/17/22 11/21/22 09:04 13:32 09:25 - Today's Visit Information Type of service Initial Visit Follow-up Visit Follow-up Visit (Physician/RELATIONSHIP EXECUTIVE (Physician/RELATIONSHIP EXECUTIVE ) ) Arrival Mode Ambulatory Ambulatory Ambulatory Transfer Assistance None None None Accompanied by Patient Identification Verified (Name & Yes Yes Yes ) Patient Requires Transmission-Based No No No Precautions Height and Weight Height 5 ft 4 in Vital Signs Temperature (97.8 F-99.1 F) 95.7 F L 97 F L 97 F L Temperature Source Temporal Temporal Temporal Pulse Rate (60-100) 105 H 72 91 Pulse Location Monitor Monitor Monitor Respiratory Rate (12-18) 16 18 16 Respiratory rate source Observation Observation Observation Oxygen Delivery Method Room Air Room Air Blood Pressure (90/60-120/80) 126/61 H 145/70 H 119/68 Blood Pressure Mean (mm Hg) 82 95 85 Source Monitor Monitor Monitor Position Sitting Semi-Fowlers Sitting Blood Pressure Location Left Arm Left Arm Left Arm History Since Last Visit- (Skip if this is Patient's initial visit) Have you changed medications since your No No last visit? Any new allergies or adverse reactions No No Had a fall/change in ADL's that may No No increase risk of falls Signs or symptoms of abuse and/or No No neglect since last visit Have you been in the hospital since your No No last visit? Has dressing in place as prescribed Yes Yes Has compression in place as prescribed No N/A Has offloadiing in place as prescribed No N/A Experienced any changes in pain level or No No management Left Footwear Regular Shoe Regular Shoe Right Footwear Regular Shoe Regular Shoe Pain Scale: 0-10 Numeric Is Patient Pain Free? No Yes Yes abdomen -Description Tightness -Intensity 10 -Duration (hours) Acute -Pain Behavior Withdrawal from Touch,Facial Grimacing -Pain Aggravating Factors Sitting -Alleviating Factors/Interventions Distraction, Will continue to monitor, Patient denies need for intervention, Emotional Support -Comments took 2 pain pills prior to visit Communication Assessment Preferred language [place] Screen Examiner Required No Able to Read Yes Able to Write Yes Communication Tools None Right Hearing Abillity Normal Left Hearing Abillity Normal Visual Assistive Devices None Teaching Assessment Preferences Verbal,Written, Audio/Visual, Demonstration Barriers to Learning None Readiness To Learn Excellent Willingness to Engage in Self Management High Activies Readiness to Engage in Self Management High Activities Anxiety Level Calm Cooperation Cooperative Perception Coherent Interest in Health Problem Asks Questions Education Importance Acknowledges Need Does Patient Smoke tobacco or other No substances Smoking Status Never smoker Is Patient Diabetic No Functional Assessment Recent Decline in Ability to Perform Denies Any Declines Teaching: Wound Center *Welcome to the Wound Center -Person Taught Patient, Significant Other -Teaching Method Discussion -Response to teaching Verbalize understanding Welcome to the Wound Care Center [place] 11/24/22 11/28/22 12/05/22 15:08 09:59 10:30 - Today's Visit Information Type of service Nurse-only Follow-up Visit Follow-up Visit Visit (Physician/RELATIONSHIP EXECUTIVE (Physician/RELATIONSHIP EXECUTIVE ) ) Arrival Mode Ambulatory Ambulatory Ambulatory Transfer Assistance None None Accompanied by Patient Identification Verified (Name & Yes Yes Yes ) Patient Requires Transmission-Based No No No Precautions Height and Weight Height Vital Signs Temperature (97.8 F-99.1 F) 96.8 F L 96.7 F L Temperature Source Temporal Temporal Pulse Rate (60-100) 108 H 101 H Pulse Location Monitor Monitor Respiratory Rate (12-18) 16 20 H Respiratory rate source Observation Observation Oxygen Delivery Method Room Air Blood Pressure (90/60-120/80) 138/78 H 133/70 H Blood Pressure Mean (mm Hg) 98 91 Source Monitor Monitor Position Sitting Blood Pressure Location Left Arm History Since Last Visit- (Skip if this is Patient's initial visit) Have you changed medications since your No No last visit? Any new allergies or adverse reactions No No Had a fall/change in ADL's that may No No increase risk of falls Signs or symptoms of abuse and/or No No neglect since last visit Have you been in the hospital since your No No last visit? Has dressing in place as prescribed Yes Yes Has compression in place as prescribed Yes N/A Has offloadiing in place as prescribed N/A N/A Experienced any changes in pain level or No Yes management Left Footwear Regular Shoe Regular Shoe Right Footwear Regular Shoe Regular Shoe Pain Scale: 0-10 Numeric Is Patient Pain Free? 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 Able to Read Able to Write Communication Tools Right Hearing Abillity Left Hearing Abillity Visual Assistive Devices Teaching Assessment Preferences Barriers to Learning Readiness To Learn Willingness to Engage in Self Management Activies Readiness to Engage in Self Management Activities Anxiety Level Cooperation Perception Interest in Health Problem Education Importance Does Patient Smoke tobacco or other substances Smoking Status Is Patient Diabetic Functional Assessment Recent Decline in Ability to Perform Teaching: Wound Center *Welcome to the Wound Center -Person Taught -Teaching Method -Response to teaching Welcome to the Wound Care Center WC - Nurse 1 - General Ulcer Measurement Start: 11/14/22 09:03 Freq: Status: Active Protocol: Activity Type Activity Date Activity User E-sign Co-sign Detail Recorded Client Recorded Date Recorded By Document 11/14/22 09:04 BMF Desktop 11/14/22 09:36 BMF Document 11/17/22 13:32 RB Desktop 11/17/22 13:34 RB Document 11/21/22 09:25 BMF Desktop 11/21/22 09:46 BMF Document 11/24/22 15:08 JF Desktop 11/24/22 15:18 JF Document 11/28/22 09:59 BMF Desktop 11/28/22 10:05 BMF Document 12/05/22 10:30 DL Desktop 12/05/22 10:37 DL 11/14/22 11/17/22 11/21/22 09:04 13:32 09:25 Wound Center Nurse 1 #1- ABDOMEN POST OP -Combined with other wound No No -Current Size (cm) - Length 2.3 66.5 -Current Size (cm) - Width 65.4 5.3 -Current Size (cm) - Depth 6.8 5.3 -Total Square Cm 150.42 352.45 -Date of Last Picture (Recall this 11/14/22 11/21/22 field) -Photo Taken Yes Yes -Epithelialization None Present Small 1-33% -Tunneling No -Undermining/Tunneling No -Circular Undermining No -Exudate Amt Large Large Large -Exudate Type Sanguineous Serosanguineous Serosanguineous -Wound Margin Distinct, Distinct, Distinct, Outline Outline Outline Attached Attached Attached -Granulation Amt Medium (34-66%) Large (67-100%) Large (67-100%) -Granulation Quality Red [place],Red Red -Slough/Fibrin Yes Yes -Necrosis Amt Medium (34-66%) Small (1-33%) Small (1-33%) -Necrotic Tissue Type Adherent Slough Adherent Slough Adherent Slough -Structure Exposed N/A -Texture (Hayley-wound Skin Appearance) Assessed Assessed Assessed -Moisture (Hayley-wound Skin Appearance) Assessed Assessed Assessed -Color (Hayley-wound Skin Appearance) Assessed Assessed Assessed -Temperature (Hayley-wound Skin No Abnormality No Abnormality No Abnormality Appearance) (Pt Warm) (Pt Warm) (Pt Warm) -Tenderness on Palpation (Hayley-wound No No No Skin Appearance) -Ulcer Cleansing Soap and Water Wound Cleanser Soap and Water -Foul Odor after Cleansing No No No -Anesthetic Used 4% Lidocaine 4% Lidocaine Solution Solution -Wound Comment(s) 11/24/22 11/28/22 12/05/22 15:08 09:59 10:30 Wound Center Nurse 1 #1- ABDOMEN POST OP -Combined with other wound No No -Current Size (cm) - Length 6 3.1 -Current Size (cm) - Width 61 56.5 -Current Size (cm) - Depth 7 4 -Total Square Cm 366 175.15 -Date of Last Picture (Recall this field) -Photo Taken No Yes -Epithelialization Small 1-33% Small 1-33% -Tunneling No No -Undermining/Tunneling No No -Circular Undermining No No -Exudate Amt Large Large Medium -Exudate Type Serosanguineous Serosanguineous Serosanguineous -Wound Margin Flat & Intact Distinct, Distinct, Outline Outline Attached Attached -Granulation Amt Large (67-100%) Large (67-100%) -Granulation Quality Red Red Pale,Red -Slough/Fibrin Yes Yes -Necrosis Amt Small (1-33%) Small (1-33%) Small (1-33%) -Necrotic Tissue Type Adherent Slough Adherent Slough Adherent Slough -Structure Exposed N/A N/A -Texture (Hayley-wound Skin Appearance) Assessed, Assessed, Scarring Excoriation Scarring -Moisture (Hayley-wound Skin Appearance) Assessed,Dry/ Assessed No Abnormality Scaly -Color (Hayley-wound Skin Appearance) Assessed Assessed No Abnormality -Temperature (Hayley-wound Skin No Abnormality No Abnormality No Abnormality Appearance) (Pt Warm) (Pt Warm) (Pt Warm) -Tenderness on Palpation (Hayley-wound No No No Skin Appearance) -Ulcer Cleansing Wound Cleanser Soap and Water Soap and Water -Foul Odor after Cleansing No No No -Anesthetic Used 4% Lidocaine 4% Lidocaine 4% Lidocaine Solution Solution Solution -Wound Comment(s) Wound adhered to wound quite a bit even having machine turned off 45 mins prior to visit and 3 vials of saline pushed down vac tubing. Patient started screaming while drape was being removed from periwound and then patient proceeded to scream and crying hysterical stating she wants to be done with all of this and wants her surgery done now and not wait until December. Attempted several times to remove sponge from wound but patient continued to be in pain screaming even after warm water rinsed to ulcer. Patient states she wants to see Tashia now and crying to done and over with all of this. 4% lidocaine applied to wound and Tashia notified of intense pain and aggravation that patient was experiencing. Tashia came down to see patient and assisted me with the removal of the sponge. Successfully, after 10 mins of removing sponge, it all came out and wound cleanser was performed to clean the ulcer and the hayley-wound. New orders was to place vac on hold and to show the application of daily 0.25% Dakin's kerlix to ulcer. Advised patient to take a shower and get the dressing wet prior to removing the dressing. They both verbalized understanding and minimal tape used for comfort, abd binder applied to reinforce the dressings in place. WC - Nurse 2 - General Ulcer CM Notes Start: 11/14/22 09:03 Freq: Status: Active Protocol: Activity Type Activity Date Activity User E-sign Co-sign Detail Recorded Client Recorded Date Recorded By Document 11/14/22 09:59 Laptop 11/14/22 10:00 Document 11/21/22 10:07 Laptop 11/21/22 10:09 Document 11/28/22 10:24 Laptop 11/28/22 10:35 Document 12/05/22 10:55 Desktop 12/05/22 10:56 11/14/22 11/21/22 11/28/22 09:59 10:07 10:24 Wound Center Nurse 2 #1- ABDOMEN POST OP -Time 10:07 10:27 -Correct Patient No Yes Yes -Correct Side, Site, Position No Yes Yes -Correct Procedure No Yes Yes -Procedure Performed No Yes Yes -Type of Procedure Debridement Debridement -Clinical Debridement Subcutaneous Subcutaneous -Tissue Removed Subcutaneous Subcutaneous -Post Debridement (cm) - Length 7 6.5 -Post Debridement (cm) - Width 67 67.8 -Post Debridement (cm) - Depth 7 5.5 -Total Square (Post) (cm) 469 440.70 -Area of Debridement (cm) - Length 7 6.5 -Area of Debridement (cm) - Width 67 67.8 -Total Square (Area) (cm) 469 440.70 -Tunneling No No -Undermining/Tunneling No No -Circular Undermining No No -Wound/Ulcer Outcome Not Healed Not Healed Not Healed -Ulcer Cleansing Rinsed/ Rinsed/ Irrigated with Irrigated with Saline Saline -Foul Odor after Cleansing No No -Bioengineered Tissue No No -Bleeding Controlled with Pressure Silver Nitrate -Treatment Response Procedure Procedure Not Tolerated Well Tolerated Well -Offloading No No -Debridement - Subq, 1st 20sq cm Yes Yes -Debridement, SubQ, ea addt'l 20sq cm 23 22 or part thereof Pain Scale: 0-10 Numeric Is Patient Pain Free? Yes Yes Yes 12/05/22 10:55 Wound Center Nurse 2 #1- ABDOMEN POST OP -Time 10:55 -Correct Patient Yes -Correct Side, Site, Position Yes -Correct Procedure Yes -Procedure Performed Yes -Type of Procedure Debridement -Clinical Debridement Subcutaneous -Tissue Removed Subcutaneous -Post Debridement (cm) - Length 4.4 -Post Debridement (cm) - Width 61.0 -Post Debridement (cm) - Depth 0.3 -Total Square (Post) (cm) 268.40 -Area of Debridement (cm) - Length 4.4 -Area of Debridement (cm) - Width 61.0 -Total Square (Area) (cm) 268.40 -Tunneling No -Undermining/Tunneling No -Circular Undermining No -Wound/Ulcer Outcome Not Healed -Ulcer Cleansing Rinsed/ Irrigated with Saline -Foul Odor after Cleansing No -Bioengineered Tissue No -Bleeding Controlled with Pressure -Treatment Response Procedure Tolerated Well -Offloading No -Debridement - Subq, 1st 20sq cm Yes -Debridement, SubQ, ea addt'l 20sq cm 13 or part thereof Pain Scale: 0-10 Numeric Is Patient Pain Free? Yes WC - Nurse 3 - General Ulcer D/C NN Start: 11/14/22 09:03 Freq: Status: Active Protocol: Activity Type Activity Date Activity User E-sign Co-sign Detail Recorded Client Recorded Date Recorded By Document 11/14/22 11:28 [facility] Desktop 11/14/22 11:29 [facility] Document 11/17/22 13:32 RB Desktop 11/17/22 13:34 RB Document 11/21/22 10:12 DL Desktop 11/21/22 10:14 DL Document 11/24/22 15:08 JF Desktop 11/24/22 15:18 JF Document 11/28/22 10:40 DL Desktop 11/28/22 10:42 DL Document 12/05/22 11:07 [facility] Desktop 12/05/22 11:07 [facility] 11/14/22 11/17/22 11/21/22 11:28 13:32 10:12 Wound Care Center Nurse 3 #1- ABDOMEN POST OP -Ulcer Cleansing Rinsed/ Wound Cleanser Soap and Water Irrigated with Saline -Foul Odor after Cleansing No No -Negative Pressure Wound Therapy Continue Continue Continue -Setting (mmHg) 150 150 150 -Negative Pressure is Continuous Continuous Continuous -Primary Dressing Applied -Other Dressing -Primary Dressing Covered/Secured with -NPWT Application Charge NPWT > 50 sq cm NPWT > 50 sq cm NPWT & ($) ($) Debridement (nc ) -Optilok 6.5x10 -Optilok 8x12 Treatment Response Procedure Procedure Procedure Tolerated Well Tolerated Well Tolerated Well Vital Signs Temperature (97.8 F-99.1 F) 97 F L Temperature Source Temporal Pulse Rate (60-100) 72 Pulse Location Monitor Respiratory Rate (12-18) 18 Respiratory rate source Observation Blood Pressure (90/60-120/80) 145/70 H Blood Pressure Mean (mm Hg) 95 Source Monitor Position Semi-Fowlers Blood Pressure Location Left Arm Pain Scale: 0-10 Numeric Is Patient Pain Free? Yes Yes Yes WC - Visit Discharge Discharge Condition Stable Stable Stable Ambulatory Status Ambulatory Ambulatory Ambulatory Transportation Private Auto Private Auto Private Auto Accompanied by marla Medication Reconcilliation completed & No provided to patient/care provider Clinical Summary of Care Provided Yes Notes: abdominal binder 11/24/22 11/28/22 12/05/22 15:08 10:40 11:07 Wound Care Center Nurse 3 #1- ABDOMEN POST OP -Ulcer Cleansing Wound Cleanser Soap and Water Rinsed/ Irrigated with Saline -Foul Odor after Cleansing No No No -Negative Pressure Wound Therapy -Setting (mmHg) -Negative Pressure is -Primary Dressing Applied Hysept ($), Optilok 6.5x10 Hysept ($) Optilok 8x12 -Other Dressing dakins ABD; HELD IN PLACE W/ ABD BINDER -Primary Dressing Covered/Secured with Dry Gauze, Secured with Tape -NPWT Application Charge -Optilok 6.5x10 1 -Optilok 8x12 6 Treatment Response Procedure Procedure Tolerated Well Tolerated Well Vital Signs Temperature (97.8 F-99.1 F) Temperature Source Pulse Rate (60-100) Pulse Location Respiratory Rate (12-18) Respiratory rate source Blood Pressure (90/60-120/80) Blood Pressure Mean (mm Hg) Source Position Blood Pressure Location Pain Scale: 0-10 Numeric Is Patient Pain Free? Yes Yes Yes WC - Visit Discharge Discharge Condition Stable Stable Stable Ambulatory Status Ambulatory Ambulatory Ambulatory Transportation Private Auto Private Auto Private Auto Accompanied by Medication Reconcilliation completed & provided to patient/care provider Clinical Summary of Care Provided Notes: Ambulated with at side to private car . Denied dizziness or weakness. Just recovering from the painful dressing removal and states she will be okay. Water provided for the ride home. Wound cultures performed per Tashia's request. Assessment/Plan Assessment/Plan (1) Open wound, abdominal wall, lateral: CODE(S): S31.109A - Unspecified open wound of abdominal wall, unspecified quadrant without penetration into peritoneal cavity, initial encounter (2) Abdominal panniculus: CODE(S): E65 - Localized adiposity (3) Panniculitis: CODE(S): M79.3 - Panniculitis, unspecified (4) Intertrigo: CODE(S): L30.4 - Erythema intertrigo (5) Hidradenitis: CODE(S): L73.2 - Hidradenitis suppurativa (6) Status post panniculectomy: CODE(S): Z98.890 - Other specified postprocedural states PLAN: Plan Patient evaluated at the wound healing center today. Wound care - Wound VAC discontinued. Dakins 0.25% moistened gauze/kerlix covered with ABD or super absorbers daily and as needed. Wash with soap and water daily at the time of the dressing change. Encouraged high protein diet to help with wound healing. Wound culture from 11/24/22 positive for Staphylococcus aureus, Enterococcus faecalis, and Corynebacterium striatum. Anaerobic culture still pending. They are sensitive to Augmentin and Linezolid. Patient has a PCN allergy as a baby but she has taken amoxicillin and Augmentin in the past with no issues and is willing to take Augmentin. Follow up one week.
[2022-12-12 10:20] VITALS: BP 132/61; PULSE 84; RESP 20; TEMP 36.4
--- NOTE | 2022-12-12 12:41 | PN.PCM_ITS ---
History of Present Illness Date of Service: 12/12/22 Chief Complaint: Abdominal panniculectomy History of Wound: 37 year old woman presents with worsening pain and redness and some odor in her abdominal wall skin crease. She has some intertrigo for which she has used powders and antifungals with minimal relief and no resolution. She recently gave 10 months ago. She also has bilateral inguinal hidradenitis but not bothering her at this time. She denies fever. She denies trauma. She denies recent infection. We have received medical approval for her panniculectomy. Surgery 11/09/22 - Abdominal panniculectomy. She was discharged home 11/11/22 with a wound VAC. Unable to find home health, so she is coming into the wound center twice a week for wound vac dressing changes. She developed a fever on 11/10/22, CXRY was negative but her urine had 500 Leukocyte Esterase High urine protein of 30. She was sent home with Levaquin upon discharge. Wound care - Dakins moistened gauze covered with ABD/super absorber. Wound VAC holiday Prealbumin on 11/10/22 - 21.6. She denies fever, chills, nausea and vomiting. She comes in today for further evaluation. Progress of Wound: Wound is much smaller. It is a nice beefy red color. No areas of fat necrosis. Hayley wound is stable. She is tolerating the Dakins dressing changes well. Objective Data Objective Data Vital Signs: Vital Signs Temp Pulse Resp BP O2 Del Method 97.5 F L 84 20 H 132/61 H Room Air 12/12/22 10:20 12/12/22 10:20 12/12/22 10:20 12/12/22 10:20 11/28/22 09:59 Oxygen Delivery Method Room Air Lab / Micro Data Micro: Microbiology 11/24/22 14:45 Wound - Abdominal Gram Stain - Final 11/24/22 14:45 Wound - Abdominal Wound Culture - Final Staphylococcus aureus Enterococcus faecalis Corynebacterium striatum 11/24/22 14:45 Wound - Abdominal Anaerobic Culture - Final No anaerobic bacteria isolated. Charges/Coding Procedures Integumentary [id number]: [id number] Global Visit Debridement Note Debridement Note No debridement was completed: No debridement was completed today Post-Debridement Measurements and Additional Note: Post-Debridement Measurements/Treatment WC - Nurse 1 - General Ulcer Assessment Start: 11/14/22 09:03 Freq: Status: Active Protocol: [email or web address] Activity Type Activity Date Activity User E-sign Co-sign Detail Recorded Client Recorded Date Recorded By Document 11/14/22 09:04 BMF Desktop 11/14/22 09:36 BMF Document 11/17/22 13:32 RB Desktop 11/17/22 13:34 RB Document 11/21/22 09:25 BMF Desktop 11/21/22 09:46 BMF Document 11/24/22 15:08 JF Desktop 11/24/22 15:18 JF Document 11/28/22 09:59 BMF Desktop 11/28/22 10:05 BMF Document 12/05/22 10:30 DL Desktop 12/05/22 10:37 DL Document 12/12/22 10:20 DL Desktop 12/12/22 10:27 DL 11/14/22 11/17/22 11/21/22 09:04 13:32 09:25 - Today's Visit Information Type of service Initial Visit Follow-up Visit Follow-up Visit (Physician/STAVE BOLT EQUALIZER (Physician/STAVE BOLT EQUALIZER ) ) Arrival Mode Ambulatory Ambulatory Ambulatory Transfer Assistance None None None Accompanied by Patient Identification Verified (Name & Yes Yes Yes ) Patient Requires Transmission-Based No No No Precautions Height and Weight Height 5 ft 4 in Vital Signs Temperature (97.8 F-99.1 F) 95.7 F L 97 F L 97 F L Temperature Source Temporal Temporal Temporal Pulse Rate (60-100) 105 H 72 91 Pulse Location Monitor Monitor Monitor Respiratory Rate (12-18) 16 18 16 Respiratory rate source Observation Observation Observation Oxygen Delivery Method Room Air Room Air Blood Pressure (90/60-120/80) 126/61 H 145/70 H 119/68 Blood Pressure Mean (mm Hg) 82 95 85 Source Monitor Monitor Monitor Position Sitting Semi-Fowlers Sitting Blood Pressure Location Left Arm Left Arm Left Arm History Since Last Visit- (Skip if this is Patient's initial visit) Have you changed medications since your No No last visit? Any new allergies or adverse reactions No No Had a fall/change in ADL's that may No No increase risk of falls Signs or symptoms of abuse and/or No No neglect since last visit Have you been in the hospital since your No No last visit? Has dressing in place as prescribed Yes Yes Has compression in place as prescribed No N/A Has offloadiing in place as prescribed No N/A Experienced any changes in pain level or No No management Left Footwear Regular Shoe Regular Shoe Right Footwear Regular Shoe Regular Shoe Pain Scale: 0-10 Numeric Is Patient Pain Free? No Yes Yes abdomen -Description Tightness -Intensity 10 -Duration (hours) Acute -Pain Behavior Withdrawal from Touch,Facial Grimacing -Pain Aggravating Factors Sitting -Alleviating Factors/Interventions Distraction, Will continue to monitor, Patient denies need for intervention, Emotional Support -Comments took 2 pain pills prior to visit Communication Assessment Preferred language Dutch [employer] Required No Able to Read Yes Able to Write Yes Communication Tools None Right Hearing Abillity Normal Left Hearing Abillity Normal Visual Assistive Devices None Teaching Assessment Preferences Verbal,Written, Audio/Visual, Demonstration Barriers to Learning None Readiness To Learn Excellent Willingness to Engage in Self Management High Activies Readiness to Engage in Self Management High Activities Anxiety Level Calm Cooperation Cooperative Perception Coherent Interest in Health Problem Asks Questions Education Importance Acknowledges Need Does Patient Smoke tobacco or other No substances Smoking Status Never smoker Is Patient Diabetic No Functional Assessment Recent Decline in Ability to Perform Denies Any Declines Teaching: Wound Center *Welcome to the Wound Center -Person Taught Patient, Significant Other -Teaching Method Discussion -Response to teaching Verbalize understanding Welcome to the Wound Care Center [place] 11/24/22 11/28/22 12/05/22 15:08 09:59 10:30 - Today's Visit Information Type of service Nurse-only Follow-up Visit Follow-up Visit Visit (Physician/STAVE BOLT EQUALIZER (Physician/STAVE BOLT EQUALIZER ) ) Arrival Mode Ambulatory Ambulatory Ambulatory Transfer Assistance None None Accompanied by Patient Identification Verified (Name & Yes Yes Yes ) Patient Requires Transmission-Based No No No Precautions Height and Weight Height Vital Signs Temperature (97.8 F-99.1 F) 96.8 F L 96.7 F L Temperature Source Temporal Temporal Pulse Rate (60-100) 108 H 101 H Pulse Location Monitor Monitor Respiratory Rate (12-18) 16 20 H Respiratory rate source Observation Observation Oxygen Delivery Method Room Air Blood Pressure (90/60-120/80) 138/78 H 133/70 H Blood Pressure Mean (mm Hg) 98 91 Source Monitor Monitor Position Sitting Blood Pressure Location Left Arm History Since Last Visit- (Skip if this is Patient's initial visit) Have you changed medications since your No No last visit? Any new allergies or adverse reactions No No Had a fall/change in ADL's that may No No increase risk of falls Signs or symptoms of abuse and/or No No neglect since last visit Have you been in the hospital since your No No last visit? Has dressing in place as prescribed Yes Yes Has compression in place as prescribed Yes N/A Has offloadiing in place as prescribed N/A N/A Experienced any changes in pain level or No Yes management Left Footwear Regular Shoe Regular Shoe Right Footwear Regular Shoe Regular Shoe Pain Scale: 0-10 Numeric Is Patient Pain Free? Yes Yes Yes abdomen -Description -Intensity -Duration (hours) -Pain Behavior -Pain Aggravating Factors -Alleviating Factors/Interventions -Comments Communication Assessment Preferred supervisor plate forming Required Able to Read Able to Write Communication Tools Right Hearing Abillity Left Hearing Abillity Visual Assistive Devices Teaching Assessment Preferences Barriers to Learning Readiness To Learn Willingness to Engage in Self Management Activies Readiness to Engage in Self Management Activities Anxiety Level Cooperation Perception Interest in Health Problem Education Importance Does Patient Smoke tobacco or other substances Smoking Status Is Patient Diabetic Functional Assessment Recent Decline in Ability to Perform Teaching: Wound Center *Welcome to the Wound Center -Person Taught -Teaching Method -Response to teaching Welcome to the Wound Care Center 12/12/22 10:20 WC - Today's Visit Information Type of service Follow-up Visit (Physician/STAVE BOLT EQUALIZER ) Arrival Mode Ambulatory Transfer Assistance None Accompanied by Patient Identification Verified (Name & Yes ) Patient Requires Transmission-Based No Precautions Height and Weight Height Vital Signs Temperature (97.8 F-99.1 F) 97.5 F L Temperature Source Temporal Pulse Rate (60-100) 84 Pulse Location Monitor Respiratory Rate (12-18) 20 H Respiratory rate source Observation Oxygen Delivery Method Blood Pressure (90/60-120/80) 132/61 H Blood Pressure Mean (mm Hg) 84 Source Monitor Position Blood Pressure Location History Since Last Visit- (Skip if this is Patient's initial visit) Have you changed medications since your No last visit? Any new allergies or adverse reactions No Had a fall/change in ADL's that may No increase risk of falls Signs or symptoms of abuse and/or No neglect since last visit Have you been in the hospital since your Yes last visit? Has dressing in place as prescribed Yes Has compression in place as prescribed N/A Has offloadiing in place as prescribed N/A Experienced any changes in pain level or No management Left Footwear Right Footwear Pain Scale: 0-10 Numeric Is Patient Pain Free? Yes abdomen -Description -Intensity -Duration (hours) -Pain Behavior -Pain Aggravating Factors -Alleviating Factors/Interventions -Comments Communication Assessment Preferred supervisor plate forming Required Able to Read Able to Write Communication Tools Right Hearing Abillity Left Hearing Abillity Visual Assistive Devices Teaching Assessment Preferences Barriers to Learning Readiness To Learn Willingness to Engage in Self Management Activies Readiness to Engage in Self Management Activities Anxiety Level Cooperation Perception Interest in Health Problem Education Importance Does Patient Smoke tobacco or other substances Smoking Status Is Patient Diabetic Functional Assessment Recent Decline in Ability to Perform Teaching: Wound Center *Welcome to the Wound Center -Person Taught -Teaching Method -Response to teaching Welcome to the Wound Care Center WC - Nurse 1 - General Ulcer Measurement Start: 11/14/22 09:03 Freq: Status: Active Protocol: Activity Type Activity Date Activity User E-sign Co-sign Detail Recorded Client Recorded Date Recorded By Document 11/14/22 09:04 [facility] Desktop 11/14/22 09:36 BMF Document 11/17/22 13:32 RB Desktop 11/17/22 13:34 RB Document 11/21/22 09:25 F Desktop 11/21/22 09:46 [facility] Document 11/24/22 15:08 JF Desktop 11/24/22 15:18 JF Document 11/28/22 09:59 BMF Desktop 11/28/22 10:05 [facility] Document 12/05/22 10:30 DL Desktop 12/05/22 10:37 DL Document 12/12/22 10:27 DL Desktop 12/12/22 10:27 DL 11/14/22 11/17/22 11/21/22 09:04 13:32 09:25 Wound Center Nurse 1 #1- ABDOMEN POST OP -Combined with other wound No No -Current Size (cm) - Length 2.3 66.5 -Current Size (cm) - Width 65.4 5.3 -Current Size (cm) - Depth 6.8 5.3 -Total Square Cm 150.42 352.45 -Date of Last Picture (Recall this 11/14/22 11/21/22 field) -Photo Taken Yes Yes -Epithelialization None Present Small 1-33% -Tunneling No -Undermining/Tunneling No -Circular Undermining No -Exudate Amt Large Large Large -Exudate Type Sanguineous Serosanguineous Serosanguineous -Wound Margin Distinct, Distinct, Distinct, Outline Outline Outline Attached Attached Attached -Granulation Amt Medium (34-66%) Large (67-100%) Large (67-100%) -Granulation Quality Red [place],Red Red -Slough/Fibrin Yes Yes -Necrosis Amt Medium (34-66%) Small (1-33%) Small (1-33%) -Necrotic Tissue Type Adherent Slough Adherent Slough Adherent Slough -Structure Exposed N/A -Texture (Hayley-wound Skin Appearance) Assessed Assessed Assessed -Moisture (Hayley-wound Skin Appearance) Assessed Assessed Assessed -Color (Hayley-wound Skin Appearance) Assessed Assessed Assessed -Temperature (Hayley-wound Skin No Abnormality No Abnormality No Abnormality Appearance) (Pt Warm) (Pt Warm) (Pt Warm) -Tenderness on Palpation (Hayley-wound No No No Skin Appearance) -Ulcer Cleansing Soap and Water Wound Cleanser Soap and Water -Foul Odor after Cleansing No No No -Anesthetic Used 4% Lidocaine 4% Lidocaine Solution Solution -Wound Comment(s) 11/24/22 11/28/22 12/05/22 15:08 09:59 10:30 Wound Center Nurse 1 #1- ABDOMEN POST OP -Combined with other wound No No -Current Size (cm) - Length 6 3.1 -Current Size (cm) - Width 61 56.5 -Current Size (cm) - Depth 7 4 -Total Square Cm 366 175.15 -Date of Last Picture (Recall this field) -Photo Taken No Yes -Epithelialization Small 1-33% Small 1-33% -Tunneling No No -Undermining/Tunneling No No -Circular Undermining No No -Exudate Amt Large Large Medium -Exudate Type Serosanguineous Serosanguineous Serosanguineous -Wound Margin Flat & Intact Distinct, Distinct, Outline Outline Attached Attached -Granulation Amt Large (67-100%) Large (67-100%) -Granulation Quality Red Red Pale,Red -Slough/Fibrin Yes Yes -Necrosis Amt Small (1-33%) Small (1-33%) Small (1-33%) -Necrotic Tissue Type Adherent Slough Adherent Slough Adherent Slough -Structure Exposed N/A N/A -Texture (Hayley-wound Skin Appearance) Assessed, Assessed, Scarring Excoriation Scarring -Moisture (Hayley-wound Skin Appearance) Assessed,Dry/ Assessed No Abnormality Scaly -Color (Hayley-wound Skin Appearance) Assessed Assessed No Abnormality -Temperature (Hayley-wound Skin No Abnormality No Abnormality No Abnormality Appearance) (Pt Warm) (Pt Warm) (Pt Warm) -Tenderness on Palpation (Hayley-wound No No No Skin Appearance) -Ulcer Cleansing Wound Cleanser Soap and Water Soap and Water -Foul Odor after Cleansing No No No -Anesthetic Used 4% Lidocaine 4% Lidocaine 4% Lidocaine Solution Solution Solution -Wound Comment(s) Wound adhered to wound quite a bit even having machine turned off 45 mins prior to visit and 3 vials of saline pushed down vac tubing. Patient started screaming while drape was being removed from periwound and then patient proceeded to scream and crying hysterical stating she wants to be done with all of this and wants her surgery done now and not wait until December. Attempted several times to remove sponge from wound but patient continued to be in pain screaming even after warm water rinsed to ulcer. Patient states she wants to see Tashia now and crying to done and over with all of this. 4% lidocaine applied to wound and Tashia notified of intense pain and aggravation that patient was experiencing. Tashia came down to see patient and assisted me with the removal of the sponge. Successfully, after 10 mins of removing sponge, it all came out and wound cleanser was performed to clean the ulcer and the hayley-wound. New orders was to place vac on hold and to show the application of daily 0.25% Dakin's kerlix to ulcer. Advised patient to take a shower and get the dressing wet prior to removing the dressing. They both verbalized understanding and minimal tape used for comfort, abd binder applied to reinforce the dressings in place. 12/12/22 10:27 Wound Center Nurse 1 #1- ABDOMEN POST OP -Combined with other wound -Current Size (cm) - Length 2 -Current Size (cm) - Width 54.5 -Current Size (cm) - Depth 3.3 -Total Square Cm 109.0 -Date of Last Picture (Recall this field) -Photo Taken -Epithelialization -Tunneling -Undermining/Tunneling -Circular Undermining -Exudate Amt Medium -Exudate Type Sanguineous -Wound Margin Distinct, Outline Attached -Granulation Amt Large (67-100%) -Granulation Quality Red -Slough/Fibrin -Necrosis Amt None Present (0 %) -Necrotic Tissue Type -Structure Exposed N/A -Texture (Hayley-wound Skin Appearance) Scarring -Moisture (Hayley-wound Skin Appearance) No Abnormality -Color (Hayley-wound Skin Appearance) No Abnormality -Temperature (Hayley-wound Skin No Abnormality Appearance) (Pt Warm) -Tenderness on Palpation (Hayley-wound No Skin Appearance) -Ulcer Cleansing Soap and Water -Foul Odor after Cleansing No -Anesthetic Used 4% Lidocaine Solution -Wound Comment(s) WC - Nurse 2 - General Ulcer CM Notes Start: 11/14/22 09:03 Freq: Status: Active Protocol: Activity Type Activity Date Activity User E-sign Co-sign Detail Recorded Client Recorded Date Recorded By Document 11/14/22 09:59 [facility] Laptop 11/14/22 10:00 Document 11/21/22 10:07 [facility] Laptop 11/21/22 10:09 Document 11/28/22 10:24 [facility] Laptop 11/28/22 10:35 Document 12/05/22 10:55 Desktop 12/05/22 10:56 Document 12/12/22 10:50 [facility] Laptop 12/12/22 10:50 11/14/22 11/21/22 11/28/22 09:59 10:07 10:24 Wound Center Nurse 2 #1- ABDOMEN POST OP -Time 10: 10:27 -Correct Patient No Yes Yes -Correct Side, Site, Position No Yes Yes -Correct Procedure No Yes Yes -Procedure Performed No Yes Yes -Type of Procedure Debridement Debridement -Clinical Debridement Subcutaneous Subcutaneous -Tissue Removed Subcutaneous Subcutaneous -Post Debridement (cm) - Length 7 6.5 -Post Debridement (cm) - Width 67 67.8 -Post Debridement (cm) - Depth 7 5.5 -Total Square (Post) (cm) 469 440.70 -Area of Debridement (cm) - Length 7 6.5 -Area of Debridement (cm) - Width 67 67.8 -Total Square (Area) (cm) 469 440.70 -Tunneling No No -Undermining/Tunneling No No -Circular Undermining No No -Wound/Ulcer Outcome Not Healed Not Healed Not Healed -Ulcer Cleansing Rinsed/ Rinsed/ Irrigated with Irrigated with Saline Saline -Foul Odor after Cleansing No No -Bioengineered Tissue No No -Bleeding Controlled with Pressure Silver Nitrate -Treatment Response Procedure Procedure Not Tolerated Well Tolerated Well -Offloading No No -Debridement - Subq, 1st 20sq cm Yes Yes -Debridement, SubQ, ea addt'l 20sq cm 23 22 or part thereof Pain Scale: 0-10 Numeric Is Patient Pain Free? Yes Yes Yes 12/05/22 12/12/22 10:55 10:50 Wound Center Nurse 2 #1- ABDOMEN POST OP -Time 10:55 -Correct Patient Yes No -Correct Side, Site, Position Yes No -Correct Procedure Yes No -Procedure Performed Yes No -Type of Procedure Debridement -Clinical Debridement Subcutaneous -Tissue Removed Subcutaneous -Post Debridement (cm) - Length 4.4 -Post Debridement (cm) - Width 61.0 -Post Debridement (cm) - Depth 0.3 -Total Square (Post) (cm) 268.40 -Area of Debridement (cm) - Length 4.4 -Area of Debridement (cm) - Width 61.0 -Total Square (Area) (cm) 268.40 -Tunneling No -Undermining/Tunneling No -Circular Undermining No -Wound/Ulcer Outcome Not Healed Not Healed -Ulcer Cleansing Rinsed/ Irrigated with Saline -Foul Odor after Cleansing No -Bioengineered Tissue No -Bleeding Controlled with Pressure -Treatment Response Procedure Tolerated Well -Offloading No -Debridement - Subq, 1st 20sq cm Yes -Debridement, SubQ, ea addt'l 20sq cm 13 or part thereof Pain Scale: 0-10 Numeric Is Patient Pain Free? Yes Yes WC - Nurse 3 - General Ulcer D/C NN Start: 11/14/22 09:03 Freq: Status: Active Protocol: Activity Type Activity Date Activity User E-sign Co-sign Detail Recorded Client Recorded Date Recorded By Document 11/14/22 11:28 BMF Desktop 11/14/22 11:29 BMF Document 11/17/22 13:32 RB Desktop 11/17/22 13:34 RB Document 11/21/22 10:12 DL Desktop 11/21/22 10:14 DL Document 11/24/22 15:08 JF Desktop 11/24/22 15:18 JF Document 11/28/22 10:40 DL Desktop 11/28/22 10:42 DL Document 12/05/22 11:07 BMF Desktop 12/05/22 11:07 BMF Document 12/12/22 11:04 BMF Desktop 12/12/22 11:05 BMF 11/14/22 11/17/22 11/21/22 11:28 13:32 10:12 Wound Care Center Nurse 3 #1- ABDOMEN POST OP -Ulcer Cleansing Rinsed/ Wound Cleanser Soap and Water Irrigated with Saline -Foul Odor after Cleansing No No -Negative Pressure Wound Therapy Continue Continue Continue -Setting (mmHg) 150 150 150 -Negative Pressure is Continuous Continuous Continuous -Primary Dressing Applied -Other Dressing -Primary Dressing Covered/Secured with -Other Covering -NPWT Application Charge NPWT > 50 sq cm NPWT > 50 sq cm NPWT & ($) ($) Debridement (nc ) -Optilok 6.5x10 -Optilok 8x12 Treatment Response Procedure Procedure Procedure Tolerated Well Tolerated Well Tolerated Well Vital Signs Temperature (97.8 F-99.1 F) 97 F L Temperature Source Temporal Pulse Rate (60-100) 72 Pulse Location Monitor Respiratory Rate (12-18) 18 Respiratory rate source Observation Blood Pressure (90/60-120/80) 145/70 H Blood Pressure Mean (mm Hg) 95 Source Monitor Position Semi-Fowlers Blood Pressure Location Left Arm Pain Scale: 0-10 Numeric Is Patient Pain Free? Yes Yes Yes WC - Visit Discharge Discharge Condition Stable Stable Stable Ambulatory Status Ambulatory Ambulatory Ambulatory Transportation Private Auto Private Auto Private Auto Accompanied by husb Medication Reconcilliation completed & No provided to patient/care provider Clinical Summary of Care Provided Yes Notes: abdominal binder 11/24/22 11/28/22 12/05/22 15:08 10:40 11:07 Wound Care Center Nurse 3 #1- ABDOMEN POST OP -Ulcer Cleansing Wound Cleanser Soap and Water Rinsed/ Irrigated with Saline -Foul Odor after Cleansing No No No -Negative Pressure Wound Therapy -Setting (mmHg) -Negative Pressure is -Primary Dressing Applied Hysept ($), Optilok 6.5x10 Hysept ($) Optilok 8x12 -Other Dressing dakins ABD; HELD IN PLACE W/ ABD BINDER -Primary Dressing Covered/Secured with Dry Gauze, Secured with Tape -Other Covering -NPWT Application Charge -Optilok 6.5x10 1 -Optilok 8x12 6 Treatment Response Procedure Procedure Tolerated Well Tolerated Well Vital Signs Temperature (97.8 F-99.1 F) Temperature Source Pulse Rate (60-100) Pulse Location Respiratory Rate (12-18) Respiratory rate source Blood Pressure (90/60-120/80) Blood Pressure Mean (mm Hg) Source Position Blood Pressure Location Pain Scale: 0-10 Numeric Is Patient Pain Free? Yes Yes Yes WC - Visit Discharge Discharge Condition Stable Stable Stable Ambulatory Status Ambulatory Ambulatory Ambulatory Transportation Private Auto Private Auto Private Auto Accompanied by Medication Reconcilliation completed & provided to patient/care provider Clinical Summary of Care Provided Notes: Ambulated with at side to private car . Denied dizziness or weakness. Just recovering from the painful dressing removal and states she will be okay. Water provided for the ride home. Wound cultures performed per Tashia's request. 12/12/22 11:04 Wound Care Center Nurse 3 #1- ABDOMEN POST OP -Ulcer Cleansing Rinsed/ Irrigated with Saline -Foul Odor after Cleansing No -Negative Pressure Wound Therapy -Setting (mmHg) -Negative Pressure is -Primary Dressing Applied -Other Dressing dakins moist gauze; abds -Primary Dressing Covered/Secured with -Other Covering secured w/ abd binder -NPWT Application Charge -Optilok 6.5x10 -Optilok 8x12 Treatment Response Procedure Tolerated Well Vital Signs Temperature (97.8 F-99.1 F) Temperature Source Pulse Rate (60-100) Pulse Location Respiratory Rate (12-18) Respiratory rate source Blood Pressure (90/60-120/80) Blood Pressure Mean (mm Hg) Source Position Blood Pressure Location Pain Scale: 0-10 Numeric Is Patient Pain Free? Yes WC - Visit Discharge Discharge Condition Stable Ambulatory Status Ambulatory Transportation Private Auto Accompanied by and daughter Medication Reconcilliation completed & provided to patient/care provider Clinical Summary of Care Provided Notes: Assessment/Plan Assessment/Plan (1) Open wound, abdominal wall, lateral: CODE(S): S31.109A - Unspecified open wound of abdominal wall, unspecified quadrant without penetration into peritoneal cavity, initial encounter (2) Abdominal panniculus: CODE(S): E65 - Localized adiposity (3) Panniculitis: CODE(S): M79.3 - Panniculitis, unspecified (4) Intertrigo: CODE(S): L30.4 - Erythema intertrigo (5) Hidradenitis: CODE(S): L73.2 - Hidradenitis suppurativa (6) Status post panniculectomy: CODE(S): Z98.890 - Other specified postprocedural states PLAN: Plan Patient evaluated at the wound healing center today. No debridement performed today. Wound care - Dakins 0.25% moistened gauze/kerlix covered with ABD or super absorbers daily and as needed. Wash with soap and water daily at the time of the dressing change. Encouraged high protein diet to help with wound healing. Wound culture from 11/24/22 positive for Staphylococcus aureus, Enterococcus faecalis, and Corynebacterium striatum. Anaerobic culture still pending. They are sensitive to Augmentin and Linezolid. Patient has a PCN allergy as a baby but she has taken amoxicillin and Augmentin in the past with no issues and is willing to take Augmentin. She is scheduled next week for an operative closure of this wound. Renewed Percocet (14 tabs) for pain. PDMP reviewed. She states that her pain is improving, but she continues to have discomfort, especially at nigh. Follow up 2 weeks, after surgery.
== END 2022-12-13 23:59 | disposition home or self-care (01) ==
LOC: WC 10:15
PROVIDERS: PCP Family Medicine; Referring Provider Surgery; Visit Provider Nurse Practitioner Family
DX: L73.2 Hidradenitis suppurativa (principal); E65 Localized adiposity; Z98.890 Other specified postprocedural states; L30.4 Erythema intertrigo; M79.3 Panniculitis, unspecified; S31.109A Unspecified open wound of abdominal wall, unspecified quadrant without penetration into peritoneal cavity, initial encounter
CPT/HCPCS: G0463; 11042; 11045; 87070; 87075; 87077; 87186; 87205; 97606; 99211; 99214; 99215

== ENCOUNTER 2022-12-19 17:47 | Observation (INO) | payer MEDICAID, SELFPAY ==
[2022-12-19] VITALS (12 sets, daily range): BP systolic 101–139; BP diastolic 50–87; PULSE 65–102; RESP 14–18; TEMP 36.2–36.8; O2SAT 92–99; BMI 41.2
[2022-12-19] MEDS: Lactated Ringers 1,000 ML 15 ML IV (10:34)
--- NOTE | 2022-12-19 11:40 | ABS_PTH ---
PATIENT: ELLIOTT KATZ LOC: MS3 U#:[id number] AGE/SX: 37/F ROOM: ID324 RE12/19/[address]: Dr. Aman Hollins MD : 1985 BED: 1 DIS: 12/21/2022 SPEC #: [id number] RECD: 12/19/22 16:55 STATUS: TYSHAWN BOBBY #: [id number] ENA: 12/19/22 11:[address]: Aman Hollins DEPT: SURGICAL PATHOLOGY RECD BY: Mary Kay Sargent ENTERED: 12/20/22 08:04 SP TYPE: Abscess OTHR DR: Dr. Og Hopson, DO Tissues: Abdominal wall, NOS Procedures: Surgery Specimen Level III HEADER OPERATION: Sugical preparation lower anterior abdominal wall PRE-OP DIAGNOSIS: Nonhealing abdominal wall wound TISSUE SUBMITTED: Nonhealing abdominal wall wound MICROSCOPIC DIAGNOSIS Nonhealing abdominal wall wound, excision: Ulceration, acute and chronic inflammation, granulation tissue reaction and fat necrosis. SJ: 12/21/2022 MICROSCOPIC DESCRIPTION Slides are reviewed. GROSS DESCRIPTION Received in fixative is one container labeled with the patient name and designated nonhealing abdominal wall wound. The specimen consists of multiple skin and adipose tissue measuring 21 x 10 x 7 cm. Skin surface shows extensive ulceration. No mass lesion is identified. Secretarial Teacher sections are submitted in four cassettes. /HARRY:duarte 12/20/22 TC:2 CPT: 93083
[2022-12-19] MEDS: Lidocaine 1% /Epi 1:100 (20ml) 20 ML Vial (13:30)
--- NOTE | 2022-12-19 17:09 | HP.PCM_ITS ---
History and Physical Date of Admission: 12/19/22 HISTORY OF PRESENT ILLNESS 37 year old woman presents with worsening pain and redness and some odor in her abdominal wall skin crease. She has some intertrigo for which she has used powders and antifungals with minimal relief and no resolution. She recently gave 10 months ago. She also has bilateral inguinal hidradenitis but not bothering her at this time. She denies fever. She denies trauma. She denies recent infection. We have received medical approval for her panniculectomy. She went to surgery on 11/09/22 where she underwent an abdominal panniculectomy. She had issues with the VAC postoperatively with increased pain from the suction and with losing suction at times. On 11/24/22 during a VAC change, there was an odor and drainage that prompted a wound culture. The culture was positive for Staphylococcus aureus, Enterococcus faecalis, and Corynebacterium striatum. She was started on Augmentin and tolerating it. The VAC was stopped and Dakin's dressing changes started. The wound improved with less more tolerable pain. With the issues that she was having, she is anxious to get the wound closed which would help with her pain and it would help to get her back to work a little sooner. Further surgery was discussed with the patient with surgical preparation lower anterior abdominal wall with excisional debridement nonhealing infected wound and complex secondary wound closure. She was in agreement and wished to proceed. PAST MEDICAL HISTORY Abdominal panniculus Advanced maternal age (AMA) in Alcohol use Anemia Anxiety and depression COVID CPAP (continuous positive airway pressure) dependence Easy bruising Fatigue Gastric reflux Gastrointestinal problem Goiter Jocelyn's disease Hidradenitis Hormone deficiency Hx of hypotension Hypothyroidism (acquired) Intertrigo Intradermal nevus of face Intradermal nevus of neck Intradermal nevus of torso Leg cramps Macrosomia of fetus affecting management of mother Migraine headache Non-smoker Panniculitis Restless legs Rh negative status during Shortness of breath on exertion Supervision of high risk , unspecified, first trimester Thyroid disease PAST SURGICAL HISTORY Gave to child recently H/O bilateral salpingectomy History of excision of lesion History of incision and drainage History of nasal surgery Hx of arthroscopy of right knee Hx of tonsillectomy Status post vaginal delivery Abdominal panniculectomy - 11/09/22 ALLERGIES latex penicillin G shellfish sulfamethoxazole [From Bactrim] trimethoprim [From Bactrim] MEDICATIONS prenat.vits,kelly,vny-ntwh-iwwja nystatin topical powder (Nystop) nystatin-triamcinolone topical cream FAMILY HISTORY Anemia, Anesthesia complication, Asthma, CVA (cerebral vascular accident), Depression, Diabetes, Hypertension, Thyroid disorder SOCIAL HISTORY Smoking Status: Never smoker alcohol intake: current substance use type: does not use REVIEW OF SYSTEMS General - Denies fever and weight loss. Has fatigue. Eyes - Denies cataracts and glaucoma. ENT - Denies nasal congestion and sore throat. Has chronic sinus problems. Has history of sore throat. Has history swollen glands in neck. Endocrine - Denies excessive thirst and urination. Skin - Denies suspicious lesions and skin cancer. Has abdominal wall wound after panniculectomy. Has bilateral inguinal hidradenitis, but not bothering her at this time. Musculoskeletal - Denies joint pain, joint stiffness, weakness of muscles and joints, back pain, and arthritis. Neuro - Has headaches. Cardiovascular - Denies chest pain, fatigue, and shortness of breath with exertion. Psych - Denies anxiety and depression. Respiratory - Denies chronic cough and shortness of breath. Gastrointestinal - Denies nausea, vomiting, diarrhea, and constipation. Hematologic - Denies abnormal bruising and bleeding. Has anemia. Genitourinary - Denies hematuria and urinary frequency. PHYSICAL EXAMINATION General - Alert and Oriented. HEENT - PERRL. EOMI. Throat is clear. Neck - Supple and nontender. No cervical adenopathy. Lungs - Clear to auscultation. Heart - Regular rate and rhythm. Abdomen - Soft and nondistended. Has large lower anterior abdominal wall wound from previous panniculectomy. Good granulation tissue seen. No redness, fluctuance, or purulent drainage. Wound measures 57 x 4 x 3 cm or 228 cm2. Some tenderness noted in the wound. Has bilateral inguinal hidradenitis. Nontender. Induration present. No purulent drainage noted. Extremities - FROM. Dorsalis pedis and radial pulses are palpable. No inguinal adenopathy. No axillary adenopathy. Neuro - CN II-XII grossly intact. Psych - Normal mood and affect. ASSESSMENT 1. Painful open nonhealing surgical wound lower anterior abdominal wall. 2. Abdominal panniculus. 3. Status abdominal panniculectomy. 4. Bilateral inguinal hidradenitis, stable. PLAN Has large lower anterior abdominal wall wound after abdominal panniculectomy. Also has bilateral inguinal hidradenitis that is stable and not bothering her at this time. She was having problems with the VAC with increased pain and trouble with the seal. Subsequently a wound infection developed. On 11/24/22 a wound culture showed Staphylococcus aureus, Enterococcus faecalis, and Corynebacterium striatum. She was started on Augmentin. The VAC was stopped and Dakin's dressi ng changes started. She is tired of the wound care with caring for her children at home. Today she is having surgical preparation lower anterior abdominal wall with excisional debridement nonhealing infected wound with complex secondary wound closure. Patient was informed of the risks and complications of the procedure including alternatives to surgery. These were discussed with the patient personally. Patient voices understanding and wishes to proceed. Some of the risks and complications were included in a form from the [employer]. It will be done under general anesthesia with a surgical observation overnight stay in the hospital. Assessment & Plan Assessment/Plan (1) Open wound anterior abdominal wall: (2) Abdominal panniculus: (3) Status post panniculectomy: (4) Hidradenitis:
--- NOTE | 2022-12-19 18:19 | OP.PCM_ITS ---
Problems Associated Problem List Diagnoses (1) Open wound anterior abdominal wall: (2) Abdominal panniculus: (3) Status post panniculectomy: Report of Operation Date of Procedure: 12/19/22 Pre-Operative Diagnosis: 1. Open wound lower anterior abdominal wall. 2. Abdominal panniculus. 3. Status abdominal panniculectomy. Post-Operative Diagnosis: Same. Surgery/Procedure Performed:: Surgical preparation lower anterior abdominal wall with excision painful infected nonhealing wound (240 cm2) and 64 cm complex secondary wound closure. Description of Surgical Findings:: 37 year old woman presents with worsening pain and redness and some odor in her abdominal wall skin crease. She has some intertrigo for which she has used powders and antifungals with minimal relief and no resolution. She recently gave 10 months ago. She also has bilateral inguinal hidradenitis but not bothering her at this time. She denies fever. She denies trauma. She denies recent infection. We have received medical approval for her panniculectomy. She went to surgery on 11/09/22 where she underwent an abdominal panniculectomy. She had issues with the VAC postoperatively with increased pain from the suction and with losing suction at times. On 11/24/22 during a VAC change, there was an odor and drainage that prompted a wound culture. The culture was positive for Staphylococcus aureus, Enterococcus faecalis, and Corynebacterium striatum. She was started on Augmentin and tolerating it. The VAC was stopped and Dakin's dressing changes started. The wound improved with less more tolerable pain. With the issues that she was having, she is anxious to get the wound closed which would help with her pain and it would help to get her back to work a little sooner. Further surgery was discussed with the patient with surgical preparation lower anterior abdominal wall with excisional debridement nonhealing infected wound and complex secondary wound closure. She was in agreement and wished to proceed. Patient was informed of the risks and complications of the procedure including alternatives to surgery. These were discussed with the patient personally. Patient voices understanding and wishes to proceed. Some of the risks and complications were included in a form from the [employer]. Potential risks and complications included but not inclusive of bleeding, infection, seroma, hematoma, bruising, swelling, prolonged need for drains, loss of sensation to skin, partial or complete loss of skin flap and/or skin graft, wound breakdown, need for wound care, poor scarring, poor aesthetic outcome, intra operative cardiac or neurologic events, DVT, PE, and reaction to anesthesia. I used Alyssa absorbable hemostat, (I used 6 vials in the anterior abdominal wall wound). Reference Number - [id number]. Lot Number - [id number]. Device ID Number - [id number]. Expiration - June 11, 2027, (4 vials). Reference Number - [id number]. Lot Number - [id number]. Device ID Number - [id number]. Expiration - January 10, 2027, (One vial). Reference Number - [id number]. Lot Number - [id number]. Device ID Number - [id number]. Expiration - June 11, 2027, (One vial). Surgeon: Aman Hollins MD produce buyer: Tomas Young RNFA produce buyer: Samir Grider RNFA Type of Anesthesia: General Anesthesiologist: Cedric Barnes MD and China Brooks CRNA Specimen's removed: Abdominal wall tissue to Pathology and Microbiology. Drains: Torsten x2. Estimated Blood Loss (mL): 200. Fluids Replaced: IV Fluids 2500 ml. Description of Procedure: Patient was taken to OR in supine position and was placed under general anesthesia. The lower anterior abdominal wall was prepped and draped in the usual fashion. SCD's were placed for DVT prophylaxis. Perioperative antibiotics were given intravenously. Using xylocaine with epinephrine, the lower anterior abdominal wall wound was infiltrated. After waiting 5 minutes for the anesthetic to take effect, I proceeded with surgical preparation lower anterior abdominal wall with excision nonhealing infected wound. The excision went down to the abdominal wall fascia. Laterally I left some subcutaneous tiss ue to minimize injury to the lateral femoral cutaneous nerve. On the superior skin flap, I excised and debrided fat necrosis in the sub- Doug's area up to the umbilicus. No pus was seen. Tissue was sent to Pathology for analysis to real out carcinoma. If carcinoma is present, then further excision will be done with skin flap or skin graft reconstruction. Tissue was also sent to Microbiology for culture. A positive culture will necessitate antibiotic therapy. Hemostasis was obtained with electrocautery. The size of the abdominal wall wound measures 61 x 4 cm or 224 cm2. The wound was irrigated with saline. Using a size 15 scalpel, I made two puncture wounds on the inferolateral sides of the wound. They were secured to the skin with 3-0 Nylon purse string suture. I then sprayed Alyssa absorbable hemostat into the wound to minimize seroma formation. I used six vials. I then closed the lower anterior abdominal wall wound in a complex multiple-layered fashion. Doug's fascia was approximated with 2-0 Vicryl figure of eight sutures. This was followed by 3-0 Monocryl for the deep subcutaneous tissue and 3-0 V-loc unidirectional barbed running subcuticular suture. This was followed by Histoacryl skin tissue adhesive. The length of the complex closure of the lower anterior abdominal wall wound is 64 cm. Kerlix gauze and ABD pads were placed followed by an abdominal binder that she will wear fo 6 weeks. Patient tolerated the procedure well and was sent to PACU in satisfactory condition. Patient will be sent upstairs for continued postop care. Grafts/Implants Used: Alyssa Procedure Start Time: 13:29 Procedure Stop Time: 16:54 Complications None. Admit VTE Documentation VTE Present on Admission: No VTE Mechan Device Prophylaxis: SCD's VTE Pharm Prophylaxis ordered?: Yes Addendum Addendum: Surgery Charges CPT - 68929 ICD-10 - S31.109A, E65, Z98.890 12784 S31.109A, E65, Z98.890 87228 S31.109A, E65, Z98.890 09511 S31.109A, E65, Z98.890
[2022-12-19] MEDS: Ampicillin/Sulbactam 3 GM in 0.9% Normal Saline (100mL MB+) 100 ML IV ×2 (20:00→23:45)
[2022-12-19] MEDS: oxyCODONE 5 MG Tablet 10 MG PO (21:17)
[2022-12-19] MEDS: Heparin Injection (Vial) 5,000 UNIT/ML VIAL 5000 UNIT SC (21:17)
[2022-12-20] MEDS: oxyCODONE 5 MG Tablet 10 MG PO ×5 (02:19→23:54)
[2022-12-20] MEDS: HYDROmorphone 1 MG/ML Syringe IV (04:27)
[2022-12-20 04:29] VITALS: BP 131/71; PULSE 80; RESP 16; TEMP 36.6; O2SAT 97
[2022-12-20] MEDS: Ampicillin/Sulbactam 3 GM in 0.9% Normal Saline (100mL MB+) 100 ML IV ×4 (06:40→23:54)
[2022-12-20 08:02] LABS: Hemoglobin 9.1 g/dL (12.0-15.0); Mean Corp Hgb Conc 30.3 g/dL (32-36); Mean Corpuscular Hgb 26.5 pg (27.0-32.0); Mean Corpuscular Volume 87.2 fL (81-99); Mean Platelet Vol. 9.3 fl (6.2-12.0); Platelet Count 318 K/mm3 (150-450); RBC Distribution Width CV 13.4 % (11.6-14.6); RBC Distribution Width SD 41.9 fl (35.1-43.9); Red Blood Count 3.44 M/mm3 (4.2-5.4); White Blood Count 13.4 K/mm3 (4.4-11.0)
[2022-12-20 08:30] VITALS: BP 118/58; PULSE 90; RESP 18; TEMP 36.7; O2SAT 94; O2SAT 95
[2022-12-20 08:43] LABS: Anion Gap 2 (5-15); BUN 8 mg/dL (7-18); BUN/Creat Ratio 12.5 RATIO (10-20); Chloride 106 mmol/L (98-107); Creatinine, Serum 0.64 mg/dL (0.55-1.02); EST Glomerular Filtration Rate 111 mL/min (>60); Est Glom Filt Rate - Afr Amer 134 mL/min (>60); Estimated Creatinine Clearance 103.93 ml/min; Glucose 118 mg/dL (74-106); Potassium 3.8 mmol/L (3.5-5.1); Sodium Level 137 mmol/L (136-145)
[2022-12-20] MEDS: diazePAM 5 MG Tablet PO ×2 (09:04→15:52)
[2022-12-20] MEDS: Juven (unflavored) Packet 1 PACKET PO ×2 (09:04→16:23)
[2022-12-20] MEDS: Heparin Injection (Vial) 5,000 UNIT/ML VIAL 5000 UNIT SC ×2 (09:05→20:37)
[2022-12-20] MEDS: Lactated Ringers 1,000 ML 60 ML IV (11:55)
--- NOTE | 2022-12-20 13:40 | PCM.PN.SRG ---
Subjective Subjective Postop #1 Patient states this surgery is more painful than her previous surgery in October,. Needs IV analgesia. Objective Data Objective Data Vital Signs: Vital Signs Temp Pulse Resp BP Pulse Ox O2 Del Method O2 Flow Rate 98.1 F 90 18 118/58 L 94 Room Air 2 12/20/22 08:30 12/20/22 08:30 12/20/22 08:30 12/20/22 08:30 12/20/22 08:30 12/20/22 08:30 12/20/22 04:29 Oxygen Flow Rate (L/min) 2 Oxygen Delivery Method Room Air Weight: 240 lb 4.862 oz Body Mass Index (BMI) 41.2 Intake & Output: Intake and Output for Last 24 Hours 12/18/22 12/19/22 12/20/22 23:59 23:59 23:59 Intake Total 162 / 662 1673.75 / 1673.75 Output Total 460 / 1190 1680 / 1680 Balance -298 / -528 -6.25 / -6.25 Drainage 90 ml yesterday Prealbumin is 18.0. Encourage nutritional supplementation with protein to help the healing process. Lab / Micro Data Attestation: I reviewed the patient's lab results. Lab results narrative: Hgb is 9.1 today. She has acute postoperative anemia from expected blood loss. Intraoperative blood loss was 200 ml. Will recheck Hgb. Will start on Iron supplementation. Will also check a Hgb after discharge. 12/21/22 06:55 12/20/22 07:47 Labs: Laboratory Results - last 24 hr 12/20/22 07:47: WBC 13.4 H, RBC 3.44 L, Hgb 9.1 L, Hct 30.0 L, MCV 87.2, MCH 26.5 L, MCHC 30.3 L, RDW Std Deviation 41.9, RDW Coeff of Sarika 13.4, Plt Count 318, MPV 9.3, Sodium 137, Potassium 3.8, Chloride 106, Carbon Dioxide 29.0, Anion Gap 2 L, BUN 8, Creatinine 0.64, Estim Creat Clear Calc 103.93, Est GFR (MDRD) Af Amer 134, Est GFR (MDRD) Non-Af 111, BUN/Creatinine Ratio 12.5, Glucose 118 H, Calcium 8.0 L, Prealbumin 18.0 L Micro: Microbiology 12/19/22 14:02 Wound - Abdominal Wound Culture - Preliminary No growth-Final to follow Physical Exam Narrative General - Alert and Oriented HEENT - PERRL. EOMI. Neck - Supple and nontender. Abdomen - Incision dry and intact. Has incisional tenderness. No firmness. No clinical evidence of hematoma. Neuro - CN II-XII grossly intact. Psych - Normal mood and affect. Assessment & Plan Assessment/Plan (1) Open wound anterior abdominal wall: (2) Abdominal panniculus: (3) Status post panniculectomy: (4) Acute postoperative anemia due to expected blood loss: (5) Hidradenitis: PLAN: Plan Patient has a lot of incisional pain after surgery. She still needs IV analgesia. Incision is dry and intact. Has incisional tenderness. Hgb is 9.1 today. She has acute postoperative anemia from expected blood loss. Intraoperative blood loss was 200 ml. Will recheck Hgb. Will start on Iron supplementation. Will also check a Hgb after discharge. Prealbumin is 18.0. Encourage nutritional supplementation with protein to help the healing process. Operative culture is negative thus far. Continue Unasyn. Encourage ambulation with assist. It should help her postop pain. Will keep her one more day. Will wean to po analgesia for discharge.
[2022-12-20 16:29] VITALS: BP 113/61; PULSE 102; RESP 16; TEMP 37.3; O2SAT 98
--- NOTE | 2022-12-20 18:20 | NURSING ---
This RN is aware of Vitals taken this afternoon by Matilda LIGHT.
[2022-12-20 20:30] VITALS: BP 119/57; PULSE 102; RESP 16; TEMP 36.7; O2SAT 97
[2022-12-21 02:00] VITALS: BP 107/55; PULSE 104; RESP 18; TEMP 37.1; O2SAT 96
[2022-12-21] MEDS: Lactated Ringers 1,000 ML 60 ML IV (05:01)
[2022-12-21] MEDS: Ampicillin/Sulbactam 3 GM in 0.9% Normal Saline (100mL MB+) 100 ML IV ×2 (05:01→14:07)
[2022-12-21] MEDS: oxyCODONE 5 MG Tablet 10 MG PO ×2 (05:05→09:56)
[2022-12-21 07:19] LABS: Hematocrit 29.4 % (37-47); Hemoglobin 8.6 g/dL (12.0-15.0); Mean Corp Hgb Conc 29.3 g/dL (32-36); Mean Corpuscular Hgb 25.6 pg (27.0-32.0); Mean Corpuscular Volume 87.5 fL (81-99); Mean Platelet Vol. 9.3 fl (6.2-12.0); Platelet Count 295 K/mm3 (150-450); RBC Distribution Width SD 45.1 fl (35.1-43.9); Red Blood Count 3.36 M/mm3 (4.2-5.4); White Blood Count 11.2 K/mm3 (4.4-11.0)
[2022-12-21 07:30] VITALS: BP 121/64; PULSE 100; RESP 18; TEMP 36.9; O2SAT 98
[2022-12-21] MEDS: Juven (unflavored) Packet 1 PACKET PO (07:59)
[2022-12-21 09:00] VITALS: RESP 18
--- NOTE | 2022-12-21 09:20 | CASEMGMT ---
Addendum entered by Mariya Pryor 12/21/22 10:00: NADEGE ZELAYA provided pt. with application for temporary handicap parking permit as well as instructions on documentation she will need to apply for this. NADEGE ZELAYA explained to pt. that she will need to fill out the application herself and will need a script from a healthcare provider. NADEGE ZELAYA informed pt. that I have asked if Tashia Bourne NP will sign a script for this, but if not, NADEGE ZELAYA encouraged pt. to follow-up with her PcP about getting a script for this. Pt. voiced understanding. No further concerns voiced at this time. Original Note: NADEGE ZELAYA in to pt. room to discuss pt. comfort level with caring for her wound and rain at home. Pt. 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 Pt. states her preferred pharmacy for this admission is [facility]. She also states she already has a shower chair (for when she is allowed to shower) and a walker at home. Pt. does ask if she could get a temporary handicap parking pass. NADEGE ZELAYA informed pt. I will look into this for her. Pt. denies having any additional questions/concerns at this time. NADEGE ZELAYA sent backline to Tashia Bourne inquiring about the temporary handicap parking pass script.
[2022-12-21] MEDS: Docusate Sodium 100 MG Capsule PO (09:56)
[2022-12-21] MEDS: Iron Polysaccharide Complex 150 MG CAPSULE PO (09:57)
[2022-12-21] MEDS: Thyroid 60 MG Tablet PO (09:57)
[2022-12-21] MEDS: Heparin Injection (Vial) 5,000 UNIT/ML VIAL 5000 UNIT SC (09:57)
--- NOTE | 2022-12-21 13:45 | CASEMGMT ---
NADEGE ZELAYA in to pt. room and provided pt. with signed script for removable, temporary window placard. NADEGE ZELAYA informed pt. that I placed it, along with the application she will need to fill out, in her discharge folder. Pt. denies having any further questions/concerns at this time.
[2022-12-21] MEDS: diazePAM 5 MG Tablet PO (14:08)
[2022-12-21 14:35] VITALS: BP 125/57; PULSE 98; RESP 18; TEMP 37.1; O2SAT 95
--- NOTE | 2022-12-21 14:56 | PCM.DC ---
Discharge Instructions Diet Discharge Diet: No restrictions (High protein diet) Activity Discharge Activity: May Not Drive Lifting Restrictions: 10-15 lb weight lifting restriction Additional Activity Instructions:: Ambulate hourly while awake for 5-10 minutes. Use incentive spirometer 10 x/every hour while awake. Dressing / Incision Call your doctor if your incision/area has: Continuous Slow Oozing, Sudden Increased Bleeding, Increased Pain/ Swelling, Increased Redness and Foul Smelling Discharge Call your doctor if you observe: Fever of 101 or Higher, Inability to urinate, Inability to have a bowel movement, Shortness of breath, Chest pain, Calf discomfort and Uncontrolled pain Change Dressing in: leave in place till F/U Drain: Suction Additional Dressing/Incision Instructions:: Leave dressing in place until follow up. If have increased drainage may change at that time. Keep track of Torsten drainage Follow Up Care Please Follow Up With: Tashia Bourne NP, [facility] When: MondayDecember 28 at 0900 am in our office (NOT the wound center). Test Results: Test results from this visit will be discussed in further detail at your follow-up appointment, if applicable. Discharge Plan Admission Admit Date/Time: 12/19/22 17:47 Attending Provider: Aman Hollins Primary Care Provider: Og Hopson Discharge Orders/Prescriptions Prescriptions: New polysaccharide iron complex [Ferrex 150] 150 mg iron Capsule 150 mg PO DAILY 30 Days Qty: 30 0RF oxycodone-acetaminophen [Percocet] 5-325 mg tablet 1 tab PO Q6H PRN (Reason: pain (scale score 7-10)) 7 Days Qty: 28 0RF Continued docusate sodium [Colace] 100 mg capsule 100 mg PO DAILY 15 Days Qty: 15 0RF diazepam [Valium] 5 mg tablet 5 mg PO BID PRN (Reason: muscle spasm) 7 Days Qty: 14 0RF Rx Instructions: Take one tablet twice daily as needed for muscle spasms amoxicillin-pot clavulanate 875-125 mg tablet 1 tab PO Q12H 14 Days Qty: 28 0RF dextroamphetamine-amphetamine [Adderall] 30 mg tablet 30 mg PO DAILY dextroamphetamine-amphetamine [Adderall] 10 mg tablet 10 mg PO 1200 ropinirole 2 mg tablet 2 mg PO QHS PRN PRN (Reason: restless leg(s)) thyroid (pork) [Niva Thyroid] 60 mg tablet 60 mg PO DAILY Discontinued hydromorphone [Dilaudid] 2 mg tablet 2 mg PO Q6H PRN (Reason: pain (scale score 7-10)) 7 Days Qty: 28 0RF Rx Instructions: 28 tabs (twenty-eight) Referrals / Follow Up: Og Hopson DO [Primary Care Provider] - Disposition Disposition (needs filled in before D/C Order can be placed): Home, Self Care
--- NOTE | 2022-12-21 15:19 | PCM.PN.SRG ---
Subjective Subjective Postop #2 Patient states pain is better controlled today. She states she has been feeling nauseated. Objective Data Objective Data Vital Signs: Vital Signs Temp Pulse Resp BP Pulse Ox O2 Del Method O2 Flow Rate 98.8 F 98 18 125/57 H 95 Nasal Cannula 2 12/21/22 14:35 12/21/22 14:35 12/21/22 14:35 12/21/22 14:35 12/21/22 14:35 12/21/22 14:35 12/21/22 14:35 Oxygen Flow Rate (L/min) 2 Oxygen Delivery Method Nasal Cannula Weight: 240 lb 4.862 oz Body Mass Index (BMI) 41.2 Intake & Output: Intake and Output for Last 24 Hours 12/19/22 12/20/22 12/21/22 23:59 23:59 23:59 Intake Total 162 / 662 2695.75 / 2695.75 2023 Output Total 460 / 1190 3963 / 4783 2049 Balance -298 / -528 -1267.25 / -2087.25 -26 / -26 Left Torsten drain 50 ml Right Torsten drain 150 ml. Lab / Micro Data Attestation: I reviewed the patient's lab results. 12/21/22 06:55 12/20/22 07:47 Labs: Laboratory Results - last 24 hr 12/21/22 06:55: WBC 11.2 H, RBC 3.36 L, Hgb 8.6 L, Hct 29.4 L, MCV 87.5, MCH 25.6 L, MCHC 29.3 L, RDW Std Deviation 45.1 H, RDW Coeff of Sarika 14.0, Plt Count 295, MPV 9.3 Micro: Microbiology 12/19/22 14:02 Wound - Abdominal Gram Stain - Final 12/19/22 14:02 Wound - Abdominal Wound Culture - Preliminary Mixed Culture Physical Exam Const alert and oriented x3 General Appearance: cooperative HEENT normocephalic Eyes General Eye: normal appearance of both eyes Resp normal respiratory effort Effort and Inspection: able to speak in complete sentences Cardio regular rate GI soft to palpation Extremity full ROM and normal capillary refill Skin Wound Narrative: Lower abdominal incision dressing is dry and intact. Torsten drains draining serosanguineous drainage. Neuro oriented x3 Psych mental status grossly normal Assessment & Plan Assessment/Plan (1) Open wound anterior abdominal wall: (2) Status post panniculectomy: (3) Acute postoperative pain: (4) Panniculitis: (5) Intertrigo: PLAN: Plan Pain is controlled with oral pain meds. Her Hgb is 8.6, will continue iron supplementation and will recheck CBC next week. She is to limit her lifting to 10-15 lbs. She is to continue to wear the Abdominal binder for compression. Dressing is dry and intact. She can leave it in place until she is seen in the office. She is to keep track of Torsten drainage. Will send her home with Percocet (28 tabs) for pain. PDMP reviewed. Valium for muscle spasm as needed, she is not to take at the same time as the pain medication. Zofran for nausea. She has an appointment to follow up at the office on 12/28/22. She may be discharged home today.
--- NOTE | 2022-12-21 15:43 | CASEMGMT ---
Pt. has order in for discharge. NADEGE ZELAYA in to pt. room to assess need at discharge. Pt. denies having needs at this time. She states she has been getting up with just one person present for safety. Pt. states she is feeling nauseous and has a washcloth over her eyes to help with a headache she has. Pt. asks NADEGE ZELAYA to inform her nurse about the nausea. NADEGE ZELAYA told pt. I will inform her nurse. Pt. states her boyfriend will not be able to be here to pick her up for a couple hours. Pt. denies having any additional questions/concerns at this time. NADEGE ZELAYA informed pt.'s nurse that pt. was reporting nausea and asking if she could have something for it.
[2022-12-21] MEDS: Ondansetron 4 MG/2 ML Vial IV (16:31)
[2022-12-21] MEDS: 0.9% Saline Lock 10 ML Syringe IV (16:31)
[2022-12-21 17:22] VITALS: BP 119/64; PULSE 98; RESP 18; TEMP 36.3; O2SAT 99
== END 2022-12-21 19:05 | disposition home or self-care (01) ==
LOC: SDC 18:46 → MS3 18:46
PROVIDERS: Admitting Provider Surgery; PCP Family Medicine; Referring Provider Surgery; Visit Provider Surgery
PROC: (CPT 15002; principal; 2022-12-19 11:25)
DX: L30.4 Erythema intertrigo (principal); D62 Acute posthemorrhagic anemia; Z86.16 Personal history of COVID-19; L73.2 Hidradenitis suppurativa; S31.109A Unspecified open wound of abdominal wall, unspecified quadrant without penetration into peritoneal cavity, initial encounter; X58.XXXA Exposure to other specified factors, initial encounter; M79.3 Panniculitis, unspecified
CPT/HCPCS: 15002; 15003 ×2; 13160; 00400; J2405; 36415; 80048; 84134; 85027; 87070; 87075; 87102; 87186; 87205; 87206; 88304; 94668; 96365; 96366; 96372; 96375; 96376; 99221; 99252; J7120; A4216; G0378; G0463; J0295

== ENCOUNTER → 2022-12-28 | Outpatient (CLI) | payer MEDICAID, SELFPAY ==
[2022-12-28 10:09] LABS: Hematocrit 32.7 % (37-47); Hemoglobin 9.6 g/dL (12.0-15.0); Mean Corp Hgb Conc 29.4 g/dL (32-36); Mean Corpuscular Hgb 24.9 pg (27.0-32.0); Mean Corpuscular Volume 84.7 fL (81-99); Mean Platelet Vol. 9.6 fl (6.2-12.0); Platelet Count 452 K/mm3 (150-450); RBC Distribution Width CV 13.9 % (11.6-14.6); Red Blood Count 3.86 M/mm3 (4.2-5.4); White Blood Count 11.5 K/mm3 (4.4-11.0)
== END | disposition home or self-care (01) ==
LOC: PAVLAB 09:29
PROVIDERS: PCP Family Medicine; Referring Provider Nurse Practitioner Family; Visit Provider Nurse Practitioner Family
DX: D62 Acute posthemorrhagic anemia (principal)
CPT/HCPCS: 36415; 85027

== ENCOUNTER 2023-03-20 11:52 | Day surgery (SDC) | payer MEDICAID, SELFPAY ==
--- NOTE | 2023-03-20 11:58 | PCM.HP.BLA ---
History and Physical Date of Admission: 03/20/23 Intake Vital Signs 01/26/2315:44 03/17/2413:23 Height 5 ft 4 in 5 ft 4 in Weight: 238 lb BMI 40.8 BP 110/76 Blood Pressure Location Rt brachial Position Sitting Respiration 18 17 Pulse 93 87 Pulse Source Monitor Monitor Temp 99.4 F H 96.6 F L Temp Source Temporal Temporal Pulse Oximetry (%) 99 98 Oxygen Delivery Method room air room air Intake Visit Reasons: GALLBLADDER Chief Complaint: gallbladder Is patient in pain?: Yes Allergies latex Allergy (Intermediate, Verified 03/17/23 15:13) body rashpenicillin G Allergy (Verified 03/17/23 15:13) Hives as a child. No reaction as an adultshellfish derived Allergy (Verified 03/17/23 15:13) Rashsulfamethoxazole [From Bactrim] Allergy (Verified 03/17/23 15:13) Anaphylaxistrimethoprim [From Bactrim] Allergy (Verified 03/17/23 15:13) Anaphylaxishydrocodone Adverse Reaction (Intermediate, Verified 03/17/23 15:13) Nausea/Vom/Diarrhea Medications dextroamphetamine-amphetamine 10 mg tablet (Adderall) 10 mg PO .MOTUWETHFR NOON 10/31/22 [History Confirmed 03/17/23] dextroamphetamine-amphetamine 30 mg tablet (Adderall) 30 mg PO MOTUWETHFR 10/31/22 [History Confirmed 03/17/23] ropinirole 2 mg tablet 2 mg PO QHS PRN PRN restless leg(s) 10/31/22 [History Confirmed 03/17/23] thyroid (pork) 60 mg tablet (Niva Thyroid) 60 mg PO DAILY PRN SYMPTOMATIC JOCELYN 11/01/22 [History Confirmed 03/17/23] docusate sodium 50 mg capsule 50 mg PO DAILY PRN constipation 03/17/23 [History Confirmed 03/17/23] omeprazole 40 mg capsule,delayed release 40 mg PO DAILY #30 caps 03/17/23 [Rx Confirmed 03/17/23] sucralfate 1 gram tablet (Carafate) 1 g PO QACHS #60 tabs 03/17/23 [Rx Confirmed 03/17/23] PFSH Medical History Abdominal panniculus Acute postoperative anemia due to expected blood loss Advanced maternal age (AMA) in Alcohol use Anemia Anxiety and depression Contraception management COVID CPAP (continuous positive airway pressure) dependence Fatigue Gastric reflux Goiter Jocelyn's disease Hidradenitis Hormone deficiency Hx of hypotension Hypothyroidism (acquired) Intertrigo Intradermal nevus of face Intradermal nevus of neck Intradermal nevus of torso Leg cramps Macrosomia of fetus affecting management of mother Migraine headache Migraine headache Non-smoker Nonhealing surgical wound Open wound anterior abdominal wall Open wound, abdominal wall, lateral Panniculitis Restless legs Rh negative status during Seasonal allergies Shortness of breath on exertion Skin yeast infection Supervision of high risk , unspecified, first trimester Thyroid disease UTI (urinary tract infection) Surgical History H/O bilateral salpingectomy History of excision of lesion History of incision and drainage History of nasal surgery Hx of arthroscopy of right knee Hx of surgical procedure Hx of tonsillectomy Status post vaginal delivery Family History Other Anemia Anesthesia complication Asthma CVA (cerebral vascular accident) Depression Diabetes Hypertension Thyroid disorder Social History household members: spouse and children housing: house current occupational status: employed Smoking Status: Never smoker alcohol intake: current details: pre substance use type: does not use caffeine: Yes seatbelt use: always do you feel safe at home: Yes additional social history: Dario- works at a [employer] patient works at a [employer] Female Reproductive History Menstrual Ab induced: 0 Ab spontaneous: 0 Ectopics: 0 HPI HPI HPI: Patient is a 38-year-old female here with abdominal pain. She says that about a week and a half ago she had an episode that awoke her from sleep. This is never happened in the past. She said the pain was in her back and radiated around her left side and sometimes radiates around her right side. She says that it happens especially after eating and she said it happens within 30 minutes. She says she is having severe nausea and has not been able to eat much lately. She said that she is also having bloating and diarrhea. She was recently in the emergency room and had a CT scan that showed gallstones. ROS General General: Yes fatigue; No weight change, appetite, colon cancer, breast cancer or weakness HEENT HEENT: No difficulty swallowing, eye injury, eye surgery, swollen glands or hoarseness Endo Endocrine: Yes thyroid disease; No diabetes mellitus, thyroid cancer, Hair loss, heat intolerance or cold intolerance Skin Skin: No rash or changing moles Musc Musculoskeletal: No back problems, arthritis, rheumatoid arthritis, gout or joint pain Cardio Cardiovascular: No murmur, pacemaker, heart disease, atrial fibrillation, high blood pressure, heart attack, heart stent, palpitations, shortness of breat with exertion or chest pain Psych Psychiatric: No depression, anxiety or hearing voices Resp Respiratory: No shortness of breath, Yes sleep apnea, No cough, No COPD, No asthma, No emphysema and No wheezing Gastro Gastrointestinal: Yes abdominal pain, Yes nausea or vomiting, Yes diarrhea, Yes constipation, Yes blood in stool, Yes acid reflux, Yes hemorrhoids, No ulcers, Yes gallbladder problem and Yes black,tarry stools [place] Hematologic: No blood thinners, No blood disorders, No bleeding, No anemia and No blood clots Neuro Neurologic: No system reviewed and no additional complaints, except as documented, No as per HPI, No abnormal gait, No abnormal hearing, No abnormal movements, No abnormal speech, No behavioral changes, No burning sensations, No confusion, No convulsions, No disequilibrium, No dizziness, No localized weakness, No frequent falls, No headache(s), No lack of coordination, No loss of vision, No memory loss, No numbness, No other visual disturbances, No radicular pain, No restless legs, No sensory deficit, No syncope, No tingling, No tremor(s), No weakness and No other Exam Const General: cooperative Orientation: alert and oriented x3 HENMT Head: normal to inspection Neck Neck: normal visual inspection and full ROM Chest Chest palpation & inspection: normal inspection of the chest Resp Effort & Inspection: normal respiratory effort Auscultation: clear to auscultation bilaterally Cardio Rate: regular rate Rhythm: regular rhythm GI Inspection: non-distended Palpation: soft and nontender Skin General: no rashes or lesions noted Neuro General: patient alert and patient oriented x3 Extrem General: full ROM Psych Appearance: grossly normal Mental Status: mental status grossly normal Assessment and Plan Assessment and Plan (1) Abdominal pain: Status: Acute Qualifiers: Abdominal location: left upper quadrant Qualified Code(s): R10.12 - Left upper quadrant pain Plan: The patient is having abdominal pain but she says it starts in her back and radiates around the left side of her abdomen. She is also having bloating and diarrhea. She is also having nausea. She says the pain happens immediately after eating and it does not matter what she eats. Given the fact that her pain is on the left and it happens immediately after eating and is accompanied with bloating and diarrhea I am also concerned for gastritis or peptic ulcer disease. My plan is to perform an EGD on Monday. I will evaluate for peptic ulcer disease. If I do not see any ulceration to explain her pain I have also have her scheduled for for laparoscopic cholecystectomy. I have also started her on a PPI and Carafate. (2) Gallstones: Status: Acute Plan: Patient also has gallstones and if her EGD is normal on Monday I will plan for laparoscopic cholecystectomy on . I discussed the procedure in detail with the patient. I discussed the risks, benefits, and alternatives of the procedure. I discussed the risks including but not limited to bleeding, infection, injury to surrounding organs such as the liver, bile duct, bowels. I did discuss the possibility of having to convert to an open procedure as well as the possibility that if any injuries occurred this may necessitate further surgery at a tertiary care center. Jacinto Dorsey MD Pager: [facility] [address] [place] [address], [address] [place] [address] Office: I have examined the patient and the H&P has been reviewed. There are no clinical changes since date of exam.
--- OUTSIDE RECORDS SUMMARY | 2023-03-20 12:02 | XMS RPT_ITS | CCD ---
Author Name Unknown Address [address] [place] [address] Organization [facility] Care Team Providers Care Long Term Care Social Worker Name Role Phone CHAYITO Rivas, Jaclyn Etienne Unavailable [facility] Nurse Unavailable Unavailable NIDIA MACIAS Unavailable Unavailable BRANDON HOPSON Unavailable Unavailable Brandon Hopson Primary Care Provider Brandon Hopson Primary Care Provider MARGO WRIGHT Attending Unavailable BRANDON HOPSON Primary Care Unavailable KRISTINA LAND Attending Unavailable BRANDON HOPSON Primary Care Unavailable BRANDON HOPSON Primary Care Unavailable KRISTINA LAND Referring Unavailable BRANDON HOPSON Primary Care Unavailable KRISTINA LAND Attending Unavailable KRISTINA LAND Referring Unavailable BRANDON HOPSON Primary Care Unavailable BRANDON SIMMONS Attending Unavailable BRANDON HOPSON Primary Care Unavailable RYLAN MEJIA Attending Unavaila BRANDON Dietz Primary Care Unavailable Allergies Allergy Classification Reported Allergen(s) Allergy Type Date of Onset Reaction(s) Facility (19 sources) Latex; Translations: [LATEX] allergy to substance 0 Rash, Swelling [facility] Work Phone: (12 sources) penicillin v Drug Allergy 0 childhood reaction, unsure [facility] Work Phone: (6 sources) Cabbage preparation Drug Allergy 1 Anaphylaxis [facility] (7 sources) metFORMIN; Translations: [METFORMIN] Drug Allergy 3 Diarrhea, Nausea And Vomiting [facility] (7 sources) Penicillins; Translations: [PENICILLINS] Drug Intolerance 7 Hives, Rash [facility] (6 sources) Shellfish Allergy to substance 2 [facility] (6 sources) Sulfonamides (Antibiotic) Drug Intolerance 0 Anaphylaxis, Rash [facility] (1 source) Shellfish; Translations: [SHELLFISH DERIVED] Propensity to adverse reactions to drug (disorder) 2 [facility] (1 source) Sulfonamides (Antibiotic); Translations: [SULFA (SULFONAMIDE ANTIBIOTICS)] Propensity to adverse reactions to drug (disorder) 0 [facility] (1 source) Trimethoprim; Translations: [TRIMETHOPRIM] Drug Allergy 0 [facility] Medications Current Medications Medication Drug Class(es) Dates Sig (Normalized) Sig (Original) fenofibrate 120 mg oral tablet (6 sources) Peroxisome Proliferator Receptor alpha Agonist Start: 06-06-2022 fenofibrate (Fenoglide) 120 MG tablet naproxen 500 mg oral tablet (6 sources) Nonsteroidal Anti-inflammatory Drug Start: 06-13-2022 End: 06-13-2023 take 1 tablet by mouth in the morning naproxen (Naprosyn) 500 MG tablet Indications: Injury of right wrist, initial encounter , Arm injury, right, sequela Take 1 tablet (500 mg) by mouth in the morning and 1 tablet (500 mg) in the evening. Take with meals. 60 tablet 0 06/13/2022 06/13/2023 Active Completed/Discontinued Medications Medication Drug Class(es) Dates Sig (Normalized) Sig (Original) ALPRAZolam 0.5 mg oral tablet (12 sources) Benzodiazepine Start: 08-11-2010 End: 08-11-2014 take 0.5-1 tablets by mouth once daily as needed ALPRAZOLAM 0.5 MG TABS 1/2-1 tablet by mouth daily as needed for panic attack ALPRAZOLAM [id number] Max Rodríguez MD amphetamine aspartate 2.5 mg / amphetamine sulfate 2.5 mg / dextroamphetamine saccharate 2.5 mg / dextroamphetamine sulfate 2.5 mg oral tablet (18 sources) Central Nervous System Stimulant Start: 01-01-2017 ADDERALL 10 MG TABS as directed AMPHETAMINE-DEXT ROAMPHETAMINE [id number] Jaclyn Rivas PA-C Problems Active Problems Problem Classification Problem Date Documented Date Episodic/Chronic Adjustment disorders (6 sources) Adjustment disorder with depressed mood; Translations: [Adjustment disorder with depressed mood] Onset: 01-10-2020 11-26-2021 Chronic Anxiety disorders (12 sources) Generalized anxiety disorder; Translations: [Generalized anxiety disorder] Onset: 01-25-2010 01-25-2010 Chronic Asthma (12 sources) Asthma; Translations: [Unspecified asthma, uncomplicated] Onset: 06-01-2010 06-01-2010 Chronic Attention-deficit, conduct, and disruptive behavior disorders (12 sources) Attention deficit hyperactivity disorder, predominantly inattentive type; Translations: [Other specified behavioral and emotional disorders with onset usually occurring in childhood and adolescence] Onset: 08-11-2014 08-11-2014 Chronic Biliary tract disease (2 sources) Calculus of bile duct without cholangitis or cholecystitis without obstruction; Translations: [Calculus of bile duct without cholangitis or cholecystitis without obstruction] Onset: 03-09-2023 Episodic Esophageal disorders (6 sources) Gastroesophageal reflux disease; Translations: [Gastro-esophageal reflux disease without esophagitis] Onset: 12-18-2020 11-26-2021 Chronic Malaise and fatigue (19 sources) Fatigue; Translations: [Other fatigue] Onset: 06-01-2010 Resolved: 08-11-2014 06-01-2010 Episodic Menstrual disorders (12 sources) Amenorrhea; Translations: [Amenorrhea, unspecified] Onset: 08-27-2014 Resolved: 11-07-2014 11-07-2014 Chronic Nutritional deficiencies (6 sources) Vitamin D deficiency; Translations: [Vitamin D deficiency, unspecified] Onset: 09-12-2011 09-12-2011 Chronic Other injuries and conditions due to external causes (3 sources) Injury of right wrist; Translations: [Unspecified injury of right wrist, hand and finger(s), initial encounter] Episodic Other injuries and conditions due to external causes (4 sources) Injury of upper extremity; Translations: [Unspecified injury of right shoulder and upper arm, sequela] Episodic Other nutritional; endocrine; and metabolic disorders (12 sources) Obesity; Translations: [Metabolic syndrome X] Onset: 06-01-2010 06-01-2010 Chronic Other upper respiratory disease (12 sources) Allergic rhinitis; Translations: [Allergic rhinitis, unspecified] Onset: 01-25-2010 01-25-2010 Chronic Thyroid disorders (20 sources) Hypothyroidism; Translations: [Goiter] Onset: 06-13-2006 Resolved: 08-11-2014 08-11-2014 Chronic Unclassified (6 sources) General examination of patient ; Translations: [Encounter for other general examination] Onset: 09-12-2011 09-12-2011 Past or Other Problems Problem Classification Problem Date Documented Date Episodic/Chronic Acute bronchitis (12 sources) Acute bronchitis; Translations: [Acute bronchitis, unspecified] Onset: 12-07-2010 Resolved: 04-01-2011 12-07-2010 Episodic Deficiency and other anemia (12 sources) Iron deficiency anemia; Translations: [Iron deficiency anemia, unspecified] Onset: 11-07-2014 11-07-2014 Episodic Lymphadenitis (6 sources) Generalized enlarged lymph nodes; Translations: [Generalized enlarged lymph nodes] Onset: 11-07-2014 11-07-2014 Episodic Normal and/or delivery (12 sources) ; Translations: [ state, incidental] Onset: 01-14-2015 Resolved: 09-24-2015 01-14-2015 Episodic Other connective tissue disease (12 sources) Panniculitis, unspecified; Translations: [Panniculitis, unspecified] Onset: 08-20-2009 Resolved: 08-11-2014 08-25-2009 Episodic Other inflammatory condition of skin (12 sources) Other specified erythematous conditions; Translations: [Other specified erythematous conditions] Onset: 08-20-2009 Resolved: 08-11-2014 08-25-2009 Episodic Other injuries and conditions due to external causes (2 sources) Unspecified injury of right wrist, hand and finger(s), initial encounter; Translations: [Unspecified injury of right wrist, hand and finger(s), initial encounter] Onset: 06-13-2022 Episodic Other injuries and conditions due to external causes (2 sources) Unspecified injury of right shoulder and upper arm, sequela; Translations: [Unspecified injury of right shoulder and upper arm, sequela] Onset: 06-13-2022 Episodic Other nervous system disorders (6 sources) Loss of sense of smell; Translations: [Anosmia] Onset: 01-10-2020 11-26-2021 Episodic Other nutritional; endocrine; and metabolic disorders (12 sources) Abnormal weight gain; Translations: [Abnormal weight gain] Onset: 06-01-2010 Resolved: 08-11-2014 06-01-2010 Episodic Other skin disorders (12 sources) Nonscarring hair loss, unspecified; Translations: [Nonscarring hair loss, unspecified] Onset: 11-04-2014 Resolved: 11-07-2014 11-07-2014 Episodic Other upper respiratory infections (10 sources) Streptococcal sore throat; Translations: [Streptococcal pharyngitis] Onset: 04-07-2022 04-07-2022 Episodic Skin and subcutaneous tissue infections (6 sources) Abscess of skin AND/OR subcutaneous tissue; Translations: [Cutaneous abscess, unspecified] Onset: 01-01-2017 01-01-2017 Episodic Unclassified (12 sources) Antibiotic prophylaxis; Translations: [Other specified postprocedural states] Onset: 06-01-2010 Resolved: 09-24-2015 09-24-2015 Unclassified (6 sources) Influenza vaccination ; Translations: [Encounter for immunization] Onset: 01-14-2015 Resolved: 01-16-2015 01-14-2015 Results Test Name Value Interpretation Reference Range Facil ity Vital Signs Date Time Vital Sign Value Performing Clinician Denia dalton 06-13-2022 13:34-0400 Body mass index (BMI) [Ratio] 43.6 kg/m2 Kristina Land APRN - CARPENTER APPRENTICE Work Phone: [email or web address] 06-13-2022 13:34-0400 Body weight 115.21 kg Kristina Land MEDICAL DOSIMETRIST - [employer]PENTER APPRENTICE Work Phone: [email or web address] 06-13-2022 13:34-0400 Diastolic blood pressure 56 mm[Hg] Kristina Land MEDICAL DOSIMETRIST - [employer]PENTER APPRENTICE Work Phone: [email or web address] 06-13-2022 13:34-0400 Heart rate 82 /min Kristina Land MEDICAL DOSIMETRIST - [employer]PENTER APPRENTICE Work Phone: [email or web address] 06-13-2022 13:34-0400 Respiratory rate 14 /min Kristina Land MEDICAL DOSIMETRIST - [employer]PENTER APPRENTICE Work Phone: [facility] 06-13-2022 13:34-0400 SaO2% (BldA) [Mass fraction] 99 % Kristina Land MEDICAL DOSIMETRIST - [employer]PENTER APPRENTICE Work Phone: [facility] 06-13-2022 13:34-0400 Systolic blood pressure 100 mm[Hg] Kristina Land MEDICAL DOSIMETRIST - [employer]PENTER APPRENTICE Work Phone: [facility] 01-01-2017 11:09-0500 BMI (Body Mass Index) 37.76 kg/m2 Jaclyn Rivas PA-C [facility] Work Phone: 01-01-2017 11:09-0500 Body Temperature 98 [degF] Jaclyn Rivas PA-C [facility] Work Phone: 01-01-2017 11:09-0500 BP Diastolic 74 mm[Hg] Jaclyn Rivas PA-C [facility] Work Phone: 01-01-2017 11:09-0500 BP Systolic 108 mm[Hg] Jaclyn Rivas PA-C [facility] Work Phone: 01-01-2017 11:09-0500 Height 162.56 cm Jaclyn Rivas PA-C [facility] Work Phone: 01-01-2017 11:09-0500 Pulse (Heart Rate) 94 /min Jaclyn Rivas PA-C [facility] Work Phone: 01-01-2017 11:09-0500 Respiratory Rate 14 /min Jaclyn Rivas PA-C [facility] Work Phone: 01-01-2017 11:09-0500 Weight 99.79 kg Jaclyn Rivas PA-C [facility] Work Phone: 09-24-2015 17:26-0400 BSA (Body Surface Area) 2.04 m2 Jaclyn Rivas PA-C [facility] Work Phone: Encounters Encounter Date Encounter Type Care Provider Facility Start: 03-09-2023 End: 03-09-2023 Emergency department patient visit [facility] Start: 01-18-2023 Telephone encounter Kristina Carrillo dorcas MEDICAL DOSIMETRIST - [employer]PENTER APPRENTICE Work Phone: [facility] Procedures Date Procedure Procedure Detail Performing Clinician Start: 01-18-2023 Iadna respiratry probe & rev trnscr 3-5 targets Kristina Land MEDICAL DOSIMETRIST - [employer]PENTER APPRENTICE Work Phone: Start: 10-31-2022 HOUSE ACCOUNT TRACKING ([facility]) Aman Hurley by Work Phone: Start: 01-13-2020 Lipid 1996 panel - Serum or Plasma Kristina Land MEDICAL DOSIMETRIST - [employer]PENTER APPRENTICE Work Phone: Start: 11-04-2014 End: 11-05-2014 *CBC with Differential Brandon Marsh Work Phone: Start: 11-04-2014 End: 11-05-2014 Ferritin [Mass/volume] in Serum or Plasma Brandon Hopson DO Work Phone: Start: 11-04-2014 End: 11-05-2014 Thyrotropin [Units/volume] in Serum or Plasma Brandon Hopson DO Work Phone: Start: 11-04-2014 End: 11-05-2014 Thyroxine (T4) free [Mass/volume] in Serum or Plasma Brandon Hopson DO Work Phone: Start: 08-27-2014 End: 08-27-2015 Choriogonadotropin ( test) [Presence] in Serum or Plasma Brandon Hopson DO Work Phone: Start: 08-11-2014 End: 08-29-2014 25-Hydroxyvitamin D2+25-Hydroxyvitamin D3 [Mass/volume] in Serum or Plasma Brandon Hopson DO Work Phone: Start: 11-15-2011 End: 11-24-2011 Us soft tissue head & neck real time imge docm Max Rodríguez MD Start: 09-12-2011 End: 09-12-2011 Follow-up visit Max Rodríguez MD Start: 04-01-2011 End: 04-01-2011 Follow Up Appt 6 months Max Rodríguez MD Start: 12-07-2010 End: 12-07-2010 Follow Up as scheduled Max Rodríguez MD Start: 12-03-2010 End: 12-03-2010 Follow Up Appt 4 months Max Rodríguez MD Start: 08-30-2010 End: 08-30-2010 Follow Up Appt 3 months Max Rodríguez MD Start: 08-11-2010 End: 08-11-2010 Follow Up as scheduled Max Rodríguez MD Start: 06-01-2010 End: 08-13-2010 Assay of thyroid stimulating hormone tsh Max Rodríguez MD Start: 06-01-2010 End: 08-17-2010 Assay of vitamin D Max Rodríguez MD Start: 06-01-2010 End: 08-13-2010 Basic metabolic panel calcium total Max Rodríguez MD Start: 06-01-2010 End: 06-01-2010 Follow Up Appt 3 months Max Rodríguez MD Start: 01-25-2010 End: 08-13-2010 Assay of thyroid stimulating hormone tsh Max Rodríguez MD Start: 01-25-2010 End: 01-25-2010 Follow Up Appt 3 months Max Rodríguez MD Plan of Treatment Date Care Activity Detail Author Start: 2045 RSV Immunization age d 60 or older (1 - 1-dose 60+ series) RSV Immunization aged 60 or older (1 - 1-dose 60+ series) [facility] Start: 2035 Zoster Vaccines (1 of 2) Zoster Vacc joya (1 of 2) [facility] Start: 10-16-2031 DTaP/Tdap/Td Vaccine s (3 - Td or Tdap) DTaP/Tdap/Td Vaccines (3 - Td or Tdap) [facility] Start: 01-12-2025 Lipid panel Lipid Panel [facility] Start: 10-14-2022 COVID-19 Vaccine ( season) COVID-19 Vaccine ( season) [facility] Start: 10-14-2022 Influenza vaccination [facility] Start: 06-13-2022 End: 06-14-2023 XR forearm 2 views right [facility] Work Phone: Immunizations Immunization Date Immunization Notes Care Provider Fa valeriano 11-14-2019 influenza virus vacc ine, unspecified formulation Kristina Land MEDICAL DOSIMETRIST - [employer]PENTER APPRENTICE Work Phone: [facility] 12-26-2013 influenza virus vacc ine, unspecified formulation Kristina Land MEDICAL DOSIMETRIST - [employer]PENTER APPRENTICE Work Phone: [facility] 12-19-2008 influenza virus vacc ine, unspecified formulation Kristina Land MEDICAL DOSIMETRIST - [employer]PENTER APPRENTICE Work Phone: [facility] 06-18-2008 hepatitis B vaccine, adult dosage Kristina Land MEDICAL DOSIMETRIST - [employer]PENTER APPRENTICE Work Phone: [facility] 12-26-2007 influenza virus vacc ine, unspecified formulation Kristina Land MEDICAL DOSIMETRIST - [employer]PENTER APPRENTICE Work Phone: [facility] 03-20-2007 RHO(D) immune globul in - IM Kristina Land MEDICAL DOSIMETRIST - CARPENTER APPRENTICE Work Phone: [facility] Payers Date Payer Category Payer Medicaid [employer] UHC MEDICAID [facility] [id number] 2022-Present [phone] [address] [place] [address] Medicaid HMO [id number] 2022 Medicaid [id number] 2016 Medicaid [id number] 1985 Unknown [id number] 1985 Unknown [id number] Social History Date Type Detail Facility Tobacco smoking status [facility] Never smoked tobacco [facility] Start: 06-13-2022 Alcohol intake Current drinke r of alcohol (finding) [facility] Start: 1985 Sex Assigned At Not on file [facility] Start: 06-03-2022 End: 06-13-2022 Exposure to SARS-CoV-2 (event) Not sure [facility] Start: 06-13-2022 History of Social function [facility] Start: 06-13-2022 Tobacco use panel [facility] Clinical Notes 04-07-2022 to 01-19-2023 Telephone Encounter - Yenni Pacheco - 01/19/2023 3:49 PM ESTTelephone Encounter - Yenni Pacheco - 01/19/2023 3:49 PM ESTTelephone Encounter - Ellie Banuelos MA - 01/18/2023 11:23 AM EST Note Date & Type Note Facility 01-19-2023 Telephone encount er Note Kristina documented results. [facility] 01-19-2023 Miscellaneous Notes Formattin g of this note might be different from the original. Kristina documented results. She is added to nurse schedule, please enter results. Thanks! Order placed for POC COVID-19 and Flu A/B test. Patient c/o feeling hot and cold but no fever, temp was 98.6 orally when she checked it. C/o nausea, no vomiting. Thinks she has possible food poisoning from dinner last night. Sx onset middle ogf the night. Requesting COVID and flu test to rule out. documented in this encounter [facility] 01-18-2023 Note Order placed for POC COVID-19 and Flu A/B test. [facility] 01-18-2023 Telephone encount er Note She is added to nurse schedule, please enter results. Thanks! [facility] 01-18-2023 Telephone encount er Note Order placed for POC COVID-19 and Flu A/B test. [facility] 01-18-2023 Telephone encount er Note Patient c/o feeling hot and cold but no fever, temp was 98.6 orally when she checked it. C/o nausea, no vomiting. Thinks she has possible food poisoning from dinner last night. Sx onset middle ogf the night. Requesting COVID and flu test to rule out. [facility] 06-13-2022 History of Presen t illness Narrative Comparative Sociology Professor for Intimate and Non Intimate Exam Comparative Sociology Professor was declined Comparative Sociology Professor: na Images from the original note were not included. 06/13/2022 Elliott Flores (: 1985) is a 37 y.o. female , Established patient, here for evaluation of the following chief complaint(s): Arm Pain (right) ASSESSMENT/PLAN: 1. Injury of right wrist, initial encounter - XR wrist 3+ views right - naproxen (Naprosyn) 500 MG tablet; Take 1 tablet (500 mg) by mouth in the morning and 1 tablet (500 mg) in the evening. Take with meals., Starting 06/13/2022, Until Mon06/13/2023, Normal - Ice for pain/swelling. - Will obtain imaging for further evaluation with known trauma to the area and swelling. 2. Arm injury, right, sequela - XR forearm 2 views right - XR wrist 3+ views right - naproxen (Naprosyn) 500 MG tablet; Take 1 tablet (500 mg) by mouth in the morning and 1 tablet (500 mg) in the evening. Take with meals., Starting 06/13/2022, Until Mon06/13/2023, Normal Follow up if symptoms worsen or fail to improve. SUBJECTIVE/OBJECTIVE: NISHA Zaman presents today with concerns of right arm pain that started abruptly yesterday when she was sitting on the floor with her arm outstretched and her parent's 45-50 pound dog came running into her arm. She leaning on her right arm with it fully extended when the dog ran into her arm coming towards her. Her arm gave out. Has been experiencing pain from her elbow down into her hand ever since. Pain is worse in her right forearm and wrist and has been experiencing a zapping pain sensation. Has swelling in the area as well. Has taken 600 mg of Ibuprofen OTC which has helped some. Review of Systems Musculoskeletal: Positive for arthralgias and joint swelling. Vitals: 06/13/22 1334 BP: 100/56 Pulse: 82 Resp: 14 SpO2: 99% Weight: 254 lb (115 kg) Physical Exam Constitutional: General: She is not in acute distress. Appearance: She is not ill-appearing or diaphoretic. Pulmonary: Effort: Pulmonary effort is normal. Musculoskeletal: Right forearm: Swelling and tenderness present. Right wrist: Swelling and tenderness present. No deformity or lacerations. Normal range of motion. Normal pulse. Arms: Comments: Systems Program Manager strength 4/5 in right hand. Neurological: Mental Status: She is alert and oriented to person, place, and time. Psychiatric: Mood and Affect: Mood normal. Behavior: Behavior normal. Thought Content: Thought content normal. Judgment: Judgment normal. An electronic signature was used to authenticate this note. GINA Pollack CNP 06/13/2022 2:11 PM documented in this encounter [facility] 04-07-2022 Note Exposure to strep.wi ll treat with antibiotic. Reviewed and provided written patient education/instructions regarding diagnosis and management. Reviewed symptom management with non-pharmacological interventions and appropriate use of otc medications for relief of symptoms. Follow up for worsening or no improvement in symptoms. [facility] documented in this encounter [facility] Diagnosis Injury of right wrist, initial encounter Arm injury, right, sequela [facility] Diagnosis Arm injury, right, sequela documented in [facility] Diagnosis Malaise- Primary Other malaise and fatigue documented in this encounter [facility] Summary Purpose Family History No Family History Records FoundNo Family History Records FoundNo Family History Records FoundNo Family History Records Found Advance Directives No Advanced Directives Records FoundNo Advanced Directives Records FoundNo Advanced Directives Records FoundNo Advanced Directives Records Found Additional Source Comments INFORMATION SOURCE (unrecogn ized section and content) DATE CREATED AUTHOR AUTHOR'S ORGANIZ ATION 02/23/2019 [facility] DATE CREATED AUTHOR AUTHOR'S ORGANIZ ATION 01/20/2023 [facility] DATE CREATED AUTHOR AUTHOR'S ORGANIZ ATION 03/16/2023 [facility] Reason for Visit (unrecogniz ed section and content) Reason Onset Date Comments Orders 01/18/2023 Care Teams (unrecognized sec tion and content) Long Term Care Social Worker Relationship Specialty Start Date End Date Brandon Hopson [address] [place] [address] PCP - General 08/28/17 Long Term Care Social Worker Relationship Specialty Start Date End Date Brandon Hopson [address] [place] [address] PCP - General 08/28/17 Long Term Care Social Worker Relationship Specialty Start Date End Date Brandon Hopson [address] [place] [address] PCP - General 08/28/17 Long Term Care Social Worker Relationship Specialty Start Date End Date Brandon Hopson [address] [place] [id number] PCP - General 08/28/17 FOR RECORDS PERTAINING TO PATIENTS WHO ARE OR HAVE BEEN ENROLLED IN A CHEMICAL DEPENDENCY/SUBSTANCEABUSE PROGRAM, SOME INFORMATION MAY BE OMITTED. This clinical summary was aggregated from multiple sources. Caution should be exercised in using it in the provision of clinical care. This summary normalizes information from multiple sources, and as a consequence, information in this document may materially change the coding, format and clinical context of patient data. In addition, data may be omitted in some cases. CLINICAL DECISIONS SHOULD BE BASED ON THE PRIMARY CLINICAL RECORDS. [facility]. provides no warranty or guarantee of the accuracy or completeness of information in this document.
[2023-03-20 12:15] VITALS: BP 105/51; PULSE 69; RESP 16; TEMP 36.6; O2SAT 100; BMI 40.4
[2023-03-20] MEDS: Lactated Ringers 1,000 ML 15 ML IV (12:15)
[2023-03-20 13:15] VITALS: BP 105/51; BP 96/43; PULSE 64; RESP 18; TEMP 37.6; O2SAT 97
[2023-03-20 13:20] VITALS: BP 105/51; BP 112/56; PULSE 68; RESP 18; O2SAT 97
--- NOTE | 2023-03-20 13:22 | OP.CCLET_ITS ---
03/20/2023 Og Hopson [address] [place] [address] Re : Upper GI endoscopy procedure for Junie Cobb Dear Dr. Hopson This procedure was performed on Monday, March 20, 2023. My impressions and recommendations are as follows: Impressions : - Normal esophagus. - Normal stomach. - Normal examined duodenum. - No specimens collected. Recommendations : - Discharge patient to home. - Resume previous diet. - Continue present medications. My findings are described in the full procedure note, which is enclosed. If I can be of further assistance, please feel free to contact me at Doctor phone number(s): , Work: . Sincerely, Jacinto Dorsey MD 03/20/2023 1:22:15 PM This report has been signed electronically.
--- NOTE | 2023-03-20 13:22 | OP.EGD_ITS ---
Patient Name: Junie Cobb Procedure Date: 03/20/2023 12:53 PM Date of : 1985 Age: 38 Procedure: Upper GI endoscopy Indications: Epigastric abdominal pain, Abdominal pain in the left upper quadrant Providers: Jacinto Dorsey MD Medicines: Monitored Anesthesia Care Patient Profile: This is a 38 year old female. Refer to note in patient chart for documentation of history and physical. Complications: No immediate complications. Procedure: Pre-Anesthesia Assessment: - Prior to the procedure, a History and Physical was performed, and patient medications and allergies were reviewed. The patient's tolerance of previous anesthesia was also reviewed. The risks and benefits of the procedure and the sedation options and risks were discussed with the patient. All questions were answered, and informed consent was obtained. Prior Anticoagulants: The patient has taken no anticoagulant or antiplatelet agents. After reviewing the risks and benefits, the patient was deemed in satisfactory condition to undergo the procedure. After obtaining informed consent, the endoscope was passed under direct vision. Throughout the procedure, the patient's blood pressure, pulse, and oxygen saturations were monitored continuously. The gastroscope was introduced through the mouth, and advanced to the fourth part of duodenum. The upper GI endoscopy was accomplished without difficulty. The patient tolerated the procedure well. Scope In: 1:07:08 PM Scope Out: 1:09:20 PM Total Procedure Duration Time 0 hours 2 minutes 12 seconds Findings: The esophagus was normal. The stomach was normal. The examined duodenum was normal. Impression: - Normal esophagus. - Normal stomach. - Normal examined duodenum. - No specimens collected. Recommendation: - Discharge patient to home. - Resume previous diet. - Continue present medications. Procedure Code(s): --- Professional --- 11955, Esophagogastroduodenoscopy, flexible, transoral; diagnostic, including collection of specimen(s) by brushing or washing, when performed (separate procedure) Diagnosis Code(s): --- Professional --- R10.13, Epigastric pain R10.12, Left upper quadrant pain CPT copyright 2021 [employer]. All rights reserved. The codes documented in this report are preliminary and upon events intern review may be revised to meet current compliance requirements. Jacinto Dorsey MD 03/20/2023 1:22:15 PM This report has been signed electronically. Number of Addenda: 0 Note Initiated On: 03/20/2023 12:53 PM
[2023-03-20 13:25] VITALS: BP 105/51; BP 116/63; PULSE 59; RESP 16; O2SAT 100
[2023-03-20 13:32] VITALS: BP 105/51; BP 117/65; PULSE 56; RESP 18; TEMP 37.1; O2SAT 99
[2023-03-20 13:44] VITALS: BP 105/51
== END 2023-03-20 14:09 | disposition home or self-care (01) ==
LOC: SDC 11:54 → AC 11:55
PROVIDERS: PCP Family Medicine; Referring Provider Surgery; Visit Provider Surgery
PROC: 0DJ08ZZ Inspection of Upper Intestinal Tract, Via Natural or Artificial Opening Endoscopic (ICD-10-PCS; CPT 43235; principal; 2023-03-20 12:55)
DX: R10.13 Epigastric pain (principal); K80.20 Calculus of gallbladder without cholecystitis without obstruction; E06.3 Autoimmune thyroiditis; R10.12 Left upper quadrant pain; K21.9 Gastro-esophageal reflux disease without esophagitis; Z79.899 Other long term (current) drug therapy; Z79.890 Hormone replacement therapy
CPT/HCPCS: 43235; J7120; J2405

== ENCOUNTER 2023-03-23 11:33 | Day surgery (SDC) | payer MEDICAID, SELFPAY ==
[2023-03-23] VITALS (9 sets, daily range): BP systolic 107–143; BP diastolic 69–86; PULSE 56–74; RESP 16–188; TEMP 36.1–36.5; O2SAT 94–100; BMI 40.6
[2023-03-23 12:09] LABS: Hematocrit 35.4 % (37-47); Hemoglobin 10.2 g/dL (12.0-15.0); Mean Corp Hgb Conc 28.8 g/dL (32-36); Mean Corpuscular Hgb 21.7 pg (27.0-32.0); Mean Corpuscular Volume 75.5 fL (81-99); Mean Platelet Vol. 9.3 fl (6.2-12.0); Platelet Count 342 K/mm3 (150-450); RBC Distribution Width CV 16.9 % (11.6-14.6); RBC Distribution Width SD 45.5 fl (35.1-43.9); Red Blood Count 4.69 M/mm3 (4.2-5.4); White Blood Count 6.3 K/mm3 (4.4-11.0)
[2023-03-23] MEDS: Lactated Ringers 1,000 ML 15 ML IV (12:09)
[2023-03-23 12:43] LABS: Thyroid Stim Hormone (TSH) 1.65 uIU/mL (0.358-3.74)
--- NOTE | 2023-03-23 12:57 | HP.PCM_ITS ---
History and Physical Date of Admission: 03/23/23 Intake Vital Signs 01/26/2315:44 03/17/2413:23 Height 5 ft 4 in 5 ft 4 in Weight: 238 lb BMI 40.8 BP 110/76 Blood Pressure Location Rt brachial Position Sitting Respiration 18 17 Pulse 93 87 Pulse Source Monitor Monitor Temp 99.4 F H 96.6 F L Temp Source Temporal Temporal Pulse Oximetry (%) 99 98 Oxygen Delivery Method room air room air Intake Visit Reasons: GALLBLADDER Chief Complaint: gallbladder Is patient in pain?: Yes Allergies latex Allergy (Intermediate, Verified 03/17/23 15:13) body rashpenicillin G Allergy (Verified 03/17/23 15:13) Hives as a child. No reaction as an adultshellfish derived Allergy (Verified 03/17/23 15:13) Rashsulfamethoxazole [From Bactrim] Allergy (Verified 03/17/23 15:13) Anaphylaxistrimethoprim [From Bactrim] Allergy (Verified 03/17/23 15:13) Anaphylaxishydrocodone Adverse Reaction (Intermediate, Verified 03/17/23 15:13) Nausea/Vom/Diarrhea Medications dextroamphetamine-amphetamine 10 mg tablet (Adderall) 10 mg PO .MOTUWETHFR NOON 10/31/22 [History Confirmed 03/17/23] dextroamphetamine-amphetamine 30 mg tablet (Adderall) 30 mg PO MOTUWETHFR 10/31/22 [History Confirmed 03/17/23] ropinirole 2 mg tablet 2 mg PO QHS PRN PRN restless leg(s) 10/31/22 [History Confirmed 03/17/23] thyroid (pork) 60 mg tablet (Niva Thyroid) 60 mg PO DAILY PRN SYMPTOMATIC JOCELYN 11/01/22 [History Confirmed 03/17/23] docusate sodium 50 mg capsule 50 mg PO DAILY PRN constipation 03/17/23 [History Confirmed 03/17/23] omeprazole 40 mg capsule,delayed release 40 mg PO DAILY #30 caps 03/17/23 [Rx Confirmed 03/17/23] sucralfate 1 gram tablet (Carafate) 1 g PO QACHS #60 tabs 03/17/23 [Rx Confirmed 03/17/23] PFSH Medical History Abdominal panniculus Acute postoperative anemia due to expected blood loss Advanced maternal age (AMA) in Alcohol use Anemia Anxiety and depression Contraception management COVID CPAP (continuous positive airway pressure) dependence Fatigue Gastric reflux Goiter Jocelyn's disease Hidradenitis Hormone deficiency Hx of hypotension Hypothyroidism (acquired) Intertrigo Intradermal nevus of face Intradermal nevus of neck Intradermal nevus of torso Leg cramps Macrosomia of fetus affecting management of mother Migraine headache Migraine headache Non-smoker Nonhealing surgical wound Open wound anterior abdominal wall Open wound, abdominal wall, lateral Panniculitis Restless legs Rh negative status during Seasonal allergies Shortness of breath on exertion Skin yeast infection Supervision of high risk , unspecified, first trimester Thyroid disease UTI (urinary tract infection) Surgical History H/O bilateral salpingectomy History of excision of lesion History of incision and drainage History of nasal surgery Hx of arthroscopy of right knee Hx of surgical procedure Hx of tonsillectomy Status post vaginal delivery Family History Other Anemia Anesthesia complication Asthma CVA (cerebral vascular accident) Depression Diabetes Hypertension Thyroid disorder Social History household members: spouse and children housing: house current occupational status: employed Smoking Status: Never smoker alcohol intake: current details: pre substance use type: does not use caffeine: Yes seatbelt use: always do you feel safe at home: Yes additional social history: Dario- works at a [employer] patient works at a [employer] Female Reproductive History Menstrual Ab induced: 0 Ab spontaneous: 0 Ectopics: 0 HPI HPI HPI: Patient is a 38-year-old female here with abdominal pain. She says that about a week and a half ago she had an episode that awoke her from sleep. This is never happened in the past. She said the pain was in her back and radiated around her left side and sometimes radiates around her right side. She says that it happens especially after eating and she said it happens within 30 minutes. She says she is having severe nausea and has not been able to eat much lately. She said that she is also having bloating and diarrhea. She was recently in the emergency room and had a CT scan that showed gallstones. ROS General General: Yes fatigue; No weight change, appetite, colon cancer, breast cancer or weakness HEENT HEENT: No difficulty swallowing, eye injury, eye surgery, swollen glands or hoarseness Endo Endocrine: Yes thyroid disease; No diabetes mellitus, thyroid cancer, Hair loss, heat intolerance or cold intolerance Skin Skin: No rash or changing moles Musc Musculoskeletal: No back problems, arthritis, rheumatoid arthritis, gout or joint pain Cardio Cardiovascular: No murmur, pacemaker, heart disease, atrial fibrillation, high blood pressure, heart attack, heart stent, palpitations, shortness of breat with exertion or chest pain Psych Psychiatric: No depression, anxiety or hearing voices Resp Respiratory: No shortness of breath, Yes sleep apnea, No cough, No COPD, No asthma, No emphysema and No wheezing Gastro Gastrointestinal: Yes abdominal pain, Yes nausea or vomiting, Yes diarrhea, Yes constipation, Yes blood in stool, Yes acid reflux, Yes hemorrhoids, No ulcers, Yes gallbladder problem and Yes black,tarry stools West Hematologic: No blood thinners, No blood disorders, No bleeding, No anemia and No blood clots Neuro Neurologic: No system reviewed and no additional complaints, except as documented, No as per HPI, No abnormal gait, No abnormal hearing, No abnormal movements, No abnormal speech, No behavioral changes, No burning sensations, No confusion, No convulsions, No disequilibrium, No dizziness, No localized weakness, No frequent falls, No headache(s), No lack of coordination, No loss of vision, No memory loss, No numbness, No other visual disturbances, No radicular pain, No restless legs, No sensory deficit, No syncope, No tingling, No tremor(s), No weakness and No other Exam Const General: cooperative Orientation: alert and oriented x3 HENMT Head: normal to inspection Neck Neck: normal visual inspection and full ROM Chest Chest palpation & inspection: normal inspection of the chest Resp Effort & Inspection: normal respiratory effort Auscultation: clear to auscultation bilaterally Cardio Rate: regular rate Rhythm: regular rhythm GI Inspection: non-distended Palpation: soft and nontender Skin General: no rashes or lesions noted Neuro General: patient alert and patient oriented x3 Extrem General: full ROM Psych Appearance: grossly normal Mental Status: mental status grossly normal Assessment and Plan Assessment and Plan (1) Abdominal pain: Status: Acute Qualifiers: Abdominal location: left upper quadrant Qualified Code(s): R10.12 - Left upper quadrant pain Plan: The patient is having abdominal pain but she says it starts in her back and radiates around the left side of her abdomen. She is also having bloating and diarrhea. She is also having nausea. She says the pain happens immediately after eating and it does not matter what she eats. Given the fact that her pain is on the left and it happens immediately after eating and is accompanied with bloating and diarrhea I am also concerned for gastritis or peptic ulcer disease. My plan is to perform an EGD on Monday. I will evaluate for peptic ulcer disease. If I do not see any ulceration to explain her pain I have also have her scheduled for for laparoscopic cholecystectomy. I have also started her on a PPI and Carafate. (2) Gallstones: Status: Acute Plan: Patient also has gallstones and if her EGD is normal on Monday I will plan for laparoscopic cholecystectomy on . I discussed the procedure in detail with the patient. I discussed the risks, benefits, and alternatives of the proc edure. I discussed the risks including but not limited to bleeding, infection, injury to surrounding organs such as the liver, bile duct, bowels. I did discuss the possibility of having to convert to an open procedure as well as the possibility that if any injuries occurred this may necessitate further surgery at a tertiary care center. Jacinto Dorsey MD Pager: [facility] [address] [place] [address], [place] [address] Office: I have examined the patient and the H&P has been reviewed. There are no clinical changes since date of exam. The patient had EGD on Monday which was normal. We then planned on proceeding with laparoscopic cholecystectomy today. Jacinto Dorsey MD Pager: [facility] [address] [place] [address], [place] [phone] Office:
[2023-03-23] MEDS: Clindamycin 900 MG/50 ML BAG 75 MG IV (13:39)
--- NOTE | 2023-03-23 13:40 | RAD_ITS ---
STUDY: INTRAOPERATIVE CHOLANGIOGRAM. REASON FOR EXAM: Female, 38 years old. LAP JANNETH FLUOROSCOPY TIME (if supplied): ( 9 seconds ) minutes/seconds. 5.82 mGy TECHNIQUE: An intraoperative cholangiogram was performed by the surgeon. Imaging was provided. COMPARISON: None. FINDINGS: The visualized and show an extrahepatic biliary ducts are unremarkable. No intraluminal filling defect is seen. There is free flow of contrast into the duodenum. RAD/Cholangiogram/ O R,Initial IMPRESSION: Unremarkable intraoperative cholangiogram. Electronically Signed: Donnell Garber MD at 10:16 EST ,
[2023-03-23] MEDS: Bupivacaine 0.25% 30 ML Vial (14:23)
--- NOTE | 2023-03-23 14:37 | OP.PCM_ITS ---
Report of Operation Date of Procedure: 03/23/23 Pre-Operative Diagnosis: Cholelithiasis and biliary colic Post-Operative Diagnosis: Same Surgery/Procedure Performed:: Laparoscopic cholecystectomy with cholangiograms Type of Anesthesia: General/Regional Specimen's removed: Gallbladder Estimated Blood Loss (mL): 10 Description of Procedure: After obtaining informed consent patient was brought back to the operating room. General anesthesia was induced. The abdomen was prepped and draped in usual sterile fashion. A small midline incision was made superior to the umbilicus and deepened to the level of fascia. The fascia was elevated and incised. Next the peritoneum was elevated and incised in the same fashion. Finger sweep was performed and the Fonseca trocar was placed into the abdomen. The balloon was inflated. The abdomen was inflated to 15 mmHg. Next a camera was introduced into the abdomen and the abdomen was inspected. Next under direct visualization three 5-mm ports were placed one subxiphoid and 2 subcostal. Next the gallbladder was elevated and retracted toward the right shoulder. The peritoneum was stripped from the gallbladder. The infundibulum was located and retracted laterally. Next the triangle of Calot was dissected and the cystic duct and cystic artery were identified. Cholangiograms were performed. The patient does have a shellfish allergy so she was pretreated with Benadryl and the contrast was diluted in half. The Mitchell clamp was used to clamp across the infundibulum and the catheter needle was inserted into the gallbladder. Under fluoroscopy contrast was instilled into the gallbladder and the common duct, cystic duct as well as proximal hepatic ducts were identified. There was good filling of the duodenum. There were no filling defects noted in the common bile duct. The clamp was removed as well as the needle and the infundibulum was grasped once more. Three hemolock clips were placed across the cystic duct. The cystic duct was then divided leaving 2 clips on the stump. The cystic artery was clipped and divided in the same fashion. The hook cautery was then used to take the gallbladder off of the gallbladder bed. Hemostasis was obtained. Gallbladder fossa was irrigated and no active bleeding or bile leakage was noted. Next the camera was introduced in the subxiphoid port. An Endopouch bag was placed through the umbilical port and the gallbladder was placed into it. The gallbladder was then removed through the umbilical incision. The camera was then reinserted through the umbilical port. The gallbladder fossa was inspected once more and noted to be hemostatic with no leaking bile. The abdomen was suctioned dry. The 5 mm ports were removed under direct visualization. The umbilical port was then removed and the air was removed from the abdomen. Next using an 0 Vicryl suture the umbilical fascia was closed in a [id number] fashion. The umbilical port site was irrigated local anesthetic was administered to all the incisions. All the incisions were closed with interrupted subcuticular 4-0 Monocryl sutures followed by Steri- Strips and dressings. The patient was awoken and taken to PACU in stable condition. Admit VTE Documentation VTE Mechan Device Prophylaxis: SCD's
--- NOTE | 2023-03-23 14:38 | DCINST_ITS ---
Discharge Instructions Procedure Gallbladder Diet Discharge Diet: Light diet - advance as tolerated Activity Discharge Activity: May Not Drive (for 2-3 days or while taking narcotic pain medications.) and - (Do not drive, work heavy equipment or sign legal documents for 24 hours.) May shower in (days): 1 Lifting Restrictions: 20 lbs for 2 weeks Additional Activity Instructions:: Pain medication may cause nausea. You should typically eat light foods as you take your pain medications. Pain medication may also cause constipation. If this is a problem for you, please discuss with your doctor. Dressing / Incision Call your doctor if your incision/area has: Continuous Slow Oozing, Sudden Increased Bleeding, Increased Pain/ Swelling, Increased Redness and Foul Smelling Discharge Call your doctor if you observe: Fever of 101 or Higher Suture Line Care: Avoid Pulling/Pushing and Avoid Pinching/Bending Remove Dressing in: 2 days Additional Dressing/Incision Instructions:: Leave operative bandaids on for 2 days. When you remove dressing, leave Steri-Strips on until your follow-up appointment, or until the Steri-Strips fall off on their own. Take ibuprofen and Tylenol alternating for pain, oxycodone for breakthrough pain. Follow Up Care Please Follow Up With: Jacinto Dorsey MD When: Please call to schedule 2 week follow up appointment. [phone] Test Results: Test results from this visit will be discussed in further detail at your follow- up appointment, if applicable. Discharge Plan Admission Attending Provider: Jacinto Dorsey Primary Care Provider: Og Hopson Discharge Orders/Prescriptions Prescriptions: New oxycodone 5 mg Tablet 5 - 10 mg PO Q4H PRN PRN (Reason: Pain Score 4-10/10) 5 Days Qty: 20 0RF No Action omeprazole 40 mg capsule,delayed release(DR/EC) 40 mg PO DAILY Qty: 30 2RF dextroamphetamine-amphetamine [Adderall] 30 mg tablet 30 mg PO MOTUWETHFR dextroamphetamine-amphetamine [Adderall] 10 mg tablet 10 mg PO .MOTUWETHFR NOON ropinirole 2 mg tablet 2 mg PO QHS PRN PRN (Reason: restless leg(s)) thyroid (pork) [Niva Thyroid] 60 mg tablet 60 mg PO DAILY PRN (Reason: SYMPTOMATIC PATRICIA) docusate sodium 50 mg capsule 50 mg PO DAILY PRN (Reason: constipation) Referrals / Follow Up: Og Hopson DO [Primary Care Provider] - Disposition Disposition (needs filled in before D/C Order can be placed): Home, Self Care
--- NOTE | 2023-03-24 | GALL_PTH ---
PATHOLOGY RESULTS PATIENT: ELLIOTT FLORES LOC: [facility] U#:[id number] AGE/SX: 38/F ROOM: RE03/23/[address]: Dr. Jacinto Dorsey MD : 1985 BED: DIS: 03/23/2023 SPEC #: [id number] RECD: 03/24/23 10:01 STATUS: TYSHAWN ROSALES #: [id number] ENA: 03/24/23 00:[address]: Jacinto Dorsey DEPT: SURGICAL PATHOLOGY RECD BY: Sadi Meadows ENTERED: 03/24/23 10:02 SP TYPE: CAYETANO CUETO DR: Dr. Og Hopson, DO Tissues: Gallbladder, NOS Procedures: Surgery Specimen Level III HEADER OPERATION: Laparoscopic cholecystectomy with IOC PRE-OP DIAGNOSIS: Abdominal pain, gallstones TISSUE SUBMITTED: Gallbladder MICROSCOPIC DIAGNOSIS Gallbladder, cholecystectomy: Chronic cholecystitis and cholelithiasis. SJ:clementine 03/27/2023 MICROSCOPIC DESCRIPTION Slides are reviewed. GROSS DESCRIPTION Received is one container labeled with the patient's name and designated gallbladder. The specimen consists of a gallbladder measuring 7.5 cm in length and up to 3.5 cm in diameter. The external surface is pink-mckinney, smooth and glistening for the most part. Focally it is granular, hemorrhagic and contains cautery artifact. The gallbladder contains a small amount of green-yellow mucoid bile and distended with multiple, multifaceted yellowish-brown stones, stone fragments and sludge material measuring in aggregate 6.0 x 6.0 x 2.0 cm and 0.1 to 1.0 cm in greatest dimension. The mucosa is bile-stained and without any mass lesions. The gallbladder wall measures up to 0.4 cm in thickness. [employer] sections from the gallbladder and the cystic duct are submitted in one cassette. / SJ:clementine 03/24/2023 TC:3 CPT: 32147
== END 2023-03-23 16:31 | disposition home or self-care (01) ==
LOC: SDC 11:33 → AC 11:34
PROVIDERS: Anesthesiology; PCP Family Medicine; Referring Provider Surgery; Visit Provider Surgery
PROC: (CPT 47610; principal; 2023-03-23 13:00)
DX: K80.10 Calculus of gallbladder with chronic cholecystitis without obstruction (principal); Z79.899 Other long term (current) drug therapy; Z79.890 Hormone replacement therapy; K21.9 Gastro-esophageal reflux disease without esophagitis; E06.3 Autoimmune thyroiditis; E03.9 Hypothyroidism, unspecified; K80.50 Calculus of bile duct without cholangitis or cholecystitis without obstruction
CPT/HCPCS: 47563; 74300; 76000; 84443; 85027; 88304; 93005; J7120; J2405

== ENCOUNTER → 2024-10-09 | Outpatient (CLI) | payer MEDICAID, SELFPAY | END | disposition home or self-care (01) | LOC: LAB 11:55 → BWCLAB 13:19 | PROVIDERS: PCP Family Medicine; Referring Provider Obstetrics & Gynecology; Visit Provider Obstetrics & Gynecology | DX: Z00.00 Encounter for general adult medical examination without abnormal findings (principal) ==

== ENCOUNTER → 2024-11-05 | Outpatient (CLI) | payer MEDICAID, SELFPAY ==
--- NOTE | 2024-11-05 11:54 | US_ITS ---
PROCEDURE: PELVIC W/ TRANSVAGINAL 11/05/2024 REASON FOR EXAM: MENORRHAGIA TECHNIQUE: Procedure Code: USPELTVAG Modality: US Procedure: PELVIC W/ TRANSVAGINAL COMPARISON: None. FINDINGS: Measurements: Uterus: 10.0 x 5.7 x 5.1 cm. No focal mass. Normal flow. Endometrial Thickness: 6 mm. No focal mass or nodularity. Right Ovary: 3.1 x 2.2 x 2.0 cm. Normal vascular flow. Left Ovary: 2.5 x 1.9 x 1.6 cm. Normal vascular flow Normal bladder. US/Pelvic w/ Transvaginal IMPRESSION: Normal pelvic ultrasound. Reading Location: [id number]
--- NOTE | 2024-11-05 11:54 | US_ITS ---
PROCEDURE: THYROID 11/05/2024 REASON FOR EXAM: LEFT NODULE TECHNIQUE: Procedure Code: USTHY Modality: US Procedure: THYROID COMPARISON: [facility] 2020. FINDINGS: Right thyroid lobe size: 4.8 x 1.6 x 1.8 cm Left thyroid lobe size: 3.8 x 1.5 x 1.3 cm Isthmus: 0.3 cm Background parenchymal echotexture is slightly heterogeneous Nodules: 1. Lobe: Left, Location: Inferior, Size: 1.5 x 1.3 x 1.3 cm, Stability: Stable Composition: Solid or almost completely solid (+2) Echogenicity: Hyper to Isoechoic (+1) Margin: Smooth (+0) Shape: Wider than tall (+0) Echogenic Foci: None (+0) TI-RADS: 3 US/Thyroid IMPRESSION: Stable left thyroid nodule. This thyroid nodule is now stable for nearly 5 years. TR 1 benign (0 points): No fine-needle aspirate or follow-up required. TR 2 not suspicious (1-2 points): No fine-needle aspirate or follow up required . TR 3 mildly suspicious (3 points): 1.5 centimeter or greater requires follow up at 1, 3 and 5 years. 2.5 centimeters or greater requires fine-needle aspirate. TR 4: Moderately suspicious (4-6 points): 1 centimeter greater requires follow- up in 1, 2, 3 and 5 years. 1.5 centimeters or greater requires fine-needle aspirate. TR 5 highly suspicious (greater than or equal to 7 points,): 0.5 centimeters or greater requires annual follow up up to 5 years. 1.0 centimeters or greater requires fine-needle aspirate. Fine-needle aspirate no more than 2 nodules. Biopsy up to two highest TI-RADS s cores. Follow-up no more than 4 nodules with highest TI-RADS points score. Based on most suspicious nodule. Nodule size = largest diameter Only evaluate nodule if =>5 mm. Growth > 20% in 2 dimensions = worsening. Reading Location: [id number]
--- NOTE | 2024-11-05 11:54 | US_ITS ---
PROCEDURE: PELVIC W/ TRANSVAGINAL 11/05/2024 REASON FOR EXAM: MENORRHAGIA TECHNIQUE: Procedure Code: USPELTVAG Modality: US Procedure: PELVIC W/ TRANSVAGINAL COMPARISON: None. FINDINGS: Measurements: Uterus: 10.0 x 5.7 x 5.1 cm. No focal mass. Normal flow. Endometrial Thickness: 6 mm. No focal mass or nodularity. Right Ovary: 3.1 x 2.2 x 2.0 cm. Normal vascular flow. Left Ovary: 2.5 x 1.9 x 1.6 cm. Normal vascular flow Normal bladder. US/Pelvic w/ Transvaginal IMPRESSION: Normal pelvic ultrasound. Reading Location: [id number]
== END | disposition home or self-care (01) ==
LOC: US 11:51 → LAB 12:54
PROVIDERS: PCP Family Medicine; Referring Provider Obstetrics & Gynecology; Visit Provider Family Medicine
DX: E06.3 Autoimmune thyroiditis (principal); N92.0 Excessive and frequent menstruation with regular cycle; E04.1 Nontoxic single thyroid nodule
CPT/HCPCS: 36415; 76536; 76830; 76856; 84443

== ENCOUNTER → 2024-12-30 | Outpatient (CLI) | payer MEDICAID, SELFPAY ==
--- NOTE | 2024-12-30 09:40 | EMB_PTH ---
PATIENT: ELLIOTT KATZ LOC: [facility] U#:[id number] AGE/SX: 39/F ROOM: RE12/30/[address]: Dr. Adrianne Ingram DO : 1985 BED: DIS: 12/30/2024 SPEC #: [id number] RECD: 12/30/24 12:23 STATUS: TYSHAWN REQ #: [id number] ENA: 12/30/24 09:[address]: Adrianne Ingram DEPT: SURGICAL PATHOLOGY RECD BY: Rizwan Soria ENTERED: 12/30/24 14:18 SP TYPE: ENDOM BX/C OTHR DR: Dr. Og Hopson DO Tissues: A - Endometrium, NOS Procedures: Surgery Specimen Level IV HEADER OPERATION: Endometrial biopsy PRE-OP DIAGNOSIS: Abnormal uterine bleeding TISSUE SUBMITTED: A- Endometrial tissue MICROSCOPIC DIAGNOSIS A. Endometrium, biopsy: * Proliferative endometrium MICROSCOPIC DESCRIPTION Slides are reviewed. GROSS DESCRIPTION A. Received in formalin labeled the patient's name and date of is a 2.6 x 1.8 x 0.3 cm aggregate of mucoid material and flecks of pink-red tissue. Entirely submitted in 1 cassette. IL 12/30/2024 CPT:78831
== END | disposition home or self-care (01) ==
LOC: LABSPEC 11:11
PROVIDERS: PCP Family Medicine; Visit Provider Obstetrics & Gynecology
DX: N93.9 Abnormal uterine and vaginal bleeding, unspecified (principal)
CPT/HCPCS: 88305